=== PATIENT | male | born 1945 | race Caucasian/White ===

== ENCOUNTER → 2017-05-10 10:51 | Outpatient (CLI) | payer BC, SELFPAY ==
[2017-05-10 11:27] LABS: Hemoglobin A1C 6.4 % (0.0-7.0)
[2017-05-10 11:55] LABS: Alanine Aminotransferase 40 U/L (12-78); Albumin Level 4.1 gm/dL (3.4-5.0); Albumin/Globulin Ratio 1.2 (1.1-1.8); Alkaline Phosphatase 52 U/L (46-116); Anion Gap 14.4 mEq/L (5-15); Aspartate Amino Transferase 25 U/L (15-37); Bilirubin,Total 0.5 mg/dL (0.2-1.0); Blood Urea Nitrogen 27 mg/dL (7-18); Calcium 8.8 mg/dL (8.5-10.1); Carbon Dioxide 27 mmol/L (21.0-32.0); Chloride 105 mmol/L (98-107); Chol/HDL Ratio 3.2 (1-3.5); Cholesterol 156 mg/dL (140-200); Creatinine,Serum 1.21 mg/dL (0.70-1.30); Estimated Glomerular Filt Rate 59 ml/min (>60); GFR (African American) 71 ML/MIN (>60); Globulin 3.4 gm/dl (1.3-3.2); Glucose 137 mg/dL (74-106); HDL Cholesterol 49 mg/dL (27-67); LDL Cholesterol 77 mg/dL (0-130); Potassium 4.4 mmoL/L (3.5-5.1); Sodium 142 mmol/L (136-145); Total Protein,Serum 7.5 gm/dL (6.4-8.2); Triglycerides 148 mg/dL (30-200); VLDL Cholesterol 30 mg/dL (0-40)
== END ==
PROVIDERS: PCP Internal Medicine Adolescent Medicine; Visit Provider Internal Medicine Adolescent Medicine
DX: E78.5 Hyperlipidemia, unspecified (principal); E11.9 Type 2 diabetes mellitus without complications
CPT/HCPCS: 36415; 80053; 80061; 83036

== ENCOUNTER → 2017-08-24 15:42 | Outpatient (CLI) | payer BC, SELFPAY ==
--- NOTE | 2017-08-24 15:50 | XR_ITS ---
EXAM: XR cervical spine 5V HISTORY: ITS.REASON: LT ARM PAIN..CERVICAL NEURALGIA ORDERING PHYSICIAN: Roland Dasilva MD PATIENT AGE: 72 years COMPARISON: None FINDINGS: Normal alignment. There is degenerative disc disease at C5-C6 and C6-C7. Anterior osteophytes are present at those levels as well. Foraminal narrowing is noted on the left at C6-C7 and on the right at C3-C4 and C4-C5 and C6-C7. Facet arthritic changes are noted. Incidental vascular calcification of the carotids. IMPRESSION: Cervical spondylosis with degenerative disc disease and facet arthritic change with foraminal narrowing as described above
== END ==
PROVIDERS: PCP Internal Medicine Adolescent Medicine; Visit Provider Internal Medicine Adolescent Medicine
DX: M54.12 Radiculopathy, cervical region (principal); M79.602 Pain in left arm
CPT/HCPCS: 72050

== ENCOUNTER → 2017-09-02 16:08 | Outpatient (CLI) | payer BC, SELFPAY ==
--- NOTE | 2017-09-02 16:12 | MR_ITS ---
MR cervical spine wo con, MR 3-d myelogram/MRCP HISTORY: Left arm tingling and numbness ITS.REASON: CERVICAL NEURALGIA ORDERING PHYSICIAN: Roland Dasilva MD PATIENT AGE: 72 years Comparison: 08/24/2017 TECHNIQUE: Standard multiplanar multiecho sequences are performed without contrast. 3-D MIP and myelographic images are also rendered and reviewed FINDINGS: There is normal alignment. The craniocervical junction has an unremarkable appearance. C2-C3: Mild right-sided foraminal narrowing from facet and uncovertebral hypertrophy. C3-C4: Mild degenerative disc disease with minimal bulging disc slightly eccentric toward the right. Mild right foraminal narrowing from facet and uncovertebral hypertrophy. C4-C5: Minimal uncovertebral hypertrophy with mild bilateral foraminal narrowing. C5-C6: Degenerative disc disease with bulging disc and facet and uncovertebral hypertrophy with borderline narrowing of the canal. There is severe left-sided foraminal narrowing from facet and uncovertebral hypertrophy and mild right-sided foraminal narrowing. There are prominent etiology osteophytes. C6-C7: Degenerative disc disease with bulging disc/disc osteophyte complex eccentric towards the left with borderline narrowing of the canal at 11 mm. There is moderate to severe right foraminal narrowing and severe left foraminal narrowing from the bulging disc/disc osteophyte complex along with uncovertebral and facet hypertrophy. C7-T1: Unremarkable. There is decreased T1 and decreased T2 signal involving the C5 and C6 vertebral bodies with very slight increase in STIR signal. Questionable clinical significance. Blastic lesion at C5 and C6 is a consideration. The cervical spine images however do not support this finding. Does patient have a history of prostate cancer? Bone scan may be of further value clinically warranted. IMPRESSION: 1. There is multilevel cervical spondylosis with degenerative disc disease, bulging disc, and facet and ligamentum flavum hypertrophy. Please see above for detailed description at each level. There is borderline canal stenosis at C5-C6 and C6-C7 with severe left-sided foraminal narrowing at C5-6, moderate to severe right-sided foraminal narrowing at C6-C7 and severe left-sided foraminal narrowing at C6-C7. 2. Decreased T1 and T2 signal of the C5 and C6 vertebral bodies showing slight increased STIR signal. Question clinical significance. Possible blastic lesions. Bone scan may be of further value if clinically warranted
== END ==
PROVIDERS: Family Provider Internal Medicine Adolescent Medicine; PCP Internal Medicine Adolescent Medicine; Visit Provider Internal Medicine Adolescent Medicine
DX: M54.12 Radiculopathy, cervical region (principal)
CPT/HCPCS: 72141; 76376

== ENCOUNTER → 2017-09-12 07:18 | Outpatient (CLI) | payer BC, SELFPAY ==
--- NOTE | 2017-09-12 08:13 | CI_ITS ---
Cerebrovascular Exam Indications: 785.9 Bruit. IMPRESSIONS 1. The bilateral vertebral arteries are patent with normal antegrade flow. 2. Study suggests 20-49% stenosis involving the right internal carotid artery and the left internal carotid artery, lower end of scale. Carotid duplex study. Complete study and Doppler flow study including spectral analysis, color and mar scale imaging. Height: Height: 177.8cm. Height: 70in. Weight: Weight: 88.5kg. Weight: 194.6lb. Body mass index: BMI: 28kg/m^2. Body surface area: BSA: 2.11m^2. Location: Vascular laboratory. Patient status: Outpatient. Tables: Arterial flow: + +--------+--------+ Location V sys V ed + +--------+--------+ Right CCA - proximal 104cm/s 26.7cm/s + +--------+--------+ Right CCA - distal 88.8cm/s 21.2cm/s + +--------+--------+ Right ECA 109cm/s -------- + +--------+--------+ Right ICA - proximal 87.7cm/s 30.3cm/s + +--------+--------+ Right ICA - mid 95.9cm/s 36.4cm/s + +--------+--------+ Right ICA - distal 87.1cm/s 41.9cm/s + +--------+--------+ Right vertebral 40.8cm/s -------- + +--------+--------+ Left CCA - proximal 142cm/s 30.7cm/s + +--------+--------+ Left CCA - distal 92.2cm/s 21.6cm/s + +--------+--------+ Left ECA 124cm/s -------- + +--------+--------+ Left ICA - proximal 78.2cm/s 30cm/s + +--------+--------+ Left ICA - mid 103cm/s 34.2cm/s + +--------+--------+ Left ICA - distal 116cm/s 43.3cm/s + +--------+--------+ Left vertebral 78.2cm/s -------- + +--------+--------+ Velocity ratios: + + + + + + Right, V sys Right, V ed Left, V sys Left, V ed + + + + + + Max ICA/dist CCA 1.08 1.98 1.26 2 + + + + + + (Report amended ) Electronically signed by: Fortunato Pollard [id number]
== END ==
PROVIDERS: Family Provider Internal Medicine Adolescent Medicine; PCP Internal Medicine Adolescent Medicine; Visit Provider Internal Medicine Adolescent Medicine
DX: R09.89 Other specified symptoms and signs involving the circulatory and respiratory systems (principal)
CPT/HCPCS: 93880

== ENCOUNTER 2017-11-04 15:00 | Outpatient (RCR) | payer BC, SELFPAY ==
--- NOTE | 2017-10-14 16:33 | [facility].PTOPEV ---
PT Outpatient Evaluation Rehab PT Outpatient Evaluation Start: 10/14/17 16:10 Freq: Status: Active Protocol: Document 10/14/17 16:10 GERAENRIQUE (Rec: 10/14/17 16:33 GERAADITYAEMILY [email or web address]) Electronically Signed By Javon Vega, PT 10/14/17 16:10 Outpatient Therapy Subjective History Subjective History Patient is a 72 year old male presenting to outpatient PT with reports of LUE radiculopathy of insidious onset starting 08/30/17. Most recent MRI indicated multi- level DDD, spondylosis and disc bulges. Symptoms exacerbated with cervical extension. Comorbidities include HTN and hyperlipidemia . Chief Complaint Pain Stiff Clicks Paresthesia Symptom Type Ache Tingling Symptoms Relieved By Rest/Positioning OTC Meds Prescription Meds Activity Symptoms Aggravated By Physical Activity Prior Functional Limitations None Current Functional Limitations Reaching Lifting Housework Standing Sitting Recreation Activity Walking Level of pain today (0-10) 4 Pain scale - at its best (0-10) 3 Pain scale - at its worst (0-10) 8 Cervical Eval Palpation Cervical Muscles R Cervical Paraspinal L Cervical Paraspinal Cervical/Thoracic Palpation Findings Tenderness Posture Head/C-Spine Posture Sitting Position Neutral Position Flexibility Deficits Upper Trapezius Muscle Length (R) WFL (L) WFL Levaetor Scapulae Muscle Length (R) WFL (L) WFL Pectoralis Minor Muscle Length (R) Mild Tightness (L) Mild Tightness Passive Joint Mobility Cervical PIVM Dec: R OA L OA R AA L AA R C2/3 L C2/3 R C3/4 L C3/4 R C4/5
== END 2017-11-04 15:01 | disposition home or self-care (01) ==
LOC: PT 15:00
PROVIDERS: Family Provider Internal Medicine Adolescent Medicine; PCP Internal Medicine Adolescent Medicine; Visit Provider Internal Medicine Adolescent Medicine
DX: M54.12 Radiculopathy, cervical region (principal)
CPT/HCPCS: 97010; 97012; 97014; 97110; 97163; G0283

== ENCOUNTER → 2018-01-24 09:27 | Outpatient (CLI) | payer BC, SELFPAY ==
--- NOTE | 2018-01-24 09:56 | CT_ITS ---
CT chest w con HISTORY: ITS.REASON: PROSTATE CA WITH BONE METS ORDERING PHYSICIAN: Edilberto Xiong PATIENT AGE: 73 years COMPARISON: None TECHNIQUE: Axial images obtained following the administration of 75 mL of Isovue 370 . Sagittal, and coronal reformatted images are also generated and reviewed. All CT scans at the facility use one or more dose reduction, viz: automated exposure control, ma/kV adjustment per patient size (including targeted exams where dose is matched to indication, i.e. head), or iterative reconstruction technique. FINDINGS: Scattered small nodes are present in the mediastinum some which contain calcification. No mediastinal or hilar mass or adenopathy is evident. No evidence of aortic aneurysm, dissection, or central pulmonary embolus. Normal heart size. No pericardial effusion. There are mild biapical fibrotic changes with mild centrilobular and paraseptal emphysema mild bronchial thickening noted with hyperinflation suggesting small airway disease such as COPD or asthma. There is a nodule located along the left major fissure superiorly which measures 5 mm image 41 series 4. A 6 mm slightly irregular nodule present in the left upper lobe superiorly and posteriorly image #29 series 4. There is degenerative disc disease in lower cervical spine. No obvious blastic foci are evident within the thoracic cage. There are few small foci of increased sclerosis in the endplates of the thoracic spine probably degenerative. IMPRESSION: 1. No convincing evidence of metastatic disease. 2. Indeterminate 6 mm left upper lobe nodule. Suggest 6 month follow-up. 3. Fibrotic changes with centrilobular and paraseptal emphysema/COPD 4. No obvious bony blastic lesions.
--- NOTE | 2018-01-24 09:57 | CT_ITS ---
CT abdomen pelvis w con CLINICAL INDICATION: ITS.REASON: PROSTATE CA WITH BONE METS ORDERING PHYSICIAN: Edilberto Xiong PATIENT AGE: 73 years COMPARISON: None TECHNIQUE: Axial images obtained with sagittal and coronal reformats. All CT scans at the facility use one or more dose reduction, viz: automated exposure control, ma/kV adjustment per patient size (including targeted exams where dose is matched to indication, i.e. head), or iterative reconstruction technique. PROCEDURE: Oral Contrast: Redicat IV Contrast: 75 mL's of Isovue-370 performed in conjunction with the chest CT. FINDINGS: The liver, gallbladder, spleen, pancreas, adrenal glands, and kidneys have an unremarkable appearance. No retroperitoneal adenopathy. No abdominal mass. No intestinal obstruction or free air. No evidence of appendicitis or diverticulitis. There are scattered diverticula in the descending and sigmoid colon. No pelvic mass abnormal fluid collection or focal inflammatory change. There are central prostate calcification. The prostate measures 4.3 x 3.1 cm. There are bilateral hernias which contain fat. No pelvic adenopathy. No fracture or dislocation. There is grade 1-2 spondylitic spondylolisthesis of L5 on S1 with facet arthritic changes at that level. No obvious bony blastic process. IMPRESSION: 1. No convincing evidence of metastatic disease. 2. Grade 1-2 spondylitic spondylolisthesis of L5 on S1 with degenerative disc disease and facet arthritic change there is 10 mm anterolisthesis of L5 3. No obvious bony blastic process. If there are studies which suggest blastic lesions then, an addendum may be added once they're made available. There are no bone scans available at this institution
== END ==
PROVIDERS: PCP Internal Medicine Adolescent Medicine; Visit Provider Internal Medicine Medical Oncology
DX: C61 Malignant neoplasm of prostate (principal); C79.51 Secondary malignant neoplasm of bone
CPT/HCPCS: 71260; 74177; Q9967

== ENCOUNTER → 2018-07-10 08:52 | Outpatient (CLI) | payer BC, SELFPAY ==
--- NOTE | 2018-07-10 08:56 | NM_ITS ---
NM bone scan whole body Ordering Physician: Edilberto Xiong Patient Age: 73 years: Male HISTORY: ITS.REASON: PROSTATE CANCER TECHNIQUE: 3 hours administration 25.9 mCi MDP images entire skeleton were obtained COMPARISON studies :CT chest and CT abdomen January 2018 MRI cervical spine 09/02/2017 AP pelvis 07/10/2018 FINDINGS Increased activity most intense at the lower left cervical spine . This corresponds with the areas of prominent degenerative disc changes partially seen on the CT chest from January 2018... Initially attributed to degenerative change but on closer inspection both prior studies there is a rounded area of relative sclerosis left C6 vertebral on the January CT chest. On the August 2017 MRI C-spine a would note there there also a focal area of abnormal signal at the left C6 vertebral body which then continues into the left pedicle and left facet.-Not typical of a degenerative pattern on MR. Thus in reviewing these patterns I am more suspect that there may indeed be metastatic disease here at C6 and adjacent vertebral body, particularly given the intense nature of activity here on today's bone scan, --- At the pelvis there is increased activity at the medial aspect of the left acetabulum on today's bone scan... A plain film of pelvis from today does show focus increased bone density here medial inferior margin of inferior acetabulum. Close inspection of January CT also shows this increased density both the medial inferior acetabulum on the left as seen on coronal image 54 on that study, there is also a second small small sclerotic focus at the posterior margin ischium at its junction with the acetabulum. These areas suspect for early blastic metastatic deposits ----- There are scattered small foci of of increased signal throughout the spine. These are nonspecific. Initially suspect for metastatic disease but When compared to the CT chest from last January several of these may be reflection of hypertrophic/ degenerative features Specifically noted area projected over right pedicle of T12.-could be related to generous marginal osteophyte here Left T10 costovertebral junction. Hypertrophic changes bilaterally at the costovertebral junction at this level. Right T8 pedicle nonspecific small sclerotic focus mildly suspect for metastatic disease. Tiny focus at the medial left seventh rib mildly suspect for metastatic disease but indeterminate. . Increased activity T6 level.-Which Reflect the prominent posterior element hypertrophy seen here and less likely metastatic disease.. This hypertrophic feature Most evident at midline,, & indents the posterior aspect of thecal sac and yield spinal stenosis. Subtle increased signal seventh rib reflecting old injury versus early lesion. . This patient may benefit from a follow-up PET/CT with agents but specifically for prostate cancer. Understand is been a prior bone scan elsewhere which may also be helpful for comparison if not too far in the remote past IMPRESSION 1. Most intense activity is seen at the lower left cervical spine, compatible with C6 level and possibly adjacent vertebra.. After reviewing prior CT and MR this area most suspect for early metastatic lesion, but also activity here from degenerative changes. 2. Increased activity medial left acetabulum also suspect for early sclerotic blastic metastatic deposit-(see comments body of report as well as AP pelvis from today) 3. Other scattered areas of increased activity throughout T-spine are less specific. Some are degenerative in nature but some could reflect small metastatic foci. to discern these areas of degenerative change versus metastatic disease, you may want toConsider follow-up PET/CT, with ar
--- NOTE | 2018-07-10 12:58 | XR_ITS ---
XR pelvis 1-2V Ordering Physician: Edilberto Xiong Patient Age: 73 years: Male HISTORY: ITS.REASON: HOT SPOT ON BONE SCAN TECHNIQUE: AP osseous pelvis COMPARISON : Nuclear medicine bone scan from today Also a CT abdomen pelvis from January 24, 2018 FINDINGS Osseous pelvis appears intact. Hip joint spaces well-maintained with only borderline narrowing superior joint spaces bilaterally. Femoral head and neck otherwise unremarkable. The sacrum and iliac bone unremarkable. Pubis unremarkable. Particular attention directed towards medial aspect the left acetabulum at the focus of slight increased activity on bone scan. There is a very slight increased density seen at the inferior aspect of the acetabulum on this study. In reviewing prior CT from January 2018 there is slight increased density inferior acetabulum as well as at posterior margin of the iliac bone leading to acetabulum. These may indeed reflect small areas of early metastatic bone disease Small area of increased activity on bone scan correlates with subtle increased osseous density medial inferior aspect of the left acetabulum on this plain film (as well as on prior Jan, 2018 CT) , this area suspect for small focus of early metastatic disease. (Prior January 2018 CT also showed smaller very subtle increased osseous activity along the posterior margin of the ilium at this same level. Possibly reflecting small focus metastatic disease ) IMPRESSION Today's plain films pelvis show a focal dense area at the medial inferior left acetabulum-which corresponds to area of increased activity on today's bone scan. At reviewing prior CT from January as well, this area suspect for small sclerotic, blastic metastatic focus.
== END ==
PROVIDERS: PCP Internal Medicine Adolescent Medicine; Visit Provider Internal Medicine Medical Oncology
DX: C79.51 Secondary malignant neoplasm of bone (principal)
CPT/HCPCS: 72170; 78306; A9503

== ENCOUNTER → 2018-08-22 08:25 | Outpatient (CLI) | payer BC, SELFPAY ==
--- NOTE | 2018-08-22 08:37 | CT_ITS ---
CT abdomen pelvis w con CLINICAL INDICATION: Metastatic prostate cancer ITS.REASON: BONE METASTASES ORDERING PHYSICIAN: Edilberto Xiong PATIENT AGE: 73 years COMPARISON: 01/24/2018 TECHNIQUE: Axial images obtained with sagittal and coronal reformats. All CT scans at the facility use one or more dose reduction, viz: automated exposure control, ma/kV adjustment per patient size (including targeted exams where dose is matched to indication, i.e. head), or iterative reconstruction technique. PROCEDURE: Oral Contrast: Redicat IV Contrast: 50 mL's Optiray 350 performed in conjunction with the chest CT. FINDINGS: The liver, spleen, adrenal glands, pancreas, gallbladder, and kidneys have an unremarkable appearance. No intestinal obstruction or free air. No evidence of appendicitis. There is diverticulosis of the sigmoid colon but no evidence of diverticulitis. There is mild amount of retained colonic feces. Central prostate calcification is noted. The prostate is smaller than when compared to the previous exam measuring 3.4 x 2.7 cm previously 4.3 x 3.1 cm. There are small bilateral inguinal hernias containing. There is now evidence of scattered blastic metastatic foci within the pelvis at the right superior pubic ramus, the left ilium medially, L5 vertebral vertebral body on the right anteriorly, the medial aspect of left acetabulum, left ischial spine, L2 vertebral body superior endplate. IMPRESSION: 1. New scattered blastic metastatic foci 2. Prostate gland is smaller compared to the previous exam. 3. Otherwise negative
--- NOTE | 2018-08-22 08:37 | CT_ITS ---
CT chest w con HISTORY: Metastatic prostate cancer workup ITS.REASON: BONE METASTASES ORDERING PHYSICIAN: Edilberto Xiong PATIENT AGE: 73 years COMPARISON: 01/24/2018 TECHNIQUE: Axial images obtained following the administration of 75 mL of Optiray 350 . Sagittal, and coronal reformatted images are also generated and reviewed. All CT scans at the facility use one or more dose reduction, viz: automated exposure control, ma/kV adjustment per patient size (including targeted exams where dose is matched to indication, i.e. head), or iterative reconstruction technique. FINDINGS: No mediastinal or hilar mass or adenopathy. Normal heart size. There are coronary artery calcifications. COPD with centrilobular and paraseptal emphysema. There is a new small parenchymal opacity in the right lower lobe posterior laterally at 7 x 4 mm. This is nonspecific. No lobar consolidation or collapse. No effusions. There are some minimal scattered fibrotic changes. Previously noted opacity in the left major fissure superiorly and laterally somewhat less apparent. Previously noted nodular density in the left upper lobe posteriorly is less apparent. There are new sclerotic foci present involving the T8 vertebral body posteriorly and superiorly, T7 vertebral body inferiorly, T6 vertebral body superiorly with an additional focus superiorly and posteriorly. Sclerosis involving C7, the right third rib, the transverse process on the left at T10. IMPRESSION: 1. There are multiple new blastic foci of the spine and ribs consistent with metastatic disease. 2. COPD/centrilobular and paraseptal emphysema. 3. A small new parenchymal opacity is 7 x 4 mm is present in the right lower lobe. This nonspecific and could be due to an area of developing fibrosis or atelectasis. 2 other nodular opacities previously noted are somewhat less apparent. Suggest continued follow-up to confirm stability or resolution of the nodular density as metastatic disease cannot totally be excluded
--- NOTE | 2018-08-22 08:37 | CT_ITS ---
CT soft tissue neck w con CLINICAL INDICATION: Metastatic prostate cancer, left neck swelling where is the th [facility].REASON: BONE METASTASES ORDERING PHYSICIAN: Edilberto Xiong PATIENT AGE: 73 years COMPARISON: None TECHNIQUE:Axial images obtained with sagittal and coronal reformats following the intravenous administration of 50 mL of Optiray 350. All CT scans at the facility use one or more dose reduction, viz: automated exposure control, ma/kV adjustment per patient size (including targeted exams where dose is matched to indication, i.e. head), or iterative reconstruction technique. FINDINGS: There is some asymmetry in the nasopharynx with some fullness on the left nonspecific. The sinuses and orbits have an unremarkable appearance. A BB is placed along the palpable nodule of the left neck demonstrating a 21 x 18 x 28 mm lobulated nodule within the inferior aspect of the left parotid gland. There is some heterogeneous density within the nodule. There are few scattered small lymph nodes in the neck. The glottic and subglottic region have an unremarkable appearance. The thyroid gland is unremarkable. Sclerosis involves the C5 and C6 vertebral bodies with severe degenerative disc disease at this area there is a small sclerotic focus involving the C3 vertebral body slightly on the right. IMPRESSION: 1. 28 x 21 x 18 mm lobulated nodule within the inferior aspect of left parotid gland. Differential diagnosis includes a pleomorphic adenoma, Warthin's tumor, or enlarged parotid lymph node. Ultrasound-guided fine-needle aspiration could be performed if clinically desired. 2. Degenerative changes of C5-C6 with suspected sclerotic metastasis in C5 and C6 vertebral body.
== END ==
PROVIDERS: PCP Internal Medicine Adolescent Medicine; Visit Provider Internal Medicine Medical Oncology
DX: C61 Malignant neoplasm of prostate (principal); C79.51 Secondary malignant neoplasm of bone
CPT/HCPCS: 70491; 71260; 74177; Q9967

== ENCOUNTER → 2019-03-01 15:04 | Outpatient (CLI) | payer BC, SELFPAY ==
[2019-03-01 19:09] LABS: Alanine Aminotransferase 35 U/L (12-78); Albumin/Globulin Ratio 1.3 (1.1-1.8); Alkaline Phosphatase 43 U/L (46-116); Anion Gap 17.8 mEq/L (5-15); Aspartate Amino Transferase 14 U/L (15-37); Bilirubin,Total 0.6 mg/dL (0.2-1.0); Blood Urea Nitrogen 26 mg/dL (7-18); Calcium 8.8 mg/dL (8.5-10.1); Carbon Dioxide 25 mmol/L (21.0-32.0); Chloride 102 mmol/L (98-107); Creatinine,Serum 1.52 mg/dL (0.70-1.30); Estimated Glomerular Filt Rate 45 ml/min (>60); GFR (African American) 54 ML/MIN (>60); Globulin 3.2 gm/dl (1.3-3.2); Glucose 281 mg/dL (74-106); Potassium 4.8 mmoL/L (3.5-5.1); Sodium 140 mmol/L (136-145); Total Protein,Serum 7.2 gm/dL (6.4-8.2)
== END ==
PROVIDERS: Visit Provider Internal Medicine Medical Oncology
DX: C61 Malignant neoplasm of prostate (principal)
CPT/HCPCS: 36415; 80053

== ENCOUNTER → 2019-03-05 08:56 | Outpatient (CLI) | payer BC, SELFPAY ==
--- NOTE | 2019-03-05 09:00 | NM_ITS ---
PROCEDURE: NM BONE SCAN WHOLE BODY CLINICAL INDICATION: MTASTATIC CANCER Metastatic prostate cancer, bone metastasis COMPARISON: BONEWB NM bone scan whole body from 07/10/2018 TECHNIQUE: Dose: 25.8 mCi technetium MDP FINDINGS: Multiple foci of increased activity once again noted including, medial aspect of the left acetabulum, right pedicle of T12, costovertebral junction on the left at T10 and to lesser degree on the right at the same level, right T8 costovertebral junction, and the T6 vertebral body as well as the inferior aspect of the sternum at the xiphoid on the right. These areas do appear less intense compared to the previous exam. Previously noted focus of increased activity at T7 rib on the left medially is less apparent.. Slight increased activity in the lower cervical spine as previously described somewhat less apparent on today's exam. No new lesions are demonstrated. IMPRESSION: 1. No new lesions evident. 2. There are multiple small foci of hyperactivity in the spine and ribs and left acetabulum as described above. These areas do appear less intense compared to the previous exam which could be reflection of the technique or interval improvement in metastatic disease. This is most noticeable at the left 7th rib. Dictated by: Cheo Severino MD 03/07/2019 06:27 Electronically signed by Cheo Severino MD in [place] 03/07/2019 06:27
== END ==
PROVIDERS: PCP Internal Medicine Adolescent Medicine; Visit Provider Internal Medicine Medical Oncology
DX: C61 Malignant neoplasm of prostate (principal); C79.51 Secondary malignant neoplasm of bone
CPT/HCPCS: 78306; A9503

== ENCOUNTER → 2019-03-06 08:57 | Outpatient (CLI) | payer BC, SELFPAY ==
--- NOTE | 2019-03-06 09:02 | CT_ITS ---
PROCEDURE: CT ABDOMEN PELVIS W CON CLINICAL INDICATION: PROSTATE CANCER Follow-up prostate cancer COMPARISON: ABDPELW CT abdomen pelvis w con from 01/24/2018 NM BONE SCAN WHOLE BODY from 03/05/2019 CT CHEST W CON from 03/06/2019 TECHNIQUE: IV Contrast: 75ML OPTIRAY 350 Oral Contrast 450ml Redicat Axial images obtained with sagittal and coronal reformats. All CT scans at the facility use one or more dose reduction, viz: automated exposure control, ma/kV adjustment per patient size (including targeted exams where dose is matched to indication, i.e. head), or iterative reconstruction technique. FINDINGS: LOWER THORAX: No acute finding ABDOMEN & PELVIS: Mild thickening of the distal esophagus nonspecific. Liver, spleen, adrenal glands, and pancreas have an unremarkable. The kidneys have an unremarkable appearance. No intra-abdominal mass or retroperitoneal adenopathy evident. There are small bilateral inguinal hernias which contain fat. There is colonic diverticulosis but no evidence of diverticulitis. Unremarkable appendix. Grade 2 spondylitic spondylolisthesis is present at L5-S1. A sclerotic focus is present involving the right aspect of the L5 vertebral body. This is slightly more apparent and well-circumscribed than when compared to the previous exam.. There are multiple small the sclerotic foci in the sacrum centrally at the S1 segment. Sclerotic foci are also present in the left ilium medially and laterally which have developed in the interval. Sclerotic focus is present in the left acetabulum more prominent than when compared to the previous study. There is also sclerotic focus in the right superior pubic ramus. IMPRESSION: 1. Multiple sclerotic lesions of the skeleton as described above within the lumbar spine sacrum left ilium and pelvis consistent with blastic bony metastasis which have increased and/or developed since the previous exam. The bone scan is not remarkable for increased activity at many of these areas. 2. No evidence of solid organ metastasis Dictated by: Cheo Severino MD 03/07/2019 13:51 Electronically signed by Cheo Severino MD in [place] 03/07/2019 13:51
--- NOTE | 2019-03-06 09:02 | CT_ITS ---
PROCEDURE: CT CHEST W CON CLINCAL INDICATION: PROSTATE CANCER COMPARISON: CHESTW CT chest w con from 01/24/2018 BONEWB NM bone scan whole body from 07/10/2018 NM BONE SCAN WHOLE BODY from 03/05/2019 CT ABDOMEN PELVIS W CON from 03/06/2019 TECHNIQUE: IV Contrast: 75ml Optiray 350 Axial images obtained with sagittal and coronal reformats. All CT scans at the facility use one or more dose reduction, viz: automated exposure control, ma/kV adjustment per patient size (including targeted exams where dose is matched to indication, i.e. head), or iterative reconstruction technique. FINDINGS: No mediastinal or hilar mass or adenopathy. There is COPD with hyperinflation and areas of scarring. Previously noted nodular opacity in the left apex and in the left major fissure region is no longer apparent. No new nodules are evident. There are coronary artery calcifications. There are multiple blastic bony lesions including the left aspect of the vertebral body at C6, the right aspect of the xiphoid process, right 3rd rib, the right 4th rib anteriorly, the left 3rd rib, the left 8th rib laterally, T8 vertebral body on the right in a small focus of the T8 vertebral body on the left, inferior endplate of T9 vertebral body on the right, superior endplate of T6, the left pedicle of T1. IMPRESSION: 1. Progression of blastic bony metastasis 2. Left upper lobe pulmonary nodules are no longer apparent Dictated by: Cheo Severino MD 03/07/2019 14:20 Electronically signed by Ceho Severino MD in [place] 03/07/2019 14:20
== END ==
PROVIDERS: PCP Internal Medicine Adolescent Medicine; Visit Provider Internal Medicine Medical Oncology
DX: C61 Malignant neoplasm of prostate (principal); C79.51 Secondary malignant neoplasm of bone
CPT/HCPCS: 71260; 74177; Q9967

== ENCOUNTER → 2019-09-10 09:12 | Outpatient (CLI) | payer MEDICARE, SELFPAY ==
--- NOTE | 2019-09-10 09:18 | NM_ITS ---
PROCEDURE: NM BONE SCAN WHOLE BODY CLINICAL INDICATION: PROSTATE CA The COMPARISON: NM BONE SCAN WHOLE BODY from 03/05/2019 TECHNIQUE: Dose: 24.8 mCi technetium MDP FINDINGS: Overall no change in the multiple foci of increased activity including ribs, xiphoid region of the sternum, and left acetabulum as well as the left pedicle of T12 in the costovertebral junction of T10 on both sides. No new lesions are evident. IMPRESSION: Stable bone scan appearance of the skeleton. No new lesions apparent Dictated by: Cheo Severino MD 09/10/2019 19:29 Electronically signed by Cheo Severino MD in [facility] 09/10/2019 19:29
[2019-09-10 16:00] LABS: Blood Urea Nitrogen 25 mg/dl (9-20); Estimated Glomerular Filt Rate 54 ml/min (>60); GFR (African American) 65 ML/MIN (>60)
== END ==
PROVIDERS: PCP Internal Medicine Adolescent Medicine; Visit Provider Internal Medicine Medical Oncology
DX: C61 Malignant neoplasm of prostate (principal)
CPT/HCPCS: 36415; 78306; 82565; 84520; A9503

== ENCOUNTER → 2019-09-12 08:51 | Outpatient (CLI) | payer MEDICARE, SELFPAY ==
--- NOTE | 2019-09-12 08:57 | CT_ITS ---
PROCEDURE: CT CHEST W CON CLINCAL INDICATION: PROSTATE CA F/U COMPARISON: CT CHEST W CON from 03/06/2019 CT ABDOMEN PELVIS W CON from 09/12/2019 TECHNIQUE: IV Contrast: 75ml Optiray 350 Axial images obtained with sagittal and coronal reformats. All CT scans at the facility use one or more dose reduction, viz: automated exposure control, ma/kV adjustment per patient size (including targeted exams where dose is matched to indication, i.e. head), or iterative reconstruction technique. FINDINGS: Tracheobronchial tree is remarkable for some stable bronchiectasis in the posterior segment of the right upper lobe. There are stable early interstitial fibrotic changes within the bilateral lower lobes, right greater than left. The thyroid is unremarkable. There is no significant mediastinal adenopathy. There are coronary artery calcifications. Hiatal hernia is noted. Soft tissues are unremarkable. There are blastic changes of the lower cervical, upper an mid thoracic spine, bilateral 3rd, right 4th, left 8th ribs, and the xiphoid. IMPRESSION: Stable right upper lobe bronchiectasis, stable osteoblastic skeletal disease Dictated by: Colby Damon 09/12/2019 10:14 Electronically signed by Colby Damon in [place] 09/12/2019 10:14
--- NOTE | 2019-09-12 09:00 | CT_ITS ---
PROCEDURE: CT ABDOMEN PELVIS W CON CLINICAL INDICATION: PROSTATE CA COMPARISON: CT ABDOMEN PELVIS W CON from 03/06/2019 TECHNIQUE: IV Contrast: 75ML OPTIRAY 350 Oral Contrast None Axial images obtained with sagittal and coronal reformats. All CT scans at the facility use one or more dose reduction, viz: automated exposure control, ma/kV adjustment per patient size (including targeted exams where dose is matched to indication, i.e. head), or iterative reconstruction technique. FINDINGS: The enhanced liver, gallbladder, adrenal glands, pancreas, spleen, kidneys, aorta, small and large large bowel and the appendix is unremarkable. There is a small hiatal hernia.. Soft tissues are intact. CT scan of the pelvis with contrast: Sigmoid diverticulosis is noted. Prostate, seminal vesicles, and soft tissues are unremarkable. Fat filled left inguinal hernia is again noted. There are stable osteoblastic lesions within the right pubic ramus, sacrum, left acetabulum, left iliac crest, L5 vertebral body, and left T11 transverse process. Grade 2 L5-S1 spondylolysis and spondylolisthesis is again noted. IMPRESSION: Stable bony osteoblastic metastatic disease, sigmoid diverticulosis Dictated by: Colby Damon 09/12/2019 10:22 Electronically signed by Colby Damon in [place] 09/12/2019 10:22
[2019-09-12 10:58] LABS: Alanine Aminotransferase 24 U/L (12-78); Albumin Level 4.2 g/dl (3.5-5.0); Albumin/Globulin Ratio 1.6 (1.1-1.8); Alkaline Phosphatase 54 U/L (38-126); Aspartate Amino Transferase 31 U/L (17-59); Bilirubin,Total 0.6 mg/dl (0.2-1.3); Blood Urea Nitrogen 25 mg/dl (9-20); Calcium 9.9 mg/dl (8.4-10.2); Carbon Dioxide 25 mmol/L (22.0-30.0); Chloride 99 mmol/L (98-107); Estimated Glomerular Filt Rate 42 ml/min (>60); GFR (African American) 51 ML/MIN (>60); Globulin 2.6 g/dL (1.3-3.2); Glucose 125 mg/dl (74-100); Sodium 135 mmol/L (136-145); Total Protein,Serum 6.8 g/dl (6.3-8.2)
== END ==
PROVIDERS: PCP Internal Medicine Adolescent Medicine; Visit Provider Internal Medicine Medical Oncology
DX: C61 Malignant neoplasm of prostate (principal); C79.51 Secondary malignant neoplasm of bone
CPT/HCPCS: 36415; 71260; 74177; 80053; Q9967

== ENCOUNTER → 2020-02-27 08:59 | Outpatient (CLI) | payer MEDICARE, SELFPAY ==
--- NOTE | 2020-02-27 09:01 | NM_ITS ---
PROCEDURE: NM BONE SCAN WHOLE BODY CLINICAL INDICATION: PROSTATE CANCER COMPARISON: [place] NM BONE SCAN WHOLE BODY from 09/10/[address] ABDOMEN PELVIS W CON from 09/12/[address] CHEST W CON from 09/12/2019 TECHNIQUE: Dose 25.2 mCi technetium MDP FINDINGS: Overall, the bone activity is somewhat less intense than when compared to the previous exam. Patient was asked to come back for another hour delay for scanning which showed some increase in the overall bone activity. There is focal increased activity involving the medial aspect of the 10th rib on both sides as well as the pedicle region T12 on both sides and the medial aspect the the 7th rib on the left. No new areas of abnormal tracer uptake identified. IMPRESSION: Stable scintigraphic appearance of the skeleton with no new lesions apparent. Dictated by: Cheo Severino MD 02/28/2020 13:05 Cheo Severino MD in [place] 02/28/2020 13:05
[2020-02-27 16:02] LABS: Blood Urea Nitrogen 23 mg/dl (9-20); Estimated Glomerular Filt Rate 54 ml/min (>60); GFR (African American) 65 ML/MIN (>60)
== END ==
PROVIDERS: PCP Internal Medicine Adolescent Medicine; Visit Provider Internal Medicine Medical Oncology
DX: C61 Malignant neoplasm of prostate (principal)
CPT/HCPCS: 36415; 78306; 82565; 84520; A9503

== ENCOUNTER → 2020-02-27 15:14 | Outpatient (CLI) | payer MEDICARE, SELFPAY | PROVIDERS: PCP Internal Medicine Adolescent Medicine; Visit Provider Internal Medicine Medical Oncology | DX: C61 Malignant neoplasm of prostate (principal); C79.51 Secondary malignant neoplasm of bone | CPT/HCPCS: 36415; 78306; 82565; 84520; A9503 ==

== ENCOUNTER → 2020-02-29 09:13 | Outpatient (CLI) | payer MEDICARE, SELFPAY ==
--- NOTE | 2020-02-29 09:16 | CT_ITS ---
PROCEDURE: CT ABDOMEN PELVIS W CON CLINICAL INDICATION: PROSTATE CANCER Follow-up prostate cancer COMPARISON: CT ABDPELW CT abdomen pelvis w con from 01/24/[address] ABDOMEN PELVIS W CON from 09/12/2019 TECHNIQUE: IV Contrast: 75ML Isovue 370 Oral Contrast None Axial images obtained with sagittal and coronal reformats. All CT scans at the facility use one or more dose reduction, viz: automated exposure control, ma/kV adjustment per patient size (including targeted exams where dose is matched to indication, i.e. head), or iterative reconstruction technique. FINDINGS: LOWER THORAX: No acute finding ABDOMEN & PELVIS: There is a 4 mm hypodensity in the left hepatic lobe which appears stable dating back to 01/24/2018. No new liver abnormalities evident. The spleen, adrenal glands, pancreas, and gallbladder have an unremarkable appearance. No renal or ureteral calculi. No hydronephrosis or renal mass. Unremarkable appendix. No intestinal obstruction or free air. There is a mild amount of retained colonic feces. There is diverticulosis of the descending and sigmoid colon. No evidence of diverticulitis. Urinary bladder wall is slightly thickened which is nonspecific. There are small bilateral inguinal hernias containing fat. Central prostate calcification noted There are scattered blastic metastasis not significantly changed. There is grade 2 spondylitic spondylolisthesis of L5 on S1. IMPRESSION: Stable CT appearance of the abdomen and pelvis. Scattered blastic metastasis. Colonic diverticulosis without diverticulitis Dictated by: Cheo Severino MD 03/01/2020 08:03 Cheo Severino MD in [place] 03/01/2020 08:03
--- NOTE | 2020-02-29 09:47 | CT_ITS ---
PROCEDURE: CT CHEST W CON CLINCAL INDICATION: PROSTATE CANCER COMPARISON: CT CT CHEST W CON from 09/12/2019 TECHNIQUE: IV Contrast: 75ml Isovue 370 Axial images obtained with sagittal and coronal reformats. All CT scans at the facility use one or more dose reduction, viz: automated exposure control, ma/kV adjustment per patient size (including targeted exams where dose is matched to indication, i.e. head), or iterative reconstruction technique. FINDINGS: HEART AND MEDIASTINAL STRUCTURES: No mediastinal or hilar mass or adenopathy. Coronary artery calcifications are present. LUNGS AND PLEURAL SPACES: Pulmonary fibrotic changes are once again noted. There is mild bronchial thickening. BONY STRUCTURES: There are scattered blastic foci once again noted unchanged. UPPER ABDOMEN: Unremarkable. ADDITIONAL FINDINGS: No other significant abnormalities. IMPRESSION: Stable CT appearance of the chest with scattered areas of fibrosis and osteoblastic metastasis.. Dictated by: Cheo Severino MD 03/01/2020 07:52 Cheo Severino MD in [place] 03/01/2020 07:52
== END ==
PROVIDERS: PCP Internal Medicine Adolescent Medicine; Referring Provider Internal Medicine Medical Oncology; Visit Provider Internal Medicine Medical Oncology
DX: C61 Malignant neoplasm of prostate (principal); C79.51 Secondary malignant neoplasm of bone; R68.84 Jaw pain
CPT/HCPCS: 71260; 74177; Q9967

== ENCOUNTER 2020-05-04 10:29 | Observation (INO) | payer MEDICARE, SELFPAY ==
[2020-05-04] VITALS (12 sets, daily range): BP systolic 90–129; BP diastolic 47–71; PULSE 60–77; RESP 16–22; TEMP 36.6–37; O2SAT 92–98; BMI 30.4; BMI 31.5
--- NOTE | 2020-05-04 10:26 | ECG_ITS ---
APPROVED REPORT Exam: Resting ECG HR:71 bpm ECG Measurements Heart Rate 71 AXES TN 206 P 9 QRSd 90 QRS -10 QT 394 T 44 QTc 428 Conclusion Normal sinus rhythm with sinus arrhythmia Nonspecific ST abnormality Abnormal ECG Electronically signed by : Roland Dasilva, 05/04/2020 16:00:17
--- NOTE | 2020-05-04 10:34 | HMH.EDGENADL ---
ED Disposition Clinical Impression: Chest pain, pleuritic, Neck pain, Elevated sed rate, Elevated C-reactive protein (CRP) Pericarditis Qualifiers: Pericarditis type: unspecified type Chronicity: acute Qualified Code(s): I30.9 - Acute pericarditis, unspecified Disposition: Admitted as Observation Condition on Discharge: [facility] Critical Care Critical Care Time: No Attestation: On , the high probability of a clinically significant, sudden or life threatening deterioration of the following system(s) required my full and direct attention, intervention and personal management. The time I documented below is in addition to time spent performing reported procedures but includes the following listed in this critical care notation. Medical Decision Making - Ilir Inquiry Pt receiving controlled substance: No Vital Signs: 05/04/20 10:30 05/04/20 10:54 05/04/20 11:19 Temperature 98 F Temperature Source Oral Pulse Rate Pulse Rate [Radial] 76 65 63 Respiratory Rate 18 18 18 Blood Pressure Blood Pressure [Right Arm] 129/58 L 118/62 102/57 L Blood Pressure Mean [Right Arm] 81 80 72 Blood Pressure Source Blood Pressure Source [Right Arm] Automatic Cuff Blood Pressure Position Blood Pressure Position [Right Arm] Sitting Supine 02 Sat by Pulse Oximetry 96 94 L 94 L Oxygen Delivery Method Room Air Room Air 05/04/20 11:46 05/04/20 12:23 05/04/20 12:41 Temperature Temperature Source Pulse Rate Pulse Rate [Radial] 65 71 77 Respiratory Rate 16 22 20 Blood Pressure Blood Pressure [Right Arm] 90/47 L 119/62 108/71 L Blood Pressure Mean [Right Arm] 61 81 83 Blood Pressure Source Blood Pressure Source [Right Arm] Blood Pressure Position Blood Pressure Position [Right Arm] 02 Sat by Pulse Oximetry 94 L 92 L 94 L Oxygen Delivery Method 05/04/20 13:42 05/04/20 13:55 05/04/20 14:40 Temperature 97.9 F 97.9 F Temperature Source Oral Oral Pulse Rate 67 Pulse Rate [Radial] 70 67 Respiratory Rate 18 18 16 Blood Pressure 127/68 Blood Pressure [Right Arm] 105/68 L 127/68 Blood Pressure Mean [Right Arm] 80 87 Blood Pressure Source Automatic Cuff Blood Pressure Source [Right Arm] Automatic Cuff Blood Pressure Position Sitting Blood Pressure Position [Right Arm] Sitting Sitting 02 Sat by Pulse Oximetry 94 L Oxygen Delivery Method Room Air Room Air - Lab Data Lab Results 05/04/20 10:25: WBC 11.6 H, RBC 3.64 L, Hgb 11.6 L, Hct 35.7 L, MCV 98.1 H, MCH 31.9 H, MCHC 32.5, RDW 16.0, Plt Count 179, MPV 8.8, Neut % (Auto) 79.4, Lymph % (Auto) 12.9, Cassia % (Auto) 5.3, Eos % (Auto) 2.1, Baso % (Auto) 0.3, Neut # (Auto) 9.2 H, Lymph # (Auto) 1.5, Cassia # (Auto) 0.6, Eos # (Auto) 0.2, Baso # (Auto) 0.0 05/04/20 10:25: Sodium 140, Potassium 3.5, Chloride 105, Carbon Dioxide 27, Anion Gap 11.5, BUN 25 H, Creatinine 1.50 H, Estimated Creat Clear 57, Estimated GFR 46 L, Est GFR ( Amer) 55 L, Glucose 106 H, Calcium 9.8, Troponin I < 0.01, C-Reactive Protein 6.2 H 05/04/20 10:25: ESR 108 H 05/04/20 11:39: Chlamy pneumoniae PCR Not detected, Adenovirus (PCR) Not detected, B. pertussis DNA (PCR) Not detected, Coronavirus OC43 (PCR) Not detected, Coronavirus HKU1 (PCR) Not detected, Coronavirus 229E (PCR) Not detected, SARS-CoV-2 (PCR) Not detected, Coronavirus NL63 (PCR) Not detected, Human Metapneumovir PCR Not detected, Influenza A (H1) PCR Not detected, Influ A (H1N1/09) PCR Not detected, Influenza A (H3) PCR Not detected, Influenza Type A (PCR) Not detected, Influenza Type B (PCR) Not detected, M. pneumoniae (PCR) Not detected, Parainfluenza 1 (PCR) Not detected, Parainfluenza 2 (PCR) Not detected, Parainfluenza 3 (PCR) Not detected, Parainfluenza 4 (PCR) Not detected, RSV (PCR) Not detected, Entero/Rhino (PCR) Not detected 05/04/20 12:55: Lactate 1.6 05/04/20 13:38: Troponin I < 0.01 Result diagrams: 05/04/20 10:25 05/04/20 10:25 Orders (Tests/Meds): ED MEDICATIONS
--- NOTE | 2020-05-04 10:48 | XR_ITS ---
PROCEDURE: XR CHEST PORTABLE CLINICAL HISTORY: cp Smoking history COMPARISON: CT CT CHEST W CON from 02/29/2020 FINDINGS: This is a somewhat poor inspiration. Cardiac size is likely normal considering the body habitus and poor inspiration. There is no vascular congestion. There is an ill-defined opacity at the left cardiophrenic angle which could represent postinflammatory scarring though a minimal pneumonic infiltrate cannot be excluded. The left upper lung field and right lung cifuentes are clear. There is no definite pleural fluid. IMPRESSION: Postinflammatory scarring versus early developing pneumonic infiltrate left lower lobe and a follow-up PA and lateral chest may be helpful for better overall evaluation Dictated by: Dr. Jj Nguyễn MD 05/04/2020 11:07 Dr. Jj Nguyễn MD in [place] 05/04/2020 11:07
[2020-05-04 10:52] LABS: Basophils % 0.3 % (0.1-2.0); Eosinophils # 0.2 K/mm3 (0.0-0.4); Eosinophils % 2.1 % (0.1-12.0); Hematocrit 35.7 % (42.0-52.0); Hemoglobin 11.6 g/dL (14.1-18.0); Lymphocytes # 1.5 K/mm3 (0.7-4.5); Lymphocytes % 12.9 % (10-50); Mean Corpuscular HGB Conc 32.5 g/dL (31.8-35.4); Mean Corpuscular Hemoglobin 31.9 pg (27.0-31.2); Mean Corpuscular Volume 98.1 fl (80-94); Mean Platelet Volume 8.8 fl (7.4-10.4); Monocytes # 0.6 K/mm3 (0.1-1.0); Monocytes % 5.3 % (1.7-9.3); Neutrophils # 9.2 K/mm3 (1.8-7.8); Neutrophils % 79.4 % (37.0-80.0); Platelet Count 179 K/mm3 (142-424); Red Blood Count 3.64 M/mm3 (4.60-6.20); White Blood Count 11.6 K/mm3 (4.8-10.8)
[2020-05-04 10:54] LABS: Chloride 105 mmol/L (98-107); Potassium 3.5 mmoL/L (3.5-5.1); Sodium 140 mmol/L (136-145)
[2020-05-04 10:57] LABS: Anion Gap 11.5 mEq/L (5-15); Blood Urea Nitrogen 25 mg/dl (9-20); Calcium 9.8 mg/dl (8.4-10.2); Carbon Dioxide 27 mmol/L (22.0-30.0); Creatinine Clearance Estimated 57 mL/min (50-200); Estimated Glomerular Filt Rate 46 ml/min (>60); GFR (African American) 55 ML/MIN (>60); Glucose 106 mg/dl (74-100)
[2020-05-04 11:04] LABS: C-Reactive Protein 6.2 mg/L (0-4)
[2020-05-04 11:14] LABS: Erythrocyte Sedimentation Rate 108 mm/hr (0-20); Troponin I < 0.01 ng/ml (0.00-0.034)
--- NOTE | 2020-05-04 11:17 | CT_ITS ---
Procedure: CT ANGIO CHEST CLINICAL HISTORY: pleuritic chest pain COMPARISON: CT CT CHEST W CON from 09/12/2019 CR XR CHEST PORTABLE from 05/04/2020 TECHNIQUE: IV Contrast: 100ml Isovue 370 Axial images obtained with sagittal and coronal reformats. All CT scans at the facility use one or more dose reduction, viz: automated exposure control, ma/kV adjustment per patient size (including targeted exams where dose is matched to indication, i.e. head), or iterative reconstruction technique. FINDINGS: No well expanded. There is excellent vascular opacification. There is no CT evidence of pulmonary emboli. Cardiac size is normal and there is no evidence of aortic dissection. There is no abnormal superior mediastinal or hilar lymphadenopathy. There is a minimal pneumonic infiltrate anterior segment left lower lobe with associated atelectasis and/or scarring and these findings were not seen on the previous CT scan of the chest. There is minimal atelectasis in the lateral and posterior basal segments left lower lobe as well. There is minimal bronchiectasis in the posterior segment right upper lobe basically stable and unchanged from previous CT scan of the chest 09/12/2019. There is no definite acute pneumonic infiltrate seen and there is no pleural fluid. IMPRESSION: Minimal infiltrate associated atelectasis or scarring anterior segment left lower lobe with atelectasis in the lateral and posterior basilar segments as well, there is no CT evidence of pulmonary emboli. Stable mild focal bronchiectasis posterior segment right upper lobe Dictated by: Dr. Jj Nguyễn MD 05/04/2020 12:27 Dr. Jj Nguyễn MD in [place] 05/04/2020 12:27
--- NOTE | 2020-05-04 11:52 | PC.NURSE ---
pt's gave medication list
[2020-05-04 11:55] LABS: Adenovirus,PCR Not Detected (NotDetected); Bordetella Pertussis Not Detected (NotDetected); Chlamydophila Pneumoniae, PCR Not Detected (NotDetected); Coronavirus 19, PCR Not Detected (NotDetected); Coronavirus 229E Not Detected (NotDetected); Coronavirus NL63 Not Detected (NotDetected); Coronavirus OC43 Not Detected (NotDetected); Coronovirus HKU1,PCR Not Detected (NotDetected); Human Metapneumovirus Not Detected (NotDetected); Influenza A, PCR Not Detected (NotDetected); Influenza AH1, 2009 Not Detected (NotDetected); Influenza AH1, PCR Not Detected (NotDetected); Influenza AH3,PCR Not Detected (NotDetected); Influenza B, PCR Not Detected (NotDetected); Mycoplasma Pneumoniae, PCR Not Detected (NotDetected); Parainfluenza 1, PCR Not Detected (NotDetected); Parainfluenza 2, PCR Not Detected (NotDetected); Parainfluenza 3, PCR Not Detected (NotDetected); Parainfluenza 4, PCR Not Detected (NotDetected); Respiratory Syncytial Virus Not Detected (NotDetected); Rhinovirus/Enterovirus Not Detected (NotDetected)
--- NOTE | 2020-05-04 12:39 | PC.NURSE ---
LAB CALLED TO DRAW CULTURES AND LACTIC
[2020-05-04 13:09] LABS: Lactic Acid 1.6 mmol/L (0.7-2.1)
--- NOTE | 2020-05-04 13:15 | PC.NURSE ---
Notified floor of negative swab and pt was ready for admission
--- NOTE | 2020-05-04 13:36 | P.CONPHA_ITS ---
[facility] Pharmacy VTE Monitoring - Patient Demographics Admission date: 05/04/20 Report Date: 05/04/20 Time: 13:36 Allergies/Adverse Reactions: Patient Allergies No Known Allergies Allergy (Unknown, Uncoded 03/08/17 14:28) Height: 1.78 m Weight: 96.162 kg Patient Problems: Current Active Problems Chest pain, pleuritic (Acute) Neck pain (Acute) Elevated sed rate (Acute) Elevated C-reactive protein (CRP) (Acute) - VTE Risk Labs: VTE Related Lab Results Hgb 11.6 g/dL (14.1-18.0) L 05/04/20 10:25 Hct 35.7 % (42.0-52.0) L 05/04/20 10:25 Plt Count 179 K/mm3 (142-424) 05/04/20 10:25 BUN 25 mg/dl (9-20) H 05/04/20 10:25 Creatinine 1.50 mg/dl (0.66-1.25) H 05/04/20 10:25 Estimated Creat Clear 57 mL/min (50-200) 05/04/20 10:25 - Prophylaxis VTE Prophylaxis Ordered?: Yes Types of VTE Prophylaxis: TEDS Knee High Location of Applied Device: Bilateral Lower Extremeties
[2020-05-04 14:10] LABS: Troponin I < 0.01 ng/ml (0.00-0.034)
--- NOTE | 2020-05-04 15:52 | HMH.HP ---
*Admission Date: 05/04/20 *Chief complaint: Chest and neck pain *History of present illness: Brought in by ambulance for chest pain. He says that starting at about 5 AM he developed a chest pain that increases with deep breath and is worse in certain positions. He describes it as a dull stabbing pain . However denies being short of breath. Has an ache in the back of his neck that feels like he slept on it wrong, also started today. Denies cough. No hemoptysis. He has chronic swelling of both of his legs for the past month or 2 for which he takes hydrochlorothiazide. No unilateral swelling or calf pain. No recent hospitalizations, surgeries, or travel. No recent illness or exposure to illness. No fever. He does not have any known heart problems. He does have hyperlipidemia, hypertension, diabetes, and is a smoker. No history of cardiac testing such as stress test or cardiac cath. States pain has improved since onset. He has no pain right now when not taking a deep breath., He does still have an ache in the back of his neck. Above note per ER presentation. ER work-up included serial enzymes which are negative, EKG which revealed changes consistent with pericarditis. CTA which revealed no evidence of pulmonary embolism but did reveal evidence of focal pneumonia, and patient had good response to Toradol and IV fluids. Presumptive diagnosis of pericarditis has been made, possibly secondary to viral pneumonitis. Plan will be to admit patient with ceftriaxone, azithromycin, echocardiogram in a.m., serial enzymes and ongoing Toradol and dexamethasone therapy. [facility] History I have reviewed the patient's past medical history: Yes Medical History: Reports:: Cancer (Prostate, currently with hormonal therapy), Diabetes Mellitus Type 2 *Have you ever received a pneumonia vaccine?: Yes *Have you received a flu vaccine this season?: Yes Other Surgeries: Yes: Cancer Surgery - *Social History Smoking Status: Light tobacco smoker Tobacco Type: cigarettes # Packs/Day (cigarettes): 1 Alcohol Intake: current Alcohol Intake Frequency:: a few times a week Substance Use Type: marijuana *Occupational Status:: retired Housing: house Household Members: other *Travel in the last 8 weeks: None Family Hx:: No significant family history Review of Systems - Review of Systems Review of systems:: pertinent systems reviewed and negative unless documented below Patient reports that he feels better, neck pain is still present but almost gone. Chest pain is worse with position changes but he is comfortable lying flat. Denies GI symptoms, symptoms are at baseline. No musculoskeletal symptoms, edema or cramping. Otherwise review of systems negative except noted in HPI Meds Home Medications Medication Instructions Recorded Confirmed Type Abiraterone Acetate [Zytiga] 1,000 mg PO DAILY 05/04/20 05/04/20 History Bisoprolol Fumarate [Bisoprolol 5 mg PO DAILY 05/04/20 05/04/20 History 5mg Tablet] Esomeprazole Magnesium 40 mg PO BID 05/04/20 05/04/20 History Ezetimibe 10 mg PO DAILY 05/04/20 05/04/20 History Fexofenadine/Pseudoephedrine 1 each PO DAILY 05/04/20 05/04/20 History [Alma-D 24 Hour Tablet] Insulin Aspart Prot/Insuln Asp 45 unit SQ BID 05/04/20 05/04/20 History [Novolog Mix 70-30 Vial] Insulin Glargine,Hum.rec.anlog 80 unit SQ DAILY 05/04/20 05/04/20 History [Lantus] Losartan Potassium 100 mg PO DAILY 05/04/20 05/04/20 History Rosuvastatin Calcium 40 mg PO HS 05/04/20 05/04/20 History Umeclidinium Brm/Vilanterol Tr 1 puff IH DAILY 05/04/20 05/04/20 History [Anoro Ellipta 62.5-25 Mcg INH] hydroCHLOROthiazide [HCTZ 25mg 50 mg PO BID 05/04/20 05/04/20 History tab] predniSONE [Prednisone 5mg 5 mg PO BID 05/04/20 05/04/20 History Tab] Allergies Allergy/AdvReac Type Severity Reaction Status Date / Time No Known Allergies Allergy Unverified 05/04/20 14:48 Exam Vital signs and Labs for Last
[2020-05-04 16:23] LABS: Adenovirus,PCR Not Detected (NotDetected); Bordetella Pertussis Not Detected (NotDetected); Chlamydophila Pneumoniae, PCR Not Detected (NotDetected); Coronavirus 229E Not Detected (NotDetected); Coronavirus NL63 Not Detected (NotDetected); Coronavirus OC43 Not Detected (NotDetected); Coronovirus HKU1,PCR Not Detected (NotDetected); Human Metapneumovirus Not Detected (NotDetected); Influenza A, PCR Not Detected (NotDetected); Influenza AH1, 2009 Not Detected (NotDetected); Influenza AH1, PCR Not Detected (NotDetected); Influenza AH3,PCR Not Detected (NotDetected); Influenza B, PCR Not Detected (NotDetected); Mycoplasma Pneumoniae, PCR Not Detected (NotDetected); Parainfluenza 1, PCR Not Detected (NotDetected); Parainfluenza 2, PCR Not Detected (NotDetected); Parainfluenza 3, PCR Not Detected (NotDetected); Parainfluenza 4, PCR Not Detected (NotDetected); Respiratory Syncytial Virus Not Detected (NotDetected); Rhinovirus/Enterovirus Not Detected (NotDetected)
[2020-05-04 16:36] LABS: POC Glucose,Bedside 166 (70-110)
--- NOTE | 2020-05-04 17:21 | ECG_ITS ---
APPROVED REPORT Exam: Resting ECG HR:69 bpm ECG Measurements Heart Rate 69 AXES MA 206 P 43 QRSd 104 QRS 7 QT 396 T 32 QTc 424 Conclusion Sinus rhythm with premature atrial complexes ST elevation, consider inferolateral injury or acute infarct ACUTE CA Abnormal ECG Electronically signed by : Roland Dasilva, 05/05/2020 06:29:08
--- NOTE | 2020-05-04 17:22 | ECG_ITS ---
APPROVED REPORT Exam: Resting ECG HR:67 bpm ECG Measurements Heart Rate 67 AXES GA 206 P 34 QRSd 106 QRS 8 QT 400 T 33 QTc 422 Conclusion Normal sinus rhythm with sinus arrhythmia Acute pericarditis Abnormal ECG Electronically signed by : Roland Dasilva, 05/05/2020 06:28:59
[2020-05-04 17:47] LABS: Troponin I < 0.01 ng/ml (0.00-0.034)
--- NOTE | 2020-05-04 20:01 | PC.NURSE ---
Pt alert and oriented and able to make needs known. New admit to floor today. Pt did state that he takes an injection of lupron q 3 months and his last dose was mar, but is unaware of dosage. Pt also had some st elevation on tele, EKG's done and MD in ED read and came to floor and talked with Dr. Godinez and ruled the st elevation to be from pericarditis, in which one ekg did read as well. Pt stated that pain is with breathing and that it is better than when he came to ED. MD was at bedside at 1715, and another EKG was at 1720, then 1722. BP 111/50,70hr,93 % RA, and 20 RR. Pt non diaphoretic. CB in reach and meds locked in drawer. Report given.
--- NOTE | 2020-05-04 20:17 | PC.NURSE ---
Did clip groin and wrists r/t possible heart cath.
[2020-05-04 22:33] LABS: POC Glucose,Bedside 397 (70-110)
[2020-05-05] VITALS: BP 121/67; PULSE 62; PULSE 70; RESP 16; TEMP 36.8; O2SAT 94
[2020-05-05 03:39] VITALS: BP 105/55; PULSE 68; RESP 18; TEMP 36.6; O2SAT 94
[2020-05-05 04:00] VITALS: PULSE 60
--- NOTE | 2020-05-05 04:44 | PC.NURSE ---
Addendum entered by Jacqueline Mir RN 05/05/20 06:06: Pt refused nighttime meds, said they would keep him awake. Pt was argumentative about taking 2100 insulin dosage, teaching given regarding reason for SSI order. This AM, he asked why he didnt receive his PM meds, this RN explained he refused them, he stated he remembered the conversation . Original Note: Pt A&O x4, has slept well through the night. No c/o pain or discomfort. Tele notes ST elevation, previously notified. Pt on CPAP through the night, sats in the mid 90s. NPO since midnight for heart cath in the AM. Physical assessment unremarkable. VSS, call light in reach, no concerns at this time.
[2020-05-05 05:00] VITALS: BMI 31.4
[2020-05-05 05:26] LABS: POC Glucose,Bedside 302 (70-110)
--- NOTE | 2020-05-05 06:01 | PC.NURSE ---
Stefani MATTHEWS NOTIFIED OF CONSULT.
[2020-05-05 06:50] LABS: Basophils % 0.1 % (0.1-2.0); Eosinophils % 0.1 % (0.1-12.0); Hematocrit 32.8 % (42.0-52.0); Hemoglobin 10.6 g/dL (14.1-18.0); Lymphocytes % 9.4 % (10-50); Mean Corpuscular HGB Conc 32.4 g/dL (31.8-35.4); Mean Corpuscular Hemoglobin 32.5 pg (27.0-31.2); Mean Corpuscular Volume 100.3 fl (80-94); Mean Platelet Volume 8.7 fl (7.4-10.4); Monocytes # 0.6 K/mm3 (0.1-1.0); Monocytes % 5.6 % (1.7-9.3); Neutrophils # 9.1 K/mm3 (1.8-7.8); Neutrophils % 84.7 % (37.0-80.0); Platelet Count 159 K/mm3 (142-424); Red Blood Count 3.27 M/mm3 (4.60-6.20); White Blood Count 10.7 K/mm3 (4.8-10.8)
[2020-05-05 06:57] LABS: Chloride 107 mmol/L (98-107); Potassium 4.4 mmoL/L (3.5-5.1); Sodium 139 mmol/L (136-145)
[2020-05-05 07:00] LABS: Anion Gap 10.4 mEq/L (5-15); Blood Urea Nitrogen 31 mg/dl (9-20); Carbon Dioxide 26 mmol/L (22.0-30.0); Creatinine Clearance Estimated 52 mL/min (50-200); Estimated Glomerular Filt Rate 39 ml/min (>60); GFR (African American) 48 ML/MIN (>60)
[2020-05-05 07:01] LABS: Calcium 9.2 mg/dl (8.4-10.2); Glucose 310 mg/dl (74-100)
[2020-05-05 07:36] VITALS: BP 121/56; PULSE 63; RESP 18; TEMP 36.7; O2SAT 93
--- NOTE | 2020-05-05 08:00 | CA_ITS ---
APPROVED REPORT EXAM: Comprehensive 2D, Doppler, and color-flow Echocardiogram Night Supervisor: Vania Gonzalez RT(R) Ht: 5 ft 10 in Wt: 220lbs BSA: 2.17 BP: 127/68 mmHg Indications: CP, smoker, HTN, edema, hyperlipidemia, rule out pericarditis 2D Dimensions LVOT 2.10 cm (M/F) 1.5-2.5 M-Mode Dimensions RVDd 2.33 cm (0.9-2.6) LA Diam 3.92 cm (1.9-4.0) LVDd 5.77 cm (3.5-5.7) Ao Diam 2.77 cm (2.0-3.7) LVDs 3.86 cm (3.5-5.7) IVSd 1.19 cm (0.6-1.1) PWd 1.23 cm (0.6-1.1) EF (Teich) 60.90% FS 33.10% EDV (Teich) 164.60 mL ESV (Teich) 64.30 mL LV Diastology E Decel Time 227.00 (160-240 msec) E/A Ratio 0.8 MED E' 7.80 (< 7 cm/sec) E'/MED E' Ratio 9.08 (>14) LAT E' 9.30 (<10 cm/sec) E/LAT E' Ratio 7.61 (>14) Mitral Valve MV E Max Michael. 71.00 (40-130 cm/s) MV A Velocity 85.00 (40-130 cm/s) E/A Ratio 0.84 MV Decel. Time 227.00 (160-240 ms) MV PHT 66.00 ms Left Ventricle Left atrium is mildly enlarged, left ventricle is normal size, there is mild concentric left ventricular hypertrophy, visually estimated ejection fraction 55% with no obvious regional wall motion abnormality, endocardial surfaces are poorly visualized, grade 1 diastolic dysfunction seen without tissue Doppler evidence of raise left atrial pressure. Right Ventricle Right atrium and right ventricle are normal size and contractility. Aortic Valve Aortic valve is minimally thickened and fibrosed, there is no aortic stenosis or aortic insufficiency. Mitral Valve Mitral valve leaflets are minimally thickened, there is mild mitral regurgitation. Tricuspid Valve Tricuspid valve grossly normal, there is trace tricuspid regurgitation. Pulmonic Valve Pulmonic valve is poorly visualized. Great Vessels Aortic root is normal size. Pericardium No significant pericardial effusion noted. Conclusion 1. Mildly enlarged left atrium, normal left ventricular size, mild concentric left ventricular hypertrophy, visually estimated ejection fraction 55% with no regional wall motion abnormality, grade 1 diastolic dysfunction seen without tissue Doppler evidence of raise left atrial pressure. 2. Mild mitral and tricuspid regurgitation. 3. No significant pericardial effusion noted. Electronically signed by : Ld Castro, 05/05/2020 20:50:14
[2020-05-05 08:10] VITALS: PULSE 60
--- NOTE | 2020-05-05 08:30 | ECG_ITS ---
APPROVED REPORT Exam: Resting ECG HR:61 bpm ECG Measurements Heart Rate 61 AXES VT 226 P 54 QRSd 92 QRS 35 QT 416 T 63 QTc 418 Conclusion Sinus rhythm with 1st degree AV block ST elevation, jnanette c/w pericarditis Abnormal ECG Electronically signed by : Roland Dasilva, 05/05/2020 17:40:48
--- NOTE | 2020-05-05 08:40 | HMH.DCSUM ---
General - General Admission date:: 05/04/20 Discharge date: 05/05/20 HPI HPI: Brought in by ambulance for chest pain. He says that starting at about 5 AM he developed a chest pain that increases with deep breath and is worse in certain positions. He describes it as a dull stabbing pain . However denies being short of breath. Has an ache in the back of his neck that feels like he slept on it wrong, also started today. Denies cough. No hemoptysis. He has chronic swelling of both of his legs for the past month or 2 for which he takes hydrochlorothiazide. No unilateral swelling or calf pain. No recent hospitalizations, surgeries, or travel. No recent illness or exposure to illness. No fever. He does not have any known heart problems. He does have hyperlipidemia, hypertension, diabetes, and is a smoker. No history of cardiac testing such as stress test or cardiac cath. States pain has improved since onset. He has no pain right now when not taking a deep breath., He does still have an ache in the back of his neck. Above note per ER presentation. ER work-up included serial enzymes which are negative, EKG which revealed changes consistent with pericarditis. CTA which revealed no evidence of pulmonary embolism but did reveal evidence of focal pneumonia, and patient had good response to Toradol and IV fluids. Presumptive diagnosis of pericarditis has been made, possibly secondary to viral pneumonitis. Plan will be to admit patient with ceftriaxone, azithromycin, echocardiogram in a.m., serial enzymes and ongoing Toradol and dexamethasone therapy. Hospital Course Hospital Course: Patient was admitted overnight, ruled out for myocardial infarction by enzyme criteria, EKGs did not change, showed mild diffuse ST elevation consistent with pericarditis. Cardiology was consulted, felt that patient's symptom complex was very consistent with pericarditis and did not recommend intervention at this time, echocardiogram was read as essentially normal preliminarily. This morning the patient feels much better, chest pain symptoms have resolved. Patient will be discharged home with short-term dexamethasone on top of his baseline prednisone. Antibiotics for his pneumonia, aspirin, and instructions to increase his 70/30 insulin dosing to 55 units twice daily for the next for 5 days given his higher dose of glucocorticoids. I will see him in my office on , cardiology appointment the next 3 or 4 weeks to reevaluate cardiac risk factors. Given his cancer pain, pericarditis and neck pain I will give him a short-term, 3-day prescription of hydrocodone. Objective Vital signs: Temp Pulse Resp BP Pulse Ox 98.0 F 63 18 121/56 L 93 L 05/05/20 07:36 05/05/20 07:36 05/05/20 07:36 05/05/20 07:36 05/05/20 07:36 no acute distress - *Routine HEENT Exam Head: Present: normocephalic Eye: Present: EOMI, PERRL ENT: Present: mucous membranes moist - *Routine Neck Exam Present: supple - *Routine Respiratory Exam Present: CTA bilaterally - *Routine Cardiovascular Exam Present: RRR - *Routine Abdominal Exam Present: soft, normoactive bowel sounds. Absent: tenderness - *Routine Extremities Exam Absent: cyanosis, clubbing, edema - *Routine Skin Exam Present: warm. Absent: rash - Detailed Eye Exam Eyelids: Bilateral normal inspection Results Labs on day of discharge: Labs from last 24 hours 05/05/20 05/05/20 05/05/20 05:16 05:16 05:16 WBC 10.7 RBC 3.27 L Hgb 10.6 L Hct 32.8 L MCV 100.3 H MCH 32.5 H MCHC 32.4 RDW 16.0 Plt Count 159 MPV 8.7 Neut % (Auto) 84.7 H Lymph % (Auto) 9.4 L [place] % (Auto) 5.6 Eos % (Auto) 0.1 Baso % (Auto) 0.1 Neut # (Auto) 9.1 H Lymph # (Auto) 1.0 [place] # (Auto) 0.6 Eos # (Auto) 0.0 Baso # (Auto) 0.0 ESR Sodium 139 Potassium 4.4 D Chloride 107 Carbon Dioxide 26 Anion Gap 10.4 BU
--- NOTE | 2020-05-05 09:33 | HMH.CNCARD ---
History of Present Illness Consult date: 05/05/20 Requesting physician: Roland Dasilva Consult reason: chest pain Chief complaint: chest pain Additional Medical History:: 1. Hypertension, treated for about 8 years 2. Hyperlipidemia, treated for about 8 years 3. Tobacco use, describes it as socially with drinking beer but admits to using about a pack every 2 weeks. 4. Diabetes mellitus, treated for about 2 years, insulin requiring 5. Family history of coronary artery disease, father at age 69 from an ME. 6. Prostate cancer, currently on hormonal therapy History of present illness: Brought in by ambulance for chest pain. He says that starting at about 5 AM he developed a chest pain that increases with deep breath and is worse in certain positions. He describes it as a dull stabbing pain . However denies being short of breath. Has an ache in the back of his neck that feels like he slept on it wrong, also started today. Denies cough. No hemoptysis. He has chronic swelling of both of his legs for the past month or 2 for which he takes hydrochlorothiazide. No unilateral swelling or calf pain. No recent hospitalizations, surgeries, or travel. No recent illness or exposure to illness. No fever. He does not have any known heart problems. He does have hyperlipidemia, hypertension, diabetes, and is a smoker. No history of cardiac testing such as stress test or cardiac cath. States pain has improved since onset. He has no pain right now when not taking a deep breath., He does still have an ache in the back of his neck. Above note per ER presentation. ER work-up included serial enzymes which are negative, EKG which revealed changes consistent with pericarditis. CTA which revealed no evidence of pulmonary embolism but did reveal evidence of focal pneumonia, and patient had good response to Toradol and IV fluids. Presumptive diagnosis of pericarditis has been made, possibly secondary to viral pneumonitis. Plan will be to admit patient with ceftriaxone, azithromycin, echocardiogram in a.m., serial enzymes and ongoing Toradol and dexamethasone therapy. The above per Dr. Dasilva Patient confirms the sudden acute onset of symptoms with no prior exertional chest discomfort or shortness of breath. He relates his father at age 69 from a myocardial infarction. His troponins have returned normal overnight. EKG does show diffuse ST elevation indicative of pericarditis. The CT of the chest and preliminary echocardiogram revealed no evidence of pericardial effusion. Patient symptoms have entirely resolved this morning. [facility] History Medical History: Reports:: Cancer (Prostate, currently with hormonal therapy), Diabetes Mellitus Type 2 *Have you ever received a pneumonia vaccine?: Yes *Have you received a flu vaccine this season?: Yes Other Surgeries: Yes: Cancer Surgery - *Social History Smoking Status: Light tobacco smoker Tobacco Type: cigarettes # Packs/Day (cigarettes): 1 Alcohol Intake: current Alcohol Intake Frequency:: a few times a week Substance Use Type: marijuana *Occupational Status:: retired Housing: house Household Members: other *Travel in the last 8 weeks: None Family Hx:: No significant family history Meds Home Medications Medication Instructions Recorded Confirmed Type Abiraterone Acetate [Zytiga] 1,000 mg PO DAILY 05/04/20 05/04/20 History Bisoprolol Fumarate [Bisoprolol 5 mg PO DAILY 05/04/20 05/04/20 History 5mg Tablet] Esomeprazole Magnesium 40 mg PO BID 05/04/20 05/04/20 History Ezetimibe 10 mg PO DAILY 05/04/20 05/04/20 History Fexofenadine/Pseudoephedrine 1 each PO DAILY 05/04/20 05/04/20 History [Alma-D 24 Hour Tablet] Insulin Aspart Prot/Insuln Asp 45 unit SQ BID 05/04/20 05/04/20 History [Novolog Mix 70-30 Vial] Insulin Glargine,Hum.rec.anlog 80 unit SQ DAILY 05/04/20 05/04/20 History [Lantus] Losartan Potassium 100 mg PO DAILY 05/04/20 05/04/20 History Rosuvastatin Calcium 40 m
== END 2020-05-05 11:00 | disposition home or self-care (01) ==
LOC: ER 11:51 → 2ND 12:09
PROVIDERS: Admitting Provider Internal Medicine Adolescent Medicine; Emergency Provider Emergency Medicine; PCP Internal Medicine Adolescent Medicine; Visit Provider Internal Medicine Adolescent Medicine
DX: J18.1 Lobar pneumonia, unspecified organism (principal); I30.9 Acute pericarditis, unspecified; E11.9 Type 2 diabetes mellitus without complications; Z79.4 Long term (current) use of insulin; I10 Essential (primary) hypertension; Z72.0 Tobacco use; Z79.51 Long term (current) use of inhaled steroids; Z79.899 Other long term (current) drug therapy; C61 Malignant neoplasm of prostate
CPT/HCPCS: 36415; 71045; 71275; 80048; 82962; 83605; 84484; 85025; 85651; 86140; 87040; 87486; 87581; 87633; 87798; 93005; 93306; 96365; 96375; 96376; 99285; G0378; J0456; J2405; Q9967

== ENCOUNTER → 2020-07-22 13:10 | Outpatient (CLI) | payer MEDICARE, SELFPAY ==
[2020-07-22 13:55] LABS: Hemoglobin A1C 8.8 % (4.0-6.0)
[2020-07-22 14:49] LABS: Coronavirus 19 IgG Antibody Positive (Negative); Coronavirus 19 IgM Antibody Negative (Negative)
[2020-07-22 15:05] LABS: Alanine Aminotransferase 29 U/L (12-78); Aspartate Amino Transferase 34 U/L (17-59); Blood Urea Nitrogen 26 mg/dl (9-20); Estimated Glomerular Filt Rate 59 ml/min (>60); GFR (African American) 71 ML/MIN (>60)
[2020-07-22 15:06] LABS: Albumin Level 4.6 g/dl (3.5-5.0); Albumin/Globulin Ratio 1.8 (1.1-1.8); Alkaline Phosphatase 51 U/L (38-126); Bilirubin,Total 0.8 mg/dl (0.2-1.3); Calcium 9.7 mg/dl (8.4-10.2); Carbon Dioxide 24 mmol/L (22.0-30.0); Chol/HDL Ratio 3.4 (1-3.5); Cholesterol 193 mg/dl (140-200); Globulin 2.6 g/dL (1.3-3.2); Glucose 132 mg/dl (74-100); HDL Cholesterol 56 mg/dl (40-60); Total Protein,Serum 7.2 g/dl (6.3-8.2); Triglycerides 252 mg/dl (30-150); VLDL Cholesterol 50 mg/dL (0-40)
[2020-07-22 15:26] LABS: Chloride 105 mmol/L (98-107); Sodium 140 mmol/L (136-145)
[2020-07-22 15:27] LABS: Anion Gap 15.7 mEq/L (5-15); Potassium 4.7 mmoL/L (3.5-5.1)
== END ==
PROVIDERS: Visit Provider Internal Medicine Adolescent Medicine
DX: Z20.822 Contact with and (suspected) exposure to COVID-19 (principal); E11.9 Type 2 diabetes mellitus without complications; E78.5 Hyperlipidemia, unspecified; Z79.4 Long term (current) use of insulin
CPT/HCPCS: 36415; 80053; 80061; 83036; 86328

== ENCOUNTER → 2021-02-10 08:58 | Outpatient (CLI) | payer MEDICARE, SELFPAY ==
--- NOTE | 2021-02-10 09:02 | NM_ITS ---
PROCEDURE: NM BONE SCAN WHOLE BODY CLINICAL INDICATION: MALIGNANT NEOPLASM OF PROSTATE COMPARISON: NM NM BONE SCAN WHOLE BODY from 03/05/2019 NM NM BONE SCAN WHOLE BODY from 02/27/[address] ABDOMEN PELVIS W CON from 02/29/[address] ABDOMEN PELVIS W CON from 02/13/[address] CHEST W CON from 02/13/2021 FINDINGS: Dose: 25.3 mCi technetium MDP IV Numerous blastic lesions once again noted on the CT scan of the abdomen pelvis of 02/13/2021. Increased activity noted at the costovertebral junction bilaterally at T11 unchanged. This may actually represent degenerative or posttraumatic changes at this level. Other less apparent foci of increased activity noted at the costo vertebral junction. There is increased activity in the medial aspect of the left acetabulum corresponding to a blastic focus on the CT scan which was not significantly changed. Other blastic foci noted on the CT scan do not show increased activity. There is a new focus of increased activity in the left lower temporal area which could be due to a new blastic focus. CT of the head may confirm. Nonspecific increased activity noted lateral aspect of the left wrist. This is unchanged. Small focus of increased activity present at the sternum at the manubrium/sternal body junction slightly more intense compared to the previous exam. CT scan does not demonstrate a blastic focus at this area. This may be related to arthritic change. IMPRESSION: New focus of increased activity in the left temporal bone region. This does raises suspicion of a new metastatic lesion. CT of the head may confirm. Slight increased activity at the sternal body/manubrial junction without CT correlate. Otherwise stable. Dictated by: Cheo Severino MD 02/16/2021 08:36 Cheo Severino MD in [place] 02/16/2021 08:36
== END ==
PROVIDERS: PCP Internal Medicine Adolescent Medicine; Visit Provider Internal Medicine Medical Oncology
DX: C61 Malignant neoplasm of prostate (principal); C79.51 Secondary malignant neoplasm of bone
CPT/HCPCS: 78306; A9503

== ENCOUNTER → 2021-02-13 09:07 | Outpatient (CLI) | payer MEDICARE, SELFPAY ==
--- NOTE | 2021-02-13 09:22 | CT_ITS ---
PROCEDURE: CT ABDOMEN PELVIS W CON CLINICAL INDICATION: PROSTATE CANCER COMPARISON: CT ABDPELW CT abdomen pelvis w con from 01/24/[address] ABDOMEN PELVIS W CON from 02/29/2020 TECHNIQUE: IV Contrast: 75ML Isovue 370 Oral Contrast None Axial images obtained with sagittal and coronal reformats. All CT scans at the facility use one or more dose reduction, viz: automated exposure control, ma/kV adjustment per patient size (including targeted exams where dose is matched to indication, i.e. head), or iterative reconstruction technique. FINDINGS: There is a small hypodensity in the left lobe of liver segment 4 a measuring 4 mm not significantly changed and may be due to small cyst. Liver is otherwise unremarkable. Gallbladder, spleen adrenal glands pancreas, and kidneys have an unremarkable appearance. No intestinal obstruction or free air. No adenopathy. Unremarkable appendix. Scattered colonic diverticula without diverticulitis. Central prostate calcification. There are small bilateral inguinal hernias containing fat. There is a small blastic focus in the right aspect of the L5 vertebral body at 11 mm not significantly changed. Blastic focus is present in the medial aspect of the left ilium at 18 mm unchanged. IMPRESSION: Overall stable CT appearance of the abdomen and pelvis. Blastic focus is present in the L5 vertebral body in the medial aspect of the left ilium consistent metastatic disease not significantly changed. The Dictated by: Cheo Severino MD 02/14/2021 08:17 Cheo Severino MD in [facility] 02/14/2021 08:17
--- NOTE | 2021-02-13 09:22 | CT_ITS ---
PROCEDURE: CT CHEST W CON CLINCAL INDICATION: PROSTATE CANCER COMPARISON: CT CT ANGIO CHEST from 05/04/2020 TECHNIQUE: IV Contrast: 75ml Isovue 370 Axial images obtained with sagittal and coronal reformats. All CT scans at the facility use one or more dose reduction, viz: automated exposure control, ma/kV adjustment per patient size (including targeted exams where dose is matched to indication, i.e. head), or iterative reconstruction technique. FINDINGS: HEART AND MEDIASTINAL STRUCTURES: No mediastinal or. Coronary artery calcifications. LUNGS AND PLEURAL SPACES: COPD changes are scattered areas honeycombing peripherally with interstitial thickening consistent mild pulmonary fibrosis. No suspicious nodule evident. A subpleural opacity is present in the left upper lobe image 24 series 4 measuring 4 mm felt to be related to an area scarring. Follow-up may confirm stability. BONY STRUCTURES: Scattered blastic foci are present including the right 3rd rib anterior laterally, right 8th rib posterior laterally, T6 superiorly, T7 inferiorly, T8 posteriorly and on the right consistent with metastatic disease. IMPRESSION: 1. Scattered blastic lesions of the ribs and spine consistent with metastatic disease. 2. COPD with pulmonary fibrosis. There is a new small subpleural opacity in the left upper lobe felt to be related to an area of scarring. Follow-up suggested to confirm stability. Dictated by: Cheo Severino MD 02/14/2021 08:09 Cheo Severino MD in [place] 02/14/2021 08:09
[2021-02-13 09:44] LABS: Chloride 106 mmol/L (98-107); Potassium 4.3 mmoL/L (3.5-5.1); Sodium 142 mmol/L (136-145)
[2021-02-13 09:46] LABS: Alanine Aminotransferase 22 U/L (12-78); Aspartate Amino Transferase 36 U/L (17-59); Blood Urea Nitrogen 32 mg/dl (9-20); Estimated Glomerular Filt Rate 42 ml/min (>60); GFR (African American) 51 ML/MIN (>60)
[2021-02-13 09:47] LABS: Albumin Level 4.2 g/dl (3.5-5.0); Albumin/Globulin Ratio 1.4 (1.1-1.8); Alkaline Phosphatase 64 U/L (38-126); Anion Gap 15.3 mEq/L (5-15); Bilirubin,Total 0.4 mg/dl (0.2-1.3); Calcium 9.6 mg/dl (8.4-10.2); Carbon Dioxide 25 mmol/L (22.0-30.0); Glucose 115 mg/dl (74-100); Total Protein,Serum 7.2 g/dl (6.3-8.2)
== END ==
PROVIDERS: PCP Internal Medicine Adolescent Medicine; Visit Provider Internal Medicine Medical Oncology
DX: C61 Malignant neoplasm of prostate (principal); C79.51 Secondary malignant neoplasm of bone
CPT/HCPCS: 36415; 71260; 74177; 80053; Q9967

== ENCOUNTER → 2021-02-23 11:58 | Outpatient (CLI) | payer MEDICARE, SELFPAY ==
[2021-02-23 13:05] LABS: Cholesterol 200 mg/dl (140-200); HDL Cholesterol 67 mg/dl (40-60); Triglycerides 174 mg/dl (30-150); VLDL Cholesterol 35 mg/dL (0-40)
[2021-02-23 13:16] LABS: Direct LDL Cholesterol 100.41 mg/dL (100-129)
[2021-02-23 13:31] LABS: Hemoglobin A1C 7.5 % (4.0-6.0)
[2021-02-23 13:39] LABS: Prostate Specific Ag, Diagnost < 0.064 ng/ml (0.0-4.0)
== END ==
PROVIDERS: Internal Medicine Medical Oncology; Visit Provider Internal Medicine Adolescent Medicine
DX: E11.9 Type 2 diabetes mellitus without complications (principal); E78.5 Hyperlipidemia, unspecified; C61 Malignant neoplasm of prostate; Z79.4 Long term (current) use of insulin
CPT/HCPCS: 36415; 80061; 83036; 84153

== ENCOUNTER → 2021-05-18 08:45 | Outpatient (CLI) | payer MEDICARE, SELFPAY ==
--- NOTE | 2021-05-18 08:49 | NM_ITS ---
FINAL REPORT TECHNIQUE: The patient was injected with 26.7 mCi of technetium 99 M MDP. Three-hour delayed images were obtained. CLINICAL HISTORY: PROSTATE CA, METASTATIC 9:00AM 26.7 MCI TC MDP F/U FROM BONE SCAN 02-08 COMPARISON: 04/12/2020 FINDINGS: There is stable mild increased tracer activity in the shoulders, knees, ankles and lower thoracic spine which are likely degenerative. There is stable increased tracer activity at the sternomanubrial junction which is nonspecific. There is stable increased tracer activity in the region of the mastoid portion of the left temporal bone of uncertain etiology. No new abnormality is seen. IMPRESSION: Stable increased tracer activity in the region of the mastoid portion of the left temporal bone of uncertain etiology. This could be further evaluated with temporal bone CT. No new abnormality is seen. Reviewed, Interpreted and Dictated by Shay Soto III, MD Transcribed by Alicia Dove Authenticated by Shay Soto III, MD on 05/18/2021 03:25:42 PM [facility]
== END ==
PROVIDERS: PCP Internal Medicine Adolescent Medicine; Visit Provider Internal Medicine Medical Oncology
DX: C61 Malignant neoplasm of prostate (principal); C79.51 Secondary malignant neoplasm of bone
CPT/HCPCS: 78306; A9503

== ENCOUNTER → 2021-10-27 08:48 | Outpatient (CLI) | payer MEDICARE, SELFPAY ==
--- NOTE | 2021-10-27 08:52 | NM_ITS ---
FINAL REPORT CLINICAL HISTORY: PROSTATE CANCER 9:00am 25.5 mci tc mdp COMPARISON: 05/18/2021 FINDINGS: Multiple projection images of the axial appendicular skeleton were obtained after the intravenous injection of 2.25 mCi technetium 99 MDP. The is mild increased tracer activity in the region of the bilateral mastoid portions of the temporal bones of uncertain significance, could be related to mastoiditis. There is mild increased tracer activity in the shoulders, knees, ankles, and spine that is visually stable and felt to be related to degenerative change. No new abnormality is identified. IMPRESSION: Persistent increased tracer activity in the bilateral mastoid air cells of the temporal bones. If indicated, temporal bone CT may be helpful. Stable bones scan without convincing evidence of bony metastatic disease. Reviewed, Interpreted and Dictated by Shay Soto III, MD Transcribed by Carrol Cormier Authenticated and [facility]
--- NOTE | 2021-10-27 13:15 | HMH.ITSHM ---
Current Home Medications as stated by this patient Brant Alvarado or indirect sales representative. []HCTZ DECARDRON ANORO ROSUVASTATIN INSULIN LOSARTAN HYDROCODONE DOLORES EZETIMIBE ESOMEPRAZOLE BISOPROLOL ASA ZYTIGA
[2021-10-27 14:47] LABS: Blood Urea Nitrogen 40 mg/dl (9-20); Estimated Glomerular Filt Rate 49 ml/min (>60); GFR (African American) 59 ML/MIN (>60)
== END ==
PROVIDERS: PCP Internal Medicine Adolescent Medicine; Visit Provider Internal Medicine Medical Oncology
DX: C61 Malignant neoplasm of prostate (principal); C79.51 Secondary malignant neoplasm of bone
CPT/HCPCS: 36415; 78306; 82565; 84520; A9503

== ENCOUNTER → 2021-10-28 07:46 | Outpatient (CLI) | payer MEDICARE, SELFPAY ==
--- NOTE | 2021-10-28 07:51 | CT_ITS ---
FINAL REPORT TECHNIQUE: After the administration of oral and intravenous contrast, axial images were obtained through the abdomen and pelvis by computed tomography. The study was performed with techniques to keep radiation dose as low as reasonably achievable, (ALARA). Individual dose reduction techniques using automated exposure control or adjustment of mA and/or kV according to the patient's size were employed. CLINICAL HISTORY: PROSTATE CANCER COMPARISON: 02/13/2021 FINDINGS: Abdomen: There is mild scarring in the lung bases. There is a stable less than 1 cm low-attenuation focus in the medial segment of the left hepatic lobe, may represent a small cyst. Note is made of moderate vascular calcification. The spleen is unremarkable. The adrenals are normal. The pancreas is unremarkable. The kidneys enhance appropriately. The aorta is normal in caliber. There is no free fluid or adenopathy. Pelvis: The appendix is unremarkable. There is sigmoid diverticulosis. There are bilateral inguinal hernias containing fat, left greater than right. There are sclerotic foci in the T8 vertebral body, L5 vertebral body, 2 areas in the left iliac bone, the midline sacrum, right superior pubic ramus and left acetabulum consistent with bony metastatic disease. These foci have visually not significantly changed. There are bilateral L5 pars defects. The urinary bladder is unremarkable. There is no free fluid or adenopathy. IMPRESSION: Findings consistent with bony metastatic disease, stable from previous. Reviewed, Interpreted and Dictated by Shay Soto III, MD Transcribed by Carrol Cormier Authenticated and [facility]
== END ==
PROVIDERS: PCP Internal Medicine Adolescent Medicine; Visit Provider Internal Medicine Medical Oncology
DX: C61 Malignant neoplasm of prostate (principal); C79.51 Secondary malignant neoplasm of bone
CPT/HCPCS: 74177; Q9967

== ENCOUNTER → 2022-04-16 14:59 | Outpatient (CLI) | payer MEDICARE, SELFPAY ==
[2022-04-16 16:16] LABS: Hemoglobin A1C 8.4 % (4.0-6.0)
[2022-04-16 16:23] LABS: Alanine Aminotransferase 25 U/L (12-78); Albumin Level 4.2 g/dl (3.5-5.0); Albumin/Globulin Ratio 1.6 (1.1-1.8); Alkaline Phosphatase 65 U/L (38-126); Anion Gap 13.5 mEq/L (5-15); Aspartate Amino Transferase 25 U/L (17-59); Bilirubin,Total 0.5 mg/dl (0.2-1.3); Blood Urea Nitrogen 36 mg/dl (9-20); Calcium 8.8 mg/dl (8.4-10.2); Carbon Dioxide 25 mmol/L (22.0-30.0); Chloride 106 mmol/L (98-107); Estimated Glomerular Filt Rate 45 ml/min (>60); GFR (African American) 55 ML/MIN (>60); Globulin 2.6 g/dL (1.3-3.2); Glucose 324 mg/dl (74-100); Potassium 4.5 mmoL/L (3.5-5.1); Sodium 140 mmol/L (136-145); Total Protein,Serum 6.8 g/dl (6.3-8.2)
== END ==
PROVIDERS: PCP Internal Medicine Adolescent Medicine; Visit Provider Internal Medicine Hematology & Oncology
DX: E11.9 Type 2 diabetes mellitus without complications (principal); C61 Malignant neoplasm of prostate; Z79.4 Long term (current) use of insulin
CPT/HCPCS: 36415; 80053; 83036

== ENCOUNTER → 2022-04-20 09:06 | Outpatient (CLI) | payer MEDICARE, SELFPAY ==
--- NOTE | 2022-04-20 09:11 | NM_ITS ---
FINAL REPORT CLINICAL HISTORY: NEOPLASM OF PROSTATE 9:20am 25.4 mci tc mdp FINDINGS: EXISTING RELEVANT IMAGING STUDIES: CT chest from and whole body bone scan January 2021 TECHNIQUE: The patient was injected with 25.4 mCi of technetium 99-MDP. 3 hour delayed images were obtained. FINDINGS: There is persistent increased tracer activity in the mastoid bones bilaterally of uncertain significance that may be postinflammatory. There is increased tracer activity in the sternomanubrial joint favored to be degenerative. There is increased tracer activity in the shoulders, knees, and ankles consistent with degenerative change. No new tracer activity is identified to suggest occult fracture or metastatic disease. IMPRESSION: No findings to indicate metastatic bone disease. Reviewed, Interpreted and Dictated by Shay Soto III, MD Transcribed by Lino Camarena Authenticated and . [facility]
--- NOTE | 2022-04-20 09:26 | HMH.ITSHM ---
Current Home Medications as stated by this patient Brant Alvarado or auto claim representative. []UMECLIDINIUM ROSUVASTATIN PREDNISONE LOSARTAN INSULIN HYDROCODONE HCTZ FEXOFENADINE EZETIMIBE ESOMEPRAZOLE DEXAMETHASONE BISOPROLOL ASA ABIRATERONE
== END ==
PROVIDERS: PCP Internal Medicine Adolescent Medicine; Visit Provider Internal Medicine Medical Oncology
DX: C61 Malignant neoplasm of prostate (principal)
CPT/HCPCS: 78306; A9503

== ENCOUNTER → 2022-04-23 08:49 | Outpatient (CLI) | payer MEDICARE, SELFPAY ==
--- NOTE | 2022-04-23 08:53 | CT_ITS ---
FINAL REPORT TECHNIQUE: Postcontrast axial images through the abdomen and pelvis were performed. This study was performed with techniques to keep radiation doses as low as reasonably achievable, (ALARA). Individualized dose reduction techniques using automated exposure control or adjustment of mA and/or kV according to the patient's size were employed. CLINICAL HISTORY: MALIGNANT NEOPLASM OF PROSTATE COMPARISON: 10/28/2021 FINDINGS: Abdomen: The lung bases are clear. The liver is normal in size and attenuation. The spleen is unremarkable. The adrenals are normal. The pancreas is unremarkable. The kidneys enhance appropriately. The aorta is normal in caliber. No free fluid or adenopathy is identified. No findings for mechanical bowel obstruction are identified. There is moderate vascular calcification. Pelvis: The appendix is normal. There is sigmoid diverticulosis without evidence of diverticulitis. Several prostate calcifications are identified. There are bilateral inguinal hernias containing fat, larger on the left. There are multiple sclerotic foci involving L5 and the pelvis consistent with bony metastatic disease. Findings are stable since the prior. Again identified is L5 pars defects. The urinary bladder is unremarkable. No free fluid, free air, abscess or adenopathy is identified. IMPRESSION: Findings consistent with bony metastatic disease, stable since prior. Reviewed, Interpreted and Dictated by Shay Soto III, MD Transcribed by Carrol Cormier Authenticated and [facility]
--- NOTE | 2022-04-23 08:54 | CT_ITS ---
FINAL REPORT CLINICAL HISTORY: MALIGNANT NEOPLASM OF PROSTATE COMPARISON: 02/13/2021 FINDINGS: Axial CT images of the chest were obtained with contrast. Coronal reformatted images were also obtained. This study was performed with techniques to keep radiation doses as low as reasonably achievable, (ALARA). Individualized dose reduction techniques using automated exposure control or adjustment of mA and/or KV according to the patient's size were employed. There is no evidence of mediastinal or hilar mass or adenopathy. No axillary mass or adenopathy is identified. On lung window images, no pulmonary mass or dominant pulmonary nodule is identified. No localized pulmonary inflammatory process is identified. Limited images of the upper abdomen reveal no mass or localized inflammatory process. Note is made of mild scarring, stable. Again identified are scattered sclerotic areas consistent with bony metastatic disease. Findings are stable since the prior. IMPRESSION: Bony metastatic disease, stable since prior. Reviewed, Interpreted and Dictated by Shay Soto III, MD Transcribed by Carrol Cormier Authenticated and [facility]
== END ==
PROVIDERS: PCP Internal Medicine Adolescent Medicine; Visit Provider Internal Medicine Medical Oncology
DX: C61 Malignant neoplasm of prostate (principal)
CPT/HCPCS: 71260; 74177; Q9967

== ENCOUNTER 2023-03-28 08:29 | Outpatient (CLI) | payer MEDICARE, SELFPAY ==
[2023-03-28 08:59] LABS: Chloride 108 mmol/L (98-107); Potassium 3.8 mmoL/L (3.5-5.1); Sodium 142 mmol/L (136-145)
--- NOTE | 2023-03-28 09:00 | MR_ITS ---
FINAL REPORT CLINICAL HISTORY: MALIGNANT NEOPLASM OF PROSTATE BACK PAIN 19ML PROHANCE FINDINGS: Multiplanar MR imaging of the lumbar spine was performed without and with contrast. On the sagittal T2-weighted images, disc degeneration is seen at multiple levels. There is 11 mm of anterolisthesis of L5 on S1. There is no evidence of fracture. The conus is seen at approximately the L1 level and has an unremarkable appearance. L1-2: An annular bulge is present. There is bilateral facet arthropathy. Mild bilateral neural foraminal narrowing is seen. L2-3: An annular bulge is present. There is bilateral facet arthropathy. Moderate bilateral neural foraminal narrowing is seen. L3-4: An annular bulge is present. There is bilateral facet arthropathy. Mild bilateral neural foraminal narrowing is seen. L4-5: An annular bulge is present. There is bilateral facet arthropathy. Moderate bilateral neural foraminal narrowing is seen. L5-S1: An annular bulge is present. There is bilateral facet arthropathy. There are bilateral L5 pars defects with grade 2 anterolisthesis of L5 on S1. Severe bilateral neural foraminal narrowing is seen. No abnormal contrast enhancement is identified. IMPRESSION: Bilateral L5 pars defects with grade 2 anterolisthesis of L5 on S1 and severe bilateral neural foraminal narrowing. Multilevel degenerative disc disease and spondylosis with bilateral neural foraminal narrowing as described. No evidence of bony metastatic disease identified Authenticated and [facility]
[2023-03-28 09:01] LABS: Blood Urea Nitrogen 43 mg/dl (9-20); Estimated Glomerular Filt Rate 42 ml/min (>60); GFR (African American) 51 ML/MIN (>60)
[2023-03-28 09:02] LABS: Alanine Aminotransferase 31 U/L (12-78); Albumin Level 4.2 g/dl (3.5-5.0); Albumin/Globulin Ratio 1.5 (1.1-1.8); Alkaline Phosphatase 50 U/L (38-126); Anion Gap 13.8 mEq/L (5-15); Aspartate Amino Transferase 36 U/L (17-59); Bilirubin,Total 0.7 mg/dl (0.2-1.3); Carbon Dioxide 24 mmol/L (22.0-30.0); Globulin 2.8 g/dL (1.3-3.2); Glucose 86 mg/dl (74-100)
[2023-03-28 09:26] LABS: Uric Acid 4.4 mg/dl (3.5-8.5)
[2023-03-28] MEDS: SODIUM CHLORIDE 0.9% 10ML SYR (RAD ONLY) 10 ML IV (10:02)
[2023-03-28] MEDS: GADOTERIDOL INJ 17ML SYRINGE 19 ML IV (10:02)
== END 2023-03-28 23:59 ==
LOC: RAD 08:31
PROVIDERS: PCP Internal Medicine Adolescent Medicine; Visit Provider Internal Medicine Medical Oncology
DX: C61 Malignant neoplasm of prostate (principal); M54.50 Low back pain, unspecified; M25.50 Pain in unspecified joint
CPT/HCPCS: 36415; 72158; 76376; 80053; 84550; A9576

== ENCOUNTER 2023-04-26 09:34 | Outpatient (CLI) | payer MEDICARE, SELFPAY ==
--- NOTE | 2023-04-26 09:41 | CT_ITS ---
FINAL REPORT CLINICAL HISTORY: PROSTATE CANCER COMPARISON: 05/13/2022 FINDINGS: Axial CT images of the chest were obtained with contrast. Coronal reformatted images were also obtained. This study was performed with techniques to keep radiation doses as low as reasonably achievable, (ALARA). Individualized dose reduction techniques using automated exposure control or adjustment of mA and/or KV according to the patient's size were employed. There is no evidence of mediastinal or hilar mass or adenopathy.No axillary mass or adenopathy is identified. On lung window images, no pulmonary mass or dominant pulmonary nodule is identified. No localized pulmonary inflammatory process is identified. There is mild scarring in the lung bases. There are scattered sclerotic areas including T7, T8, and the right 3rd lateral rib which are visually stable consistent with stable bony metastatic disease. IMPRESSION: Stable bony metastatic disease. Reviewed, Interpreted and Dictated by Shay Soto III, MD Transcribed by Carrol Cormier Authenticated and [facility]
--- NOTE | 2023-04-26 09:41 | CT_ITS ---
FINAL REPORT CLINICAL HISTORY: PROSTATE CANCER FINDINGS: CT OF THE ABDOMEN AND PELVIS WITH CONTRAST Axial CT images of the abdomen and pelvis were obtained after the administration of oral and iv contrast. Coronal reformatted images were also obtained and reviewed.This study was performed with techniques to keep radiation doses as low as reasonably achievable (ALARA). Individualized dose reduction techniques using automated exposure control or adjustment of mA and/or kV according to the patient's size were employed. Abdomen: There is a small cyst in the medial segment of the left hepatic lobe. The spleen is unremarkable. No adrenal mass is present. The pancreas has an unremarkable appearance. The kidneys are normal, without evidence of mass or hydronephrosis. The aorta is normal in caliber. There are moderate vascular calcifications.There is no free fluid or adenopathy. No mass or abnormal fluid collection is seen. Pelvis: The appendix is normal. The urinary bladder is unremarkable. There is sigmoid diverticulosis. There is no bowel obstruction. There is no new mass or adenopathy. There are several sclerotic foci in the bony skeleton including L5 and the bony pelvis. 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 There are pars defects at L5. There are bilateral inguinal hernias containing fat, the largest on the left. IMPRESSION: Stable bony metastatic disease. No new mass or adenopathy. Reviewed, Interpreted and Dictated by Shay Soto III, MD Transcribed by Alicia Dove Authenticated and [facility]
[2023-04-26] MEDS: IOPAMIDOL-370 (76%);100ML BOTTLE 75 ML IV (10:21)
== END 2023-04-26 23:59 ==
LOC: RAD 09:34
PROVIDERS: PCP Internal Medicine Adolescent Medicine; Visit Provider Internal Medicine Medical Oncology
DX: C61 Malignant neoplasm of prostate (principal)
CPT/HCPCS: 71260; 74177; Q9967

== ENCOUNTER 2024-01-25 14:42 | Outpatient (POV) | payer MEDICARE, SELFPAY ==
[2024-01-25 15:21] VITALS: BP 142/67; PULSE 74; RESP 18; O2SAT 94; BMI 31.5
--- NOTE | 2024-01-25 15:41 | EXP.PAIN.OV ---
HPI Data of Consult Patient: new to practice Consult date: 01/25/24 Requesting Physician: Melissa Harper APRN Primary Care Provider: Roland Dasilva MD Consult Narrative Reason for consult: Low back pain, right leg pain, right peripheral neuropathy History of present illness: Mr. Alvarado is a 79 year old male who presents today as a new patient. He is a referral from Dr. Dasilva's office. Today he rates his pain a 5 out of 10. Patient states he has chronic pain throughout his low back with radicular symptoms into his right leg and peripheral neuropathy in his right foot. Patient does state the last 5 to 6 months has been more severe and more consistent. He does state that it is a chronic aching sensation that does interfere with his ability perform activities of daily living such as cooking and cleaning. Patient has tried some conservative measures such as topical cream like lidocaine along with some oral medication such as Tylenol 3, Tylenol and he has been using cannabis Gummies over the last month. He states he does not take these every night and it just really helps him sleep when he does use it and eases down the pain. Patient denies any prior injection history or physical therapy or surgical intervention. Patient is currently managed with gabapentin from an outside provider. He does state that this does seem to help his peripheral neuropathy symptoms. He states he has gotten to where he takes a 300 mg tablet in the morning, two 400 mg tablets at 4 PM and a 300 mg tablet again at bedtime and it does seem to ease down the symptoms and pain. His Ilir has been reviewed and is appropriate. CC: Melissa Harper APRN [facility] Disclaimer: The information contained in this section may have been updated after the patient was seen, as this information can be updated by other users. Medical History (Updated 01/25/24 @ 15:44 by Melissa Harper APRN) Diabetes HLD (hyperlipidemia) GERD (gastroesophageal reflux disease) Cancer HTN (hypertension) Surgical History (Updated 01/25/24 @ 15:26 by Juliane Jim RN) History of cancer surgery Family History (Updated 01/25/24 @ 15:25 by Juliane Jim RN) Other No significant family history Social History (Updated 01/25/24 @ 15:27 by Juliane Jim RN) Smoking Status: Light tobacco smoker tobacco type: cigarettes packs per day: 1 alcohol intake: current alcohol intake frequency: a few times a week substance use type: marijuana current occupational status: retired Travel in the last 8 weeks: None household members: other housing: house Review of Systems Review of Systems Review of systems:: pertinent systems reviewed and negative unless documented below Review of systems (narrative): Review of Systems: General: No recent weight changes, no fever, no sleep disturbances Respiratory: No cough, no shortness of air, no recurring pulmonary infections Cardiovascular/peripheral vascular: No chest pain, no palpitations, no edema, no shortness of breath Gastrointestinal: No new onset incontinence, normal bowel movements reported Genitourinary: No new onset incontinence Musculoskeletal: Low back pain, right leg pain, right peripheral neuropathy Psychiatric: [Normal mood/affect] Neurological: [Denies weakness in extremities], [denies balance issues] Meds Home Medications and Allergies Home Medications ?Medication ?Instructions ?Recorded ?Confirmed ?Type abiraterone 500 mg tablet 1,000 mg PO DAILY CANCER 05/04/20 05/04/20 History bisoprolol fumarate 5 mg tablet 5 mg PO DAILY High blood pressure 05/04/20 05/04/20 History esomeprazole magnesium 40 mg 40 mg PO BID unknown 05/04/20 05/04/20 History capsule,delayed release ezetimibe 10 mg tablet 10 mg PO DAILY Cholesterol 05/04/20 05/04/20 History fexofenadine-pseudoephedrine ER 1 each PO DAILY Allergy symptoms 05/04/20 05/04/20 History 180 mg-240 mg tablet,ext.release 24 hr hydrochlorothiazide 25 mg tablet 50 mg PO BID Edema 05/04/20 05/04/20 History insulin aspar prt-insulin aspart 45 unit SQ BID Diabetes 05/04/20 05/04/20 History 100 unit/mL (70-30) subcutaneous soln insulin glargine 100 unit/mL 80 unit SQ DAILY Diabetes 05/04/20 05/04/20 History subcutaneous solution losartan 100 mg tablet 100 mg PO DAILY High blood pressure 05/04/20 05/04/20 History rosuvastatin 40 mg tablet 40 mg PO HS Cholesterol 05/04/20 05/04/20 History umeclidinium 62.5 mcg-vilanterol 1 puff IH DAILY Breathing problems 05/04/20 05/04/20 History 25 mcg/actuation powdr for inhalation aspirin 81 mg tablet,delayed 81 mg PO DAILY ##90 05/05/20 Rx release azithromycin 250 mg tablet 250 mg PO DIRECTED #6 tabs 05/05/20 Rx cefdinir 300 mg capsule 300 mg PO BID #14 caps 05/05/20 Rx dexamethasone 4 mg tablet 4 mg PO BID 3 days #6 tabs 05/05/20 Rx hydrocodone 7.5 mg-acetaminophen 1 each PO Q6HP PRN CANCER PAIN #15 05/05/20 Rx 325 mg tablet tabs prednisone 5 mg tablet 5 mg PO BID STEROID 05/05/20 05/05/20 History New Prescriptions to Start Prescriptions: Allergies Allergy/AdvReac Type Severity Reaction Status Date / Time amlodipine Allergy Unknown Verified 05/05/20 08:36 Objective Narrative: Physical Exam: General: Alert and oriented x3, no acute distress, pleasant and cooperative Lungs: Respirations even and unlabored, symmetrical chest expansion Eyes: PERRL Musculoskeletal: Flexion and extension of lumbar [spine] somewhat guarded secondary to pain, [antalgic gait noted] Neurological: Speech clear, no gross sensory deficit Additional findings Additional findings: FINAL REPORT CLINICAL HISTORY: MALIGNANT NEOPLASM OF PROSTATE BACK PAIN 19ML PROHANCE FINDINGS: Multiplanar MR imaging of the lumbar spine was performed without and with contrast. On the sagittal T2-weighted images, disc degeneration is seen at multiple levels. There is 11 mm of anterolisthesis of L5 on S1. There is no evidence of fracture. The conus is seen at approximately the L1 level and has an unremarkable appearance. L1-2: An annular bulge is present. There is bilateral facet arthropathy. Mild bilateral neural foraminal narrowing is seen. L2-3: An annular bulge is present. There is bilateral facet arthropathy. Moderate bilateral neural foraminal narrowing is seen. L3-4: An annular bulge is present. There is bilateral facet arthropathy. Mild bilateral neural foraminal narrowing is seen. L4-5: An annular bulge is present. There is bilateral facet arthropathy. Moderate bilateral neural foraminal narrowing is seen. L5-S1: An annular bulge is present. There is bilateral facet arthropathy. There are bilateral L5 pars defects with grade 2 anterolisthesis of L5 on S1. Severe bilateral neural foraminal narrowing is seen. No abnormal contrast enhancement is identified. IMPRESSION: Bilateral L5 pars defects with grade 2 anterolisthesis of L5 on S1 and severe bilateral neural foraminal narrowing. Multilevel degenerative disc disease and spondylosis with bilateral neural foraminal narrowing as described. No evidence of bony metastatic disease identified Authenticated and [facility] Assessment and Plan *Assessment and plan (1) Degenerative disc disease, lumbar: Status: Acute Category: Medical Code(s): M51.369 - Other intervertebral disc degeneration, lumbar region without mention of lumbar back pain or lower extremity pain (2) Lumbar radiculopathy: Status: Acute Category: Medical Code(s): M54.16 - Radiculopathy, lumbar region (3) Peripheral neuropathy: Status: Acute Category: Medical Code(s): G62.9 - Polyneuropathy, unspecified Plan I did discuss with the patient in future I do believe he would benefit from a lumbar epidural at the L5-S1 level. I will order the patient a compounded cream. Patient would like to try the cream before the injection therapy. I did discuss with him that this was no problem whatsoever. Patient was counseled that if he does not get significant relief in the right foot with the lumbar epidural that we can always look at doing nerve blocks around his right foot. We will follow-up with this at future visits. Patient will return to clinic in 1 month for reevaluation of symptoms and plan of care. Patient has been instructed to contact the clinic with any concerns before the next appointment. Dr. Locke has reviewed this note and agrees with this plan of care. This note was dictated using voice recognition software and make contain errors or omissions. All injections are used with Lidocaine or Bupivacaine and Depo Medrol.
== END 2024-01-25 23:59 | disposition home or self-care (01) ==
PROVIDERS: PCP Internal Medicine Adolescent Medicine; Visit Provider Nurse Practitioner Family
DX: G62.9 Polyneuropathy, unspecified; M51.16 Intervertebral disc disorders with radiculopathy, lumbar region; Z73.89 Other problems related to life management difficulty; F17.210 Nicotine dependence, cigarettes, uncomplicated; Z79.899 Other long term (current) drug therapy
CPT/HCPCS: 99202; G0463

== ENCOUNTER 2024-01-30 08:52 | Outpatient (CLI) | payer MEDICARE, SELFPAY ==
--- NOTE | 2024-01-30 | NM_ITS ---
FINAL REPORT CLINICAL HISTORY: F/U PROSTATE CANCER 9:15AM 26.1 MCI TC MDP COMPARISON: 04/20/2022 FINDINGS: EXISTING RELEVANT IMAGING STUDIES: TECHNIQUE: The patient was injected with 26.1 mCi of technetium 99-[id number]. 3 hour delayed images were obtained. FINDINGS: There is mild increased uptake of tracer activity in the bilateral shoulders, knees, and ankles, consistent with changes of degenerative joint disease. No other abnormal tracer activity is identified to suggest occult fracture or metastatic disease. IMPRESSION: No findings to indicate metastatic bone disease. Reviewed, Interpreted and Dictated by Shay Soto III, MD Transcribed by Jeana Nguyen Authenticated and [facility]
[2024-01-30] MEDS: SODIUM CHLORIDE 0.9% 10ML SYR (RAD ONLY) 10 ML IV (09:40)
[2024-01-30] MEDS: ISOTOPE MDP (BONE);1 DOSE VIAL IV (09:40)
== END 2024-01-30 23:59 | disposition home or self-care (01) ==
LOC: RAD 08:52
PROVIDERS: PCP Internal Medicine Adolescent Medicine; Visit Provider Internal Medicine Medical Oncology
DX: C61 Malignant neoplasm of prostate (principal); C79.51 Secondary malignant neoplasm of bone
CPT/HCPCS: 78306; A9503

== ENCOUNTER 2024-02-23 14:39 | Outpatient (POV) | payer MEDICARE, SELFPAY ==
[2024-02-23 15:22] VITALS: BP 107/74; PULSE 84; RESP 16; O2SAT 93; BMI 31.2
--- NOTE | 2024-02-23 15:25 | A.OFFVIS_ITS ---
[facility] Disclaimer: The information contained in this section may have been updated after the patient was seen, as this information can be updated by other users. Medical History (Updated 02/23/24 @ 15:28 by Melissa Harper APRN) Diabetes HLD (hyperlipidemia) GERD (gastroesophageal reflux disease) Cancer HTN (hypertension) Surgical History (Updated 01/25/24 @ 15:26 by Juliane Jim RN) History of cancer surgery Family History (Updated 01/25/24 @ 15:25 by Juliane Jim RN) Other No significant family history Social History (Updated 01/25/24 @ 15:27 by Juliane Jim RN) Smoking Status: Light tobacco smoker tobacco type: cigarettes packs per day: 1 alcohol intake: current alcohol intake frequency: a few times a week substance use type: marijuana current occupational status: other Travel in the last 8 weeks: None household members: other housing: house PM Subjective & Objective Subjective Subjective:: Patient is a pleasant 79-year-old male who presents today for follow-up. Today he does rate his pain a 1 out of 10 while he is seated however does state that the pain will go to at least a 5 or 6 out of 10 when he is up walking. Patient denies any new trauma or injury. He does state that he still has the chronic pain that does go across to his low back and radiates down into his entire right lower extremity. Patient does state that he is still having the neuropathy symptoms in the right foot and that he is still doing his gabapentin where he takes a 300 mg tablet in the morning, two 400 mg tablets at 4 PM and a 300 mg tablet at bedtime. Patient does state from our last visit he has started using his THC Gummies on a regular basis and does half of 1 and it does seem to ease the pain off and allow him to sleep easier. Patient has also continued at home stretching exercise for longer than 12 weeks with no additional changes. Patient does state the pain gets very severe with any type of walking or standing and that it does interfere with his ability perform activities of daily living such as cooking and cleaning. Patient does state that he is very interested in the possible mild procedure and has thought on our last discussion regarding epidural injection and does think he wants to proceed forward with this option. Patient did get the compounded cream and states he has tried it but probably did not use it as much as he should have and did not really notice significant relief. His Ilir has been reviewed and is appropriate. Review of Systems: General: No recent weight changes, no fever, no sleep disturbances Respiratory: No cough, no shortness of air, no recurring pulmonary infections Cardiovascular/peripheral vascular: No chest pain, no palpitations, no edema, no shortness of breath Gastrointestinal: No new onset incontinence, normal bowel movements reported Genitourinary: No new onset incontinence Musculoskeletal: Low back pain, right leg numbness tingling Psychiatric: [Normal mood/affect] Neurological: [Denies weakness in extremities], [denies balance issues] Pain at rest (0-10 scale): 5 Objective Objective:: Physical Exam: General: Alert and oriented x3, no acute distress, pleasant and cooperative Lungs: Respirations even and unlabored, symmetrical chest expansion Eyes: PERRL Musculoskeletal: Flexion and extension of lumbar [spine] somewhat guarded secondary to pain, [antalgic gait noted] positive leg raise Neurological: Speech clear, no gross sensory deficit Has patient had previous pain injection?: No Conservative treatment options previously tried: Home exercise plan Length of treatment: Longer than 12 weeks Meds Home Medications and Allergies Home Medications ?Medication ?Instructions ?Recorded ?Confirmed ?Type abiraterone 500 mg tablet 1,000 mg PO DAILY CANCER 05/04/20 02/23/24 History bisoprolol fumarate 5 mg tablet 5 mg PO DAILY High blood pressure 05/04/20 02/23/24 History esomeprazole magnesium 40 mg 40 mg PO BID unknown 05/04/20 02/23/24 History capsule,delayed release ezetimibe 10 mg tablet 10 mg PO DAILY Cholesterol 05/04/20 02/23/24 History fexofenadine-pseudoephedrine ER 1 each PO DAILY Allergy symptoms 05/04/20 02/23/24 History 180 mg-240 mg tablet,ext.release 24 hr hydrochlorothiazide 25 mg tablet 50 mg PO BID Edema 05/04/20 02/23/24 History insulin aspar prt-insulin aspart 45 unit SQ BID Diabetes 05/04/20 02/23/24 History 100 unit/mL (70-30) subcutaneous soln insulin glargine 100 unit/mL 80 unit SQ DAILY Diabetes 05/04/20 02/23/24 History subcutaneous solution losartan 100 mg tablet 100 mg PO DAILY High blood pressure 05/04/20 02/23/24 History rosuvastatin 40 mg tablet 40 mg PO HS Cholesterol 05/04/20 02/23/24 History umeclidinium 62.5 mcg-vilanterol 1 puff IH DAILY Breathing problems 05/04/20 02/23/24 History 25 mcg/actuation powdr for inhalation aspirin 81 mg tablet,delayed 81 mg PO DAILY ##90 05/05/20 02/23/24 Rx release azithromycin 250 mg tablet 250 mg PO DIRECTED #6 tabs 05/05/20 02/23/24 Rx dexamethasone 4 mg tablet 4 mg PO BID 3 days #6 tabs 05/05/20 02/23/24 Rx hydrocodone 7.5 mg-acetaminophen 1 each PO Q6HP PRN CANCER PAIN #15 05/05/20 02/23/24 Rx 325 mg tablet tabs New Prescriptions to Start Prescriptions: Allergies Allergy/AdvReac Type Severity Reaction Status Date / Time amlodipine Allergy Unknown Verified 05/05/20 08:36 Assessment and Plan *Assessment and plan (1) Degenerative disc disease, lumbar: Status: Acute Category: Medical Code(s): M51.369 - Other intervertebral disc degeneration, lumbar region without mention of lumbar back pain or lower extremity pain (2) Lumbar radiculopathy: Status: Acute Category: Medical Code(s): M54.16 - Radiculopathy, lumbar region (3) Peripheral neuropathy: Status: Acute Category: Medical Code(s): G62.9 - Polyneuropathy, unspecified (4) Spinal stenosis of lumbar region with neurogenic claudication: Status: Acute Category: Medical Code(s): M48.062 - Spinal stenosis, lumbar region with neurogenic claudication Plan Patient is experiencing worsening pain in his low back with radiating numbness and tingling into his right lower extremity. Patient did have limited range of motion and a positive leg raise during today's visit. Patient does also have symptoms consistent with spinal stenosis with neurogenic claudication symptoms. I did review over the possibility of the minimally invasive lumbar decompression and have recommended that we try the epidural with epidurogram to see if he is a candidate. Risk and benefits were discussed with the patient and he would like to proceed forward with this plan of care. Patient has tried and failed conservative therapy including oral medications, heat and ice, topicals, continued at home stretching exercise for longer than 12 weeks with no additional changes. Patient is not on any blood thinners. Patient will be scheduled for an LESI L5-S1 with epidurogram under fluoroscopy. Patient has been instructed to contact the clinic with any concerns before the next appointment. Dr. Locke has reviewed this note and agrees with this plan of care. This note was dictated using voice recognition software and make contain errors or omissions. All injections are used with Lidocaine or Bupivacaine and Depo Medrol.
== END 2024-02-23 23:59 | disposition home or self-care (01) ==
LOC: SC.PAIN 14:40
PROVIDERS: PCP Internal Medicine Adolescent Medicine; Visit Provider Nurse Practitioner Family
DX: G62.9 Polyneuropathy, unspecified (principal); M48.062 Spinal stenosis, lumbar region with neurogenic claudication; M51.16 Intervertebral disc disorders with radiculopathy, lumbar region; F17.210 Nicotine dependence, cigarettes, uncomplicated; Z73.89 Other problems related to life management difficulty
CPT/HCPCS: 99212; G0463

== ENCOUNTER 2024-02-27 09:16 | Outpatient (CLI) | payer MEDICARE, SELFPAY ==
--- NOTE | 2024-02-27 09:34 | CT_ITS ---
FINAL REPORT CLINICAL HISTORY: Prostate cancer, follow-up COMPARISON: 04/26/2023 FINDINGS: Axial CT images of the chest were obtained with contrast. Coronal reformatted images were also obtained. This study was performed with techniques to keep radiation doses as low as reasonably achievable, (ALARA). Individualized dose reduction techniques using automated exposure control or adjustment of mA and/or KV according to the patient's size were employed. There is no evidence of mediastinal or hilar mass or adenopathy. No axillary mass or adenopathy is identified. There is mild emphysema and mild scarring. There is no suspicious pulmonary nodule. Again noted are several, presumed sclerotic metastases in T7, T8, and the right third lateral rib. IMPRESSION: Stable, bony metastases. No new mass or adenopathy. Reviewed, Interpreted and Dictated by Shay Soto III, MD Transcribed by Alicia Dove Authenticated and [facility]
--- NOTE | 2024-02-27 09:34 | CT_ITS ---
FINAL REPORT CLINICAL HISTORY: Prostate cancer, follow-up FINDINGS: CT OF THE ABDOMEN AND PELVIS WITH CONTRAST Axial CT images of the abdomen and pelvis were obtained after the administration of oral and iv contrast. Coronal reformatted images were also obtained and reviewed.This study was performed with techniques to keep radiation doses as low as reasonably achievable (ALARA). Individualized dose reduction techniques using automated exposure control or adjustment of mA and/or kV according to the patient's size were employed. Abdomen: There is a less than 1 cm cyst in the left hepatic lobe. The spleen is unremarkable. No adrenal mass is present. The pancreas has an unremarkable appearance. The kidneys are normal, without evidence of mass or hydronephrosis. The aorta is normal in caliber. There are moderate vascular calcifications. There is no free fluid or adenopathy. No abnormal fluid collection is seen. Pelvis: The appendix normal. The urinary bladder is unremarkable. No inflammatory process is seen. There is no evidence of mass or adenopathy. There is no evidence of bowel obstruction. There is sigmoid diverticulosis. There are bilateral inguinal hernias containing fat. There are several sclerotic foci in the bony skeleton including L5 and the bony pelvis. 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 There are bilateral L5 pars defects. IMPRESSION: Stable bony metastasis. No new mass or adenopathy. Reviewed, Interpreted and Dictated by Shay Soto III, MD Transcribed by Alicia Dove Authenticated and [facility]
[2024-02-27 09:47] LABS: Blood Urea Nitrogen 41 mg/dl (9-20); Estimated Glomerular Filt Rate 32 ml/min (>60); GFR (African American) 39 ML/MIN (>60)
[2024-02-27] MEDS: IOPAMIDOL-370 (76%);100ML BOTTLE 75 ML IV (10:33)
[2024-02-27] MEDS: SODIUM CHLORIDE 0.9% 10ML SYR (RAD ONLY) 10 ML IV (10:33)
[2024-02-27 10:42] LABS: Prostate Specific Ag, Diagnost 0.794 ng/ml (0.0-4.0)
== END 2024-02-27 23:59 | disposition home or self-care (01) ==
PROVIDERS: PCP Internal Medicine Adolescent Medicine; Visit Provider Internal Medicine Medical Oncology
DX: C61 Malignant neoplasm of prostate (principal); C79.51 Secondary malignant neoplasm of bone
CPT/HCPCS: 36415; 71260; 74177; 82565; 84153; 84520; Q9967

== ENCOUNTER 2024-04-17 12:50 | Day surgery (SDC) | payer MEDICARE, SELFPAY ==
[2024-04-17 13:09] VITALS: BP 112/79; PULSE 64; RESP 16; TEMP 36.7; O2SAT 96; BMI 31.5
[2024-04-17 13:18] VITALS: BP 134/54; PULSE 78; RESP 18; O2SAT 94
[2024-04-17] MEDS: methylPREDNISolone ACETATE 80MG/ML VIAL 80 MG (13:18)
[2024-04-17 13:24] VITALS: BP 134/54; PULSE 78; RESP 18; O2SAT 94
[2024-04-17 13:32] VITALS: BP 130/75; PULSE 70; RESP 16; TEMP 36.7; O2SAT 91
--- NOTE | 2024-04-17 14:03 | EXP.PAIN.PRO ---
Procedure Date: 04/17/24 Time: 13:30 Anesthesiologist:: Jc Mancia CRNA Complications:: None Pre-procedure Diagnosis:: Degenerative disc lumbar spine multilevels. Lumbar radiculopathy. Lumbar spinal stenosis. Multilevel lumbar facet arthropathy. Post-procedure Diagnosis:: Same. Indications for Procedure:: Patient is a very pleasant 79-year-old male who comes our clinic today for lumbar epidural steroid injection at L5 5 S1 level. Patient describes low lumbar back pain as well as bilateral hip and leg radicular symptoms. Radicular symptoms go to the feet. He rates his pain 7/10. Procedure Details:: Procedure: Lumbar epidural steroid injection under fluoroscopy Informed consent was obtained and the risks and benefits of the procedure were explained to the patient. The patient was taken to the procedure room and noninvasive monitors placed, including noninvasive blood pressure cuff and pulse oximeter. The back was viewed using C-arm Fluoroscopy and prepped using Chloraprep as a cleansing solution and the L5-S1 interspace was palpated. Skin and subcutaneous tissues were anesthetized using lidocaine 1.5% and a 25-gauge needle. After this, an 18-gauge Touhy epidural needle was placed into the L5-S1 interspace and advanced using fluoroscopic guidance and loss of resistance to air until the epidural space was encountered. After confirmation of needle placement in the epidural space, with dye, a solution containing normal saline, 3 mL and Depo-Medrol 80 mg were incrementally injected into the lumbar epidural space. The patient tolerated the procedure well with no complications. The patient was observed in the Pain Clinic and then discharged home neurologically intact. Plan and Disposition:: Patient was discharged without incident.
[2024-04-17 14:13] LABS: POC Glucose,Bedside 163 (70-110)
== END 2024-04-17 13:32 | disposition home or self-care (01) ==
LOC: SC.PAINP 12:55
PROVIDERS: PCP Internal Medicine Adolescent Medicine; Visit Provider Nurse Anesthetist, Certified Registered
DX: M51.16 Intervertebral disc disorders with radiculopathy, lumbar region (principal); M48.062 Spinal stenosis, lumbar region with neurogenic claudication; M47.26 Other spondylosis with radiculopathy, lumbar region
CPT/HCPCS: 62323; 82962; J1010

== ENCOUNTER 2024-05-02 10:01 | Outpatient (POV) | payer MEDICARE, SELFPAY ==
[2024-05-02 10:26] VITALS: BP 148/64; PULSE 69; RESP 14; O2SAT 97; BMI 31.5
--- NOTE | 2024-05-02 11:12 | EXP.PAIN.SOA ---
[facility] Disclaimer: The information contained in this section may have been updated after the patient was seen, as this information can be updated by other users. Medical History Diabetes HLD (hyperlipidemia) GERD (gastroesophageal reflux disease) Cancer HTN (hypertension) Surgical History History of cancer surgery Family History Other No significant family history Social History Smoking Status: Light tobacco smoker tobacco type: cigarettes packs per day: 1 alcohol intake: current alcohol intake frequency: a few times a week substance use type: marijuana current occupational status: other Travel in the last 8 weeks: None household members: other housing: house PM Subjective & Objective Subjective Subjective:: Patient is a pleasant 79-year-old male who presents today for follow-up of lumbar epidural steroid injection L5-S1 on 04/17/2024. Today he does rate his pain about a 3 or 4 out of 10. He does state that initially after having this injection that he was at 100% better while the numbing medication was working. He states then he had 2 days of excruciating pain where he literally could not get up other than to go to the restroom. He does state that this did ease down and that he has had significant improvement in his radiating symptoms to his right foot. He states that pain is much more tolerable and not as constant. He does however state that he has been having worsening back pain and feels like it is across his back into his hips. He states this has been worse since having the injection. Patient states that he has used Tylenol and ibuprofen as well as even tried a Tylenol 3 with minimal improvement. His Ilir has been reviewed and is appropriate. Review of Systems: General: No recent weight changes, no fever, no sleep disturbances Respiratory: No cough, no shortness of air, no recurring pulmonary infections Cardiovascular/peripheral vascular: No chest pain, no palpitations, no edema, no shortness of breath Gastrointestinal: No new onset incontinence, normal bowel movements reported Genitourinary: No new onset incontinence Musculoskeletal: Low back pain Psychiatric: [Normal mood/affect] Neurological: [Denies weakness in extremities], [denies balance issues] Pain at rest (0-10 scale): 3 Objective Objective:: Physical Exam: General: Alert and oriented x3, no acute distress, pleasant and cooperative Lungs: Respirations even and unlabored, symmetrical chest expansion Eyes: PERRL Musculoskeletal: Flexion and extension of lumbar [spine] somewhat guarded secondary to pain, [antalgic gait noted] Neurological: Speech clear, no gross sensory deficit Has patient had previous pain injection?: Yes Percent improvement in pain since last injection: 100% while numbing medication was working Conservative treatment options previously tried: Home exercise plan Length of treatment: Longer than 12 weeks Meds Home Medications and Allergies Home Medications ?Medication ?Instructions ?Recorded ?Confirmed ?Type abiraterone 500 mg tablet 1,000 mg PO DAILY CANCER 05/04/20 05/02/24 History bisoprolol fumarate 5 mg tablet 5 mg PO DAILY High blood pressure 05/04/20 05/02/24 History esomeprazole magnesium 40 mg 40 mg PO BID unknown 05/04/20 05/02/24 History capsule,delayed release ezetimibe 10 mg tablet 10 mg PO DAILY Cholesterol 05/04/20 05/02/24 History fexofenadine-pseudoephedrine ER 1 each PO DAILY Allergy symptoms 05/04/20 05/02/24 History 180 mg-240 mg tablet,ext.release 24 hr hydrochlorothiazide 25 mg tablet 50 mg PO BID Edema 05/04/20 05/02/24 History insulin aspar prt-insulin aspart 45 unit SQ BID Diabetes 05/04/20 05/02/24 History 100 unit/mL (70-30) subcutaneous soln insulin glargine 100 unit/mL 80 unit SQ DAILY Diabetes 05/04/20 05/02/24 History subcutaneous solution losartan 100 mg tablet 100 mg PO DAILY High blood pressure 05/04/20 05/02/24 History rosuvastatin 40 mg tablet 40 mg PO HS Cholesterol 05/04/20 05/02/24 History umeclidinium 62.5 mcg-vilanterol 1 puff IH DAILY Breathing problems 05/04/20 05/02/24 History 25 mcg/actuation powdr for inhalation aspirin 81 mg tablet,delayed 81 mg PO DAILY ##90 05/05/20 05/02/24 Rx release azithromycin 250 mg tablet 250 mg PO DIRECTED #6 tabs 05/05/20 05/02/24 Rx dexamethasone 4 mg tablet 4 mg PO BID 3 days #6 tabs 05/05/20 05/02/24 Rx hydrocodone 7.5 mg-acetaminophen 1 each PO Q6HP PRN CANCER PAIN #15 05/05/20 05/02/24 Rx 325 mg tablet tabs baclofen 10 mg tablet 10 mg PO TID #42 tabs 05/02/24 Rx New Prescriptions to Start Prescriptions: baclofen Melissa Harper Allergies Allergy/AdvReac Type Severity Reaction Status Date / Time amlodipine Allergy Unknown Unknown Verified 04/17/24 13:12 allergy reaction Assessment and Plan *Assessment and plan (1) Lumbar radiculopathy: Status: Acute Category: Medical Code(s): M54.16 - Radiculopathy, lumbar region (2) Degenerative disc disease, lumbar: Status: Acute Category: Medical Code(s): M51.369 - Other intervertebral disc degeneration, lumbar region without mention of lumbar back pain or lower extremity pain Plan Patient has had significant improvements following this injection into his radicular symptoms however he is having worsening pain in his low back. Patient had a negative Deng's and point tenderness along his SI joints. Patient's pain is lower than where our L5-S1 epidural was. I did discuss with the patient that I do believe it may be more tension in his muscles and am going to send in a 2-week dose of baclofen 10 mg 3 times daily as needed. I did discuss with the patient in future we can look at doing additional injections related to where his pain is at that time. Patient will return to clinic in 2 weeks for reevaluation of symptoms and plan of care. Patient has been instructed to contact the clinic with any concerns before the next appointment. Dr. Locke has reviewed this note and agrees with this plan of care. This note was dictated using voice recognition software and make contain errors or omissions. All injections are used with Lidocaine, Bupivacaine and Depo Medrol. Occasionally urine drug screen is needed to verify patient's compliance with our office pain contract. This is ordered based off specific treatments related to chronic pain with the potential to abuse certain medications.
== END 2024-05-02 23:59 | disposition home or self-care (01) ==
PROVIDERS: PCP Internal Medicine Adolescent Medicine; Visit Provider Nurse Practitioner Family
DX: M51.16 Intervertebral disc disorders with radiculopathy, lumbar region (principal); F17.210 Nicotine dependence, cigarettes, uncomplicated
CPT/HCPCS: 99212; G0463

== ENCOUNTER 2024-05-16 14:34 | Outpatient (POV) | payer MEDICARE, SELFPAY ==
[2024-05-16 15:03] VITALS: BMI 31.5
--- NOTE | 2024-05-16 15:18 | EXP.PAIN.SOA ---
[facility] Disclaimer: The information contained in this section may have been updated after the patient was seen, as this information can be updated by other users. Medical History Diabetes HLD (hyperlipidemia) GERD (gastroesophageal reflux disease) Cancer HTN (hypertension) Surgical History History of cancer surgery Family History Other No significant family history Social History Smoking Status: Light tobacco smoker tobacco type: cigarettes packs per day: 1 alcohol intake: current alcohol intake frequency: a few times a week substance use type: marijuana current occupational status: other Travel in the last 8 weeks: None household members: other housing: house PM Subjective & Objective Subjective Subjective:: Patient is a pleasant 79-year-old male who presents today for follow-up. Today he rates his pain overall in his back 2 out of 10 in his right foot 1 out of 10. He denies any new trauma or injury from her last visit. He does state overall the pain is definitely not as severe and not as constant. He does state however that it will change day-to-day and some days his foot is hurting more than his back and vice versa. Patient has been using the compounded cream and feels like that does help. He states he did try the baclofen at night and did not really notice significant improvement. Patient does have questions regarding possibly trying a TENS unit. His Ilir has been reviewed and is appropriate. Review of Systems: General: No recent weight changes, no fever, no sleep disturbances Respiratory: No cough, no shortness of air, no recurring pulmonary infections Cardiovascular/peripheral vascular: No chest pain, no palpitations, no edema, no shortness of breath Gastrointestinal: No new onset incontinence, normal bowel movements reported Genitourinary: No new onset incontinence Musculoskeletal: Low back pain, right foot pain Psychiatric: [Normal mood/affect] Neurological: [Denies weakness in extremities], [denies balance issues] Pain at rest (0-10 scale): 2 Objective Objective:: Physical Exam: General: Alert and oriented x3, no acute distress, pleasant and cooperative Lungs: Respirations even and unlabored, symmetrical chest expansion Eyes: PERRL Musculoskeletal: Flexion and extension of lumbar [spine] somewhat guarded secondary to pain, [antalgic gait noted] Neurological: Speech clear, no gross sensory deficit Has patient had previous pain injection?: No Conservative treatment options previously tried: Home exercise plan Length of treatment: Longer than 12 weeks Meds Home Medications and Allergies Home Medications ?Medication ?Instructions ?Recorded ?Confirmed ?Type abiraterone 500 mg tablet 1,000 mg PO DAILY CANCER 05/04/20 05/16/24 History bisoprolol fumarate 5 mg tablet 5 mg PO DAILY High blood pressure 05/04/20 05/16/24 History esomeprazole magnesium 40 mg 40 mg PO BID unknown 05/04/20 05/16/24 History capsule,delayed release ezetimibe 10 mg tablet 10 mg PO DAILY Cholesterol 05/04/20 05/16/24 History fexofenadine-pseudoephedrine ER 1 each PO DAILY Allergy symptoms 05/04/20 05/16/24 History 180 mg-240 mg tablet,ext.release 24 hr hydrochlorothiazide 25 mg tablet 50 mg PO BID Edema 05/04/20 05/16/24 History insulin aspar prt-insulin aspart 45 unit SQ BID Diabetes 05/04/20 05/16/24 History 100 unit/mL (70-30) subcutaneous soln insulin glargine 100 unit/mL 80 unit SQ DAILY Diabetes 05/04/20 05/16/24 History subcutaneous solution losartan 100 mg tablet 100 mg PO DAILY High blood pressure 05/04/20 05/16/24 History rosuvastatin 40 mg tablet 40 mg PO HS Cholesterol 05/04/20 05/16/24 History umeclidinium 62.5 mcg-vilanterol 1 puff IH DAILY Breathing problems 05/04/20 05/16/24 History 25 mcg/actuation powdr for inhalation aspirin 81 mg tablet,delayed 81 mg PO DAILY ##90 05/05/20 05/16/24 Rx release azithromycin 250 mg tablet 250 mg PO DIRECTED #6 tabs 05/05/20 05/16/24 Rx dexamethasone 4 mg tablet 4 mg PO BID 3 days #6 tabs 05/05/20 05/16/24 Rx hydrocodone 7.5 mg-acetaminophen 1 each PO Q6HP PRN CANCER PAIN #15 05/05/20 05/16/24 Rx 325 mg tablet tabs baclofen 10 mg tablet 10 mg PO TID #42 tabs 05/02/24 05/16/24 Rx New Prescriptions to Start Prescriptions: Allergies Allergy/AdvReac Type Severity Reaction Status Date / Time amlodipine Allergy Unknown Unknown Verified 04/17/24 13:12 allergy reaction Assessment and Plan *Assessment and plan (1) Degenerative disc disease, lumbar: Status: Acute Category: Medical Code(s): M51.369 - Other intervertebral disc degeneration, lumbar region without mention of lumbar back pain or lower extremity pain (2) Lumbar radiculopathy: Status: Acute Category: Medical Code(s): M54.16 - Radiculopathy, lumbar region (3) Peripheral neuropathy: Status: Acute Category: Medical Code(s): G62.9 - Polyneuropathy, unspecified Plan PainI did review over with the patient that does start to become more severe or bothersome and interferes with his activities of daily living we can always try additional injections. I did review over with the patient that I can order a TENS unit for him to try for both his back and foot however there is a chance that his insurance would not cover the device. Patient acknowledges understanding and agrees with this plan of care. We will reach out to the [employer]rent[employer] and have it submitted to his insurance to provide additional support and relief of his chronic pain at these areas. Patient has tried and failed conservative therapy including oral medication, heat and ice, topicals, at home stretching exercise for longer than 12 weeks. Patient will return to clinic in 1 month for reevaluation of symptoms and plan of care. Patient has been instructed to contact the clinic with any concerns before the next appointment. Dr. Locke has reviewed this note and agrees with this plan of care. This note was dictated using voice recognition software and make contain errors or omissions. All injections are used with Lidocaine, Bupivacaine and Depo Medrol. Occasionally urine drug screen is needed to verify patient's compliance with our office pain contract. This is ordered based off specific treatments related to chronic pain with the potential to abuse certain medications.
== END 2024-05-16 23:59 | disposition home or self-care (01) ==
LOC: SC.PAIN 14:37
PROVIDERS: PCP Internal Medicine Adolescent Medicine; Visit Provider Nurse Practitioner Family
DX: G62.9 Polyneuropathy, unspecified (principal); M51.16 Intervertebral disc disorders with radiculopathy, lumbar region; F17.210 Nicotine dependence, cigarettes, uncomplicated; Z79.899 Other long term (current) drug therapy
CPT/HCPCS: 99212; G0463

== ENCOUNTER 2024-08-20 08:43 | Outpatient (CLI) | payer MEDICARE, SELFPAY ==
--- NOTE | 2024-08-20 | CT_ITS ---
FINAL REPORT TECHNIQUE: Thin section axial images were obtained from the lung apices through the upper abdomen without contrast. This study was performed with techniques to keep radiation doses as low as reasonably achievable (ALARA). Individualized dose reduction techniques using automated exposure control or adjustment of mA and/or kV according to the patient's size were employed. CLINICAL HISTORY: MALIGNANT NEOPLASM METASTATICTO BONE COMPARISON: 02/27/2024 FINDINGS: There is no mediastinal, hilar, or axillary lymphadenopathy. No pleural or pericardial effusion. No suspicious nodule or mass. Interlobular septal thickening is most pronounced at the lung bases, likely chronic. No focal infiltrate. Sclerotic bone lesions are stable. No new metastases identified.. IMPRESSION: No acute intrathoracic abnormality. No change in sclerotic bony metastases. Reviewed, Interpreted and Dictated by Nichole Rivero MD Transcribed by Arielle Horner Authenticated and [facility]
--- NOTE | 2024-08-20 08:49 | CT_ITS ---
FINAL REPORT TECHNIQUE: Thin section axial images are obtained through the abdomen and pelvis after intravenous contrast. Reconstruction images were obtained from the axial data. Exam was performed using dose reduction techniques. CLINICAL HISTORY: malignant neoplasm of prostate COMPARISON: 02/27/2024 FINDINGS: LUNG BASES: Previously seen nodularity at the lung bases has resolved with chronic interlobular septal thickening seen. Heart size is normal. LIVER: Homogeneous. Subcentimeter hypodense lesion in the left hepatic lobe is unchanged. No new liver lesion is identified. GALLBLADDER/BILIARY SYSTEM: Gallbladder is present. No gallstones. No biliary dilatation. SPLEEN: Unremarkable. PANCREAS: Unremarkable. ADRENALS: Unremarkable. KIDNEYS/URETERS/BLADDER: No hydronephrosis, renal mass, or renal stone. Unremarkable urinary bladder. GI TRACT: No small bowel obstruction or dilatation. Normal appendix. There is diverticulosis without evidence of diverticulitis. No acute colon abnormality. PELVIC ORGANS: Prostate is small. Pelvic organs otherwise unremarkable. LYMPH NODES/RETROPERITONEUM/MESENTERY: No lymphadenopathy. No abdominal aortic aneurysm. ABDOMINAL WALL: Fat-containing left inguinal hernia is present.. FREE FLUID: No ascites. BONES: Sclerotic lesion in the right aspect of the L5 vertebral body is stable. There is also stable sclerosis in the pelvis. No new bone lesion is identified. IMPRESSION: Stable sclerotic lesions involving the L5 vertebral body and pelvis. No new abnormality. Reviewed, Interpreted and Dictated by Nichole Rivero MD Transcribed by Miriam Cardoza Authenticated and [facility]
--- NOTE | 2024-08-20 08:49 | NM_ITS ---
FINAL REPORT CLINICAL HISTORY: F/U PROSTATE CANCER PT HAS BONE SCAN EVERY 6 MONTHS 10:25AM 27.5 MCI TC MDP FINDINGS: EXISTING RELEVANT IMAGING STUDIES: Prior 05/03/2024 TECHNIQUE: The patient was injected with 27.5 mCi of technetium 99-MDP. 3 hour delayed images were obtained. FINDINGS: Soft tissue and renal uptake is normal. Hypermetabolism within the posterior cervical spine is favored to be degenerative. The appearance is similar to the prior exam. No other sites of radiotracer uptake are seen to suggest bony metastatic disease. IMPRESSION: No findings to indicate metastatic bone disease. Reviewed, Interpreted and Dictated by Nichole Rivero MD Transcribed by Arielle Horner Authenticated and . [facility]
[2024-08-20 09:26] LABS: Basophils % 0.4 % (0.1-2.0); Hematocrit 35.9 % (42.0-52.0); Hemoglobin 11.6 g/dL (14.1-18.0); Immature Granulocytes # 0.05 10^3uL; Immature Granulocytes % 0.6 %; Lymphocytes # 1.6 K/mm3 (0.7-4.5); Lymphocytes % 20.1 % (10-50); Mean Corpuscular HGB Conc 32.3 g/dL (31.8-35.4); Mean Corpuscular Hemoglobin 32.9 pg (27.0-31.2); Mean Corpuscular Volume 101.7 fl (80-94); Mean Platelet Volume 10.5 fl (7.4-10.4); Monocytes # 0.7 K/mm3 (0.1-1.0); Monocytes % 8.2 % (1.7-9.3); Neutrophils # 5.8 K/mm3 (1.8-7.8); Neutrophils % 70.7 % (37.0-80.0); Nucleated Red Blood Cells # 0 10^3/uL; Nucleated Red Blood Cells % 0 %; Platelet Count 126 K/mm3 (142-424); Red Blood Count 3.53 M/mm3 (4.60-6.20); Red Cell Distribution Width 16.3 % (11.5-17.5); Red Cell Distribution Width-SD 60.5 fL; White Blood Count 8.1 K/mm3 (4.8-10.8)
[2024-08-20 09:31] LABS: Albumin Level 4.2 g/dl (3.5-5.0); Chloride 113 mmol/L (98-107); Potassium 4.4 mmoL/L (3.5-5.1); Sodium 144 mmol/L (136-145)
[2024-08-20 09:34] LABS: Alanine Aminotransferase 26 U/L (12-78); Albumin/Globulin Ratio 1.5 (1.1-1.8); Alkaline Phosphatase 52 U/L (38-126); Anion Gap 9.4 mEq/L (5-15); Aspartate Amino Transferase 26 U/L (17-59); Bilirubin,Total 0.7 mg/dl (0.2-1.3); Blood Urea Nitrogen 44 mg/dl (9-20); Carbon Dioxide 26 mmol/L (22.0-30.0); Estimated Glomerular Filt Rate 26 ml/min (>60); GFR (African American) 32 ML/MIN (>60); Globulin 2.8 g/dL (1.3-3.2)
[2024-08-20 09:35] LABS: Calcium 9.4 mg/dl (8.4-10.2); Glucose 80 mg/dl (74-100)
[2024-08-20 09:54] LABS: Hemoglobin A1C 6.8 % (4.0-6.0)
[2024-08-20 09:59] LABS: Chol/HDL Ratio 3.6 (1-3.5); Cholesterol 164 mg/dl (140-200); HDL Cholesterol 45 mg/dl (40-60); Triglycerides 277 mg/dl (30-150); VLDL Cholesterol 55 mg/dL (0-40)
[2024-08-20 10:10] LABS: Direct LDL Cholesterol 69.33 mg/dL (100-129)
[2024-08-20 10:30] LABS: Prostate Specific Ag, Diagnost 1.17 ng/ml (0.0-4.0)
[2024-08-20] MEDS: SODIUM CHLORIDE 0.9% 10ML SYR (RAD ONLY) 10 ML IV (10:30)
[2024-08-20] MEDS: ISOTOPE MDP (BONE);1 DOSE VIAL IV (10:30)
== END 2024-08-20 23:59 | disposition home or self-care (01) ==
LOC: RAD 08:44
PROVIDERS: PCP Internal Medicine Adolescent Medicine; Visit Provider Internal Medicine Medical Oncology
DX: C61 Malignant neoplasm of prostate (principal); C79.51 Secondary malignant neoplasm of bone; E78.5 Hyperlipidemia, unspecified; E11.9 Type 2 diabetes mellitus without complications
CPT/HCPCS: 36415; 71250; 74176; 78306; 80053; 80061; 83036; 84153; 85025; A9503

== ENCOUNTER 2024-09-06 13:51 | Outpatient (RCR) | payer MEDICARE, SELFPAY | END 2024-09-06 23:59 | disposition home or self-care (01) | LOC: PT 13:51 | PROVIDERS: PCP Internal Medicine Adolescent Medicine; Visit Provider Physical Medicine & Rehabilitation Spinal Cord Injury Medicine | DX: M54.50 Low back pain, unspecified (principal) | CPT/HCPCS: 97163; 97530 ==

== ENCOUNTER 2024-10-03 15:19 | Outpatient (CLI) | payer MEDICARE, SELFPAY ==
--- OUTSIDE RECORDS SUMMARY | 2024-10-03 15:22 | XMS_ITS | Continuity of Care Document ---
Author Organization [facility], PHYSICAL MEDICINE & REHABILITATION [address] [place] [address] Care Team Providers Care Occupational Therapy Program Director Name Role Phone DANIEL HAJI Referring Provider JAN INMAN Phys. Med. & Rehab TRACY RIDDLE Internal Medicine Assessment No assessment recorded. Plan of Treatment Reminders Order Date Submit Date Provider Last Modified By Organization Details Last Modified Time Details Appointments ESC-DBL 2024 10:30A M DANIEL MCLAUGHLIN MD Not available Not available Not available RECHECK 2024 02:00P M JAN INMAN MD Not available Not available Not available Lab None recorded. Referral None recorded. Procedures None recorded. Surgeries None recorded. Imaging None recorded. Medication Orders gabapenti n 300 mg capsule 2024 025 [facility], [address] [place] [address], [id number], 08/28/2024 17:11:25 gabapenti n 400 mg capsule 2024 025 [facility], [address] [place] [address], [id number], 08/28/2024 17:11:28 Patient TargetsNo targets recorded. Patient Instructions Encounter Date Encounter Id Patient Instructions Last Modified By Organization Details Last Modified Time 08/28/2024 [id number] The patient's management plan involves exploring physical therapy options as a primary intervention to enhance muscle strength and address potential postural adjustments related to his chronic low back pain. Given the adverse experience with a previous epidural steroid injection and the absence of pain radiating down the legs, alternative pain management strategies such as physical therapy take precedence. The risks associated with further epidural steroid injections outweigh potential benefits at this point, particularly given the renal implications. Gabapentin remains a part of the patient's regimen for managing neuropathic pain, though further evaluation of dosage timing may be needed to improve adherence and efficacy without increasing the overall daily intake. Considerations for nerve block or ablation are reserved unless symptomatic persistence or escalation occurs post-therapy trial. Concerning systemic health, the current anemia and progression of chronic kidney disease will continue under the care of his family physician, with a rheumatological note advising caution against NSAID usage and diuretics that could exacerbate renal dysfunction. Integrative pain relief options, such as compounded topical lidocaine, are available and have been utilized successfully on a PRN (as needed) basis by the patient. The patient is encouraged to maintain physical activity as tolerated, adapting long-term activities to aid in reinforcing musculoskeletal support and general health. Total time spent preparing to see patient by reviewing chart, independently obtaining history, performing physical examination, ordering medications tests or procedures, counseling and educating the patient, communicating with other healthcare professionals, and documenting clinical information into the health record, in minutes: 42 [id number] (10-19) [phone] (20-29) [phone] (30-39) [id number] (40-54) [email or web address] Not available 08/28/2024 17:11:17 Reason for Referral None Reported. 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 Active 2014 From Automated Load;Provi nahid: James Pacheco; atus: Active Not Available [facility] 6 05:12:51 Problem Notes Documentation Provider Name and Address Organization Details Recorded Time Physical Medicine And Rehabilitation Note : [address] [address]QRXWGGM, Marc D (id #[id number], : 1945) [address] [address] Encounter Summary - Progress Note Date Printed: 08/28/2024 Documents sent via fax will include the followingmessage: This fax may contain sensitive and confidential personal health information that is being sent for the sole use of the intended recipient. Unintended recipients are directed to securely destroy any materials received. You are hereby notified that the unauthorized disclosure or other unlawful use of this fax or any personal health information is prohibited. To the extent patient information contained in this fax is subject to 42 CFR Part 2, this regulation prohibits unauthorized disclosure of these records. If you received this fax in error, please visit [email or web address] to notify the sender and confirm that the information will be destroyed. If you do not have internet access, please call to notify the sender and confirm that the information will be destroyed. Thank you for your attention and cooperation. [ID:[id number]] Patient Brant Alvarado (79yo, M) #[id number] 1945 Patient Demographics: Address [address] [place] [address] [address] [place] [address] Work Phone Encounter Notes: Encounter Reason/DateNone recorded 08/28/2024 - 02:00PM - PHYSICAL MEDICINE & REHABILITATION [address] History of Present IllnessThe patient is an 79-year-old male presenting with concerns related to the management of back pain. The back pain is described as chronic, localized primarily at the base of the spine, and sometimes spreading to the pelvis and hips. It tends to worsen upon standing and walking for extended periods but is alleviated by sitting or lying down. The patient's back pain has reportedly intensified post an epidural steroid injection, which resulted in a brief period of incapacitation. He is currently prescribed gabapentin for neuropathic foot pain, taking lesser doses than before, and struggles with consistent medication adherence. Regarding systemic health, he faces new medical findings of borderline anemia and stage 4 chronic kidney disease. Current management strategies involve avoiding NSAIDs and certain diuretics, as advised by his primary care provider. Review of SystemsNone recorded Vitals Ht: 5 ft 9 in08/28/2024 02:02 pm BP: 128/76 sitting R arm08/28/2024 02:06 pm Pulse: 70 bpm08/28/2024 02:04 pm Results/InterpretationsNone recorded Physical ExamAmbulates with a slightly antalgic gait pattern. Overweight. No acute distress. He is able to stand up from a seated position without using his arms. Procedure DocumentationNone recorded Assessment and Plan 1.Chronic bilateral low back pain without sciaticaHe has chronic low back pain. He has been evaluated by neurosurgery in the past. He denies any radiating pain down the leg or into the foot. Tylenol helps but he is reluctant to take Tylenol due to fear of liver damage. Advised him that Tylenol is one of the safer medications and that since it is effective I would recommend he continue using that as needed. Avoid NSAIDs due to renal insufficiency. Patient tried epidural injection in [place]. Resulted in severe flare of pain and 2 days of debility. potentially interested in establishing with another pain management provider, particularly if no improvement with physical therapy. Would recommend medial branch blocks for facet arthropathy rather than epidural. Suspect he also has a component of sacroiliac joint pain as well. Refer to physical therapy for axial low back pain.M54.50: Low back pain, unspecified G89.29: Other chronic pain 2.Diabetic peripheral neuropathyRenew gabapentin. Taking 300 mg in the morning, 400 mg midday, and 300 mg at night. Follow-up in 6 macmdjY05.42: Type 2 diabetes mellitus with diabetic polyneuropathy gabapentin 300 mg capsule - Take 1 capsule(s) twice a day by oral route. Qty: (60) capsule Refills: 5 Pharmacy: [facility] Note to Pharmacy: This will be combined with 400mg at afternoon gabapentin 400 mg capsule - Take 1 capsule(s) every day by oral route. Qty: (30) capsule Refills: 5 Pharmacy: [facility] Note to Pharmacy: This script is combined with 300mg qAM, 400mg midday, and 300mg qhs Discussion NotesThe patient's management plan involves exploring physical therapy options as a primary intervention to enhance muscle strength and address potential postural adjustments related to his chronic low back pain. Given the adverse experience with a previous epidural steroid injection and the absence of pain radiating down the legs, alternative pain management strategies such as physical therapy take precedence. The risks associated with further epidural steroid injections outweigh potential benefits at this point, particularly given the renal implications. Gabapentin remains a part of the patient's regimen for managing neuropathic pain, though further evaluation of dosage timing may be needed to improve adherence and efficacy without increasing the overall daily intake. Considerations for nerve block or ablation are reserved unless symptomatic persistence or escalation occurs post-therapy trial. Concerning systemic health, the current anemia and progression of chronic kidney disease will continue under the care of his family physician, with a rheumatological note advising caution against NSAID usage and diuretics that could exacerbate renal dysfunction. Integrative pain relief options, such as compounded topical lidocaine, are available and have been utilized successfully on a PRN (as needed) basis by the patient. The patient is encouraged to maintain physical activity as tolerated, adapting long-term activities to aid in reinforcing musculoskeletal support and general health. Total time spent preparing to see patient by reviewing chart, independently obtaining history, performing physical examination, ordering medications tests or procedures, counseling and educating the patient, communicating with other healthcare professionals, and documenting clinical information into the health record, in minutes: 42 [phone] (10-19) 87969 (20-29) 09580 (30-39) 91486 (40-54) Return to Office KALPANA SAUCEDA PA-C for NEW PATIENT at [facility] on 09/19/2024 at 02:30 PM JAN INMAN MD for RECHECK at PHYSICAL MEDICINE & REHABILITATION [address] SB on 02/26/2025 at 02:00 PM Patient Medical History: Allergies List Reviewed Allergies AMLODIPINE: Swelling Medications Reviewed Medications NameDate Source fqxzueourykma22/06/23 entered Alycia Vaughn [place] Wtjjpmu64/06/23 entered Alycia Vaughn bisoprolol fumarate 5 mg tabletTake 1 tablet(s) every day by oral route.10/14/16 entered LYNDA PUCKETT APRN clobetasoL 0.05 % topical ointmentAPPLY A THIN LAYER TO THE AFFECTED AREA(S) OF POISON KEON BY TOPICAL ROUTE 2 TIMES PER DAY UP TO 2 WEEKS PRN LCOANC11/30/23 prescribed JAMES PACHECO APRN dapagliflozin ljgqagkydcj85/09/22 entered VANESA ROMANO Farxiga 5 mg tabletTake 1 tablet(s) every day by oral route for 30 days.02/29/24 prescribed LATIA BRAGA APRN fluorouraciL 5 % topical solutionAPPLY A SUFFICIENT AMOUNT TO COVER THE LESIONS IN THE AFFECTED AREA(S) PRECANCERS ON SCALP BY TOPICAL ROUTE QD X 3 WEEKS11/17/22 prescribed JAMES PACHECO APRN gabapentin 300 mg capsuleTake 1 capsule(s) twice a day by oral route. Note:take 300mg in morning and at night08/28/24 prescribed JAN INMAN MD gabapentin 400 mg capsuleTake 1 capsule(s) every day by oral route. Note:take 400mg at wxdufl92/10/25 prescribed JAN INMAN MD HumaLOG KwikPen U-200 Insulin 200 unit/mL (3 mL) subcutaneousInject 100 unit(s) 3 times a day by subcutaneous route for 30 days.11/17/23 prescribed LATIA BRAGA APRN HumaLOG Mix 75-25 KwikPen U-100 insulin 100 unit/mL subcutaneous penInject 100 unit(s) 3 times a day by subcutaneous route before meal(s) for 30 days.02/29/24 prescribed LATIA BRAGA APRN HumaLOG U-100 Insulin 100 unit/mL subcutaneous solutionInject 100 unit(s) 3 times a day by subcutaneous route for 30 days.11/18/23 prescribed LATIA BRAGA APRN hydroCHLOROthiazide 25 mg tabletTake 1 tablet(s) every day by oral route.10/14/16 entered LYNDA PUCKETT APRN insulin aspart (niacinamide)(U-100) 100 unit/mL (3 mL) subcu cartridgeInject by subcutaneous route.10/27/21 entered VANESA ROMANO lidocaine 5 % topical ointmentAPPLY TO AFFECTED AREA(S) BY TOPICAL ROUTE 1-4 TIMES DAILY LKEQWC35/22/24 prescribed JAN INMAN MD kfitoaor81/09/22 entered VANESA ROMANO NexIUM 40 mg capsule,delayed releaseDaily Internal Note:Duration: 30 days;Frequency: daily;Medication Description: esomeprazole; Dosage:1; Route:oral; refills: entered jessica.243 predniSONE 10 mg tabletTake 1 tablet(s) every day by oral route.11/05/21 entered LISANDRA MONTERO PA-C Hjtncjm97/09/22 entered VANESA ROMANO rosuvastatin 40 mg tabletTake 1 tablet(s) every day by oral route.12/07/17 entered Rhonda Cardozo Max U-300 SoloStar 300 unit/mL (3 mL) subcutaneous insulin penInject 76 unit(s) every day by subcutaneous route for 30 days.02/29/24 prescribed LATIA BRAGA APRN Zetia 10 mg tabletInternal Note:Medication Description: ezetimibe; Route:oral; refills: entered Cont[employer] Innovationsani.262 Family HistoryReviewed Family History Unspecified Relation - Family history of malignant neoplasm - lung, esophogeal - Heart disease Past Medical HistoryReviewed Past Medical History Anemia:Y Arthritis:Y Back Pain:Y COPD:Y Cancer:Y Diabetes:Y Kidney Disease:Y Neuropathy:Y Prostate Problems:Y Serious Illness or Injuries:Y Sleep Apnea:Y Vaccine HistoryNone recorded Electronically Signed by: JAN INMAN [facility] 08:57:22 Procedures Surgical History Date Name Laterality Status Provider Name and Address Organization Details Recorded Time 09/20/19 25 Destruction Premalignant Lesion(s) cancelled Dorinda Marsh [facility] 08/22/2024 08:25:44 02/27/20 24 Biopsy Skin Lesion; Tangential completed Arielle Villanueva [facility] 02/27/2024 15:05:06 02/27/20 24 Skin Tag Removal completed KALPANA SAUCEDA PA-C [address] [place], [address], [facility] 02/27/2024 16:09:27 02/27/20 24 Destruction Premalignant Lesion(s) completed Arielle Villanueva [facility] 02/27/2024 15:17:40 02/27/20 24 Destruction BN Lesions completed Arielle Villanueva [facility] 02/27/2024 15:00:26 10/03/19 24 Suture/Staple removal cancelled Nidia Vegaenez [facility] 09/29/2023 16:38:25 09/21/19 24 Wound Repair; Intermediate completed Dione Hill [facility] 09/21/2023 16:10:17 09/21/19 24 Excision MN Lesion (Ludivina); trunk, arm, leg completed BRAYDON BROWER DO [address] [place], [address], [facility] 09/21/2023 17:52:02 08/25/19 24 Biopsy Skin Lesion; Tangential completed JAMES PACHECO APRN [address] [place], [address], [facility] 08/25/2023 15:36:35 08/25/19 24 Destruction Premalignant Lesion(s) completed JAMES PACHECO APRN [address] [place], [address], [facility] 08/25/2023 15:35:44 08/08/19 24 Electromyography (EMG) with Nerve Conduction Study (NCV) completed JAN INMAN MD [address] [place], [address], [facility] 08/08/2023 17:42:50 02/24/20 23 Destruction Premalignant Lesion(s) completed [facility] 02/23/2023 15:43:23 11/18/19 23 Biopsy Skin Lesion; Tangential completed [facility] 11/17/2022 12:07:30 11/18/19 23 Destruction Premalignant Lesion(s) completed [facility] 11/17/2022 12:07:01 11/18/19 23 Destruction BN Lesions completed [facility] 11/17/2022 12:06:59 08/25/19 23 Destruction MN Lesion; scalp, neck, hand, foot, genitalia completed JAMES PACHECO, POWER ORIGINATOR [address] [place], [address], [facility] 08/25/2022 14:34:09 08/25/19 23 Destruction Premalignant Lesion(s) completed JAMES PACHECO, POWER ORIGINATOR [address] [place], [address], [facility] 08/24/2022 16:37:21 08/25/19 23 Destruction BN Lesions completed Jami Kessler [facility] 08/24/2022 14:57:25 11/07/19 22 Injection Joint/Bursa, Major completed Fabian SAUCEDA PA-C [address] [place], [address], [facility] 11/06/2021 15:18:54 08/21/19 22 Destruction Premalignant Lesion(s) completed Alycia Vaughn [facility] 08/20/2021 11:51:35 12/17/19 18 Biopsy Prostate, Needle w/Transrectal US completed TRACY MINOR MD [address] [place], [address], [facility] 12/16/2017 10:40:55 05/02/19 18 Wound Repair; Intermediate completed BRAYDON BROWER DO [address] [place], [address], [facility] 05/02/2017 17:49:13 05/02/19 18 Excision BN lesion; trunk, arms or legs completed BRAYDON BROWER DO [address] [place], [address], [facility] 05/02/2017 17:49:11 10/15/19 17 Destruction MN Lesion; trunk, arm, leg completed BRAYDON BROWER DO [address] [place], [address], [facility] 10/14/2016 17:50:02 Other completed Haylie Wolfe [facility] 11/28/2017 13:39:11 Knee arthroscopy/surgery completed Rhonda Tate [facility] 12/07/2017 10:48:50 Imaging Results None recorded. Procedure Notes None recorded. Medical Equipment None Reported. Allergies Allergen ID Allergen Name Allergen Category Reaction Reaction Severity Criticality Documentation Date Start Date Code Code System Note Provider Name and Address Organization Details Recorded Time 076500 amlodipin e medicatio n swelling Not available Not available 08/20/2021 75666 RxNorm [facility] 11:40:46 Medications Name Sig Start Date Stop Date Status Note LastModified by Organization Details LastModified Time prednison e 10 mg tablet Take 1 tablet every day by oral route. active Not Available Not Available No t Available gabapenti n 400 mg capsule Take 1 capsule every day by oral route. 2024 active Not Available Not Available Not Avai lable Nexium 40 mg capsule,d elayed release Daily active Duration : 30 days;Waqar quency: daily;Me dication Descript ion: esomepra zole; Dosage:1 ; Route:or al; refills: 0 Not Available Not Available Not Available triamcino lone acetonide 0.1 % topical cream Apply to the rash and itching on the abdomen and back twice a day for up to 2 weeks, then only if needed, for flare ups. You can also use on the ear, if itching. Do not use on the right leg until the infectio n clears, then it can be used on the right legs. It is ok to use on the left leg. 10/27 completed Not Available Not Available Not Available fluoroura cil 5 % topical solution APPLY A SUFFICIE NT AMOUNT TO COVER THE LESIONS IN THE AFFECTED AREA(S) PRECANCE RS ON SCALP BY TOPICAL ROUTE QD X 3 WEEKS 2022 active Not Available Not Available Not Avai lable bisoprolo l fumarate 5 mg tablet Take 1 tablet every day by oral route. active Not Available Not Available No t Available Humalog U-100 Insulin 100 unit/mL subcutane ous solution Inject 100 units 3 times a day by subcutan eous route for 30 days. 2023 active Not Available Not Available Not Avai lable amlodipin e 10 mg tablet Take 1 tablet every day by oral route. 12/07 completed Not Available Not Available Not Available cephalexi n 500 mg capsule Take 1 capsule twice a day for 10 days 02/26 completed Not Available Not Available Not Available metformin 1,000 mg tablet Take 1 tablet twice a day by oral route. 10/27 completed Not Available Not Available Not Available Cipro 500 mg tablet Take 1 tablet every 12 hours by oral route as directed for 3 days. 10/27 completed Not Available Not Available Not Available gabapenti n 300 mg capsule Take 1 capsule twice a day by oral route. 2024 active Not Available Not Available Not Avai lable hydrochlo rothiazid e 25 mg tablet Take 1 tablet every day by oral route. active Not Available Not Available No t Available gabapenti n 100 mg capsule Take 2 capsules 3 times a day by oral route. 02/26 completed Not Available Not Available Not Available clobetaso l 0.05 % topical ointment APPLY A THIN LAYER TO THE AFFECTED AREA(S) OF POISON KEON BY TOPICAL ROUTE 2 TIMES PER DAY UP TO 2 WEEKS PRN FLARES 2022 active Not Available Not Available Not Avai lable Benicar 40 mg tablet Take 1 tablet every day by oral route. 12/07 completed Not Available Not Available Not Available Zetia 10 mg tablet active Medicati on Descript ion: ezetimib e; Route:or al; refills: 0 Not Available Not Available Not Available rosuvasta tin 40 mg tablet Take 1 tablet every day by oral route. active Not Available Not Available No t Available acetamino phen active Not Available Not Available Not Available losartan active Not Available Not Avai lable Not Available Ritalin active Not Available Not Avail able Not Available Crestor 12/07 completed Medicati on Descript ion: rosuvast atin; Route:or al; refills: 0 Not Available Not Available Not Available Golytely 236 gram-22.7 4 gram-6.74 gram-5.86 gram oral solution Take as directed 2024 active Not Available Not Available Not Avai lable Humalog Mix 75-25 KwikPen U-100 insulin 100 unit/mL subcutane ous pen Inject 100 units 3 times a day by subcutan eous route before meal(s) for 30 days. 2023 active Not Available Not Available Not Avai lable Edarbi 40 mg tablet 12/07 completed Medicati on Descript ion: azilsart an; Route:or al; refills: 0 Not Available Not Available Not Available Alma Allergy active Not Available Not Available Not Available lidocaine 5 % topical ointment APPLY TO AFFECTED AREA(S) BY TOPICAL ROUTE 1-4 TIMES DAILY NEEDED 2023 active Not Available Not Available Not Avai lable Farxiga 5 mg tablet Take 1 tablet every day by oral route for 30 days. 2023 active Not Available Not Available Not Avai lable dapaglifl ozin propanedi ol active Not Available Not Available Not Available insulin glargine (U-300) conc. 300 unit/mL (1.5 mL) subcutane ous pen active Not Available Not Available Not Available Humalog KwikPen U-200 Insulin 200 unit/mL (3 mL) subcutane ous active Not Available Not Available Not Available Toujeo Max U-300 SoloStar 300 unit/mL (3 mL) subcutane ous insulin pen Inject 76 units every day by subcutan eous route for 30 days. 2023 active Not Available Not Available Not Avai lable insulin aspart (niacinam ashley)(U-10 0) 100 unit/mL (3 mL) subcu cartridge Inject by subcutan eous route. active Not Available Not Available No t Available Sutab 1.479-0.1 88-0.225 gram tablet DIRECTED 10/27 completed Not Available Not Available Not Available Vitals Date Recorded Body height Heart rate Systolic And Diastolic Provider Name and Address Organization Details Last Updated DateTime 08/28/2024 175.26 cm 70 /min 128/76 mm[Hg] Tony Giraldo [facility] 08/28/2024 14:06:04 Social History Question Answer Notes LastModified by Organizat ion Details LastModified Time Tobacco Smoking Status Current Every Day Smoker LYNDA PUCKETT, POWER ORIGINATOR [address] [place], [address], [facility] 10/14/2016 10:10:00 Marital Status Informatio n not available 12/07/2017 What Was The Date Of Your Most Recent Tobacco Screening? 06/06/2018 Information n ot available 05/08/2019 Sex: Male Functional Status Question Answer Note LastModified by Organizat ion Details LastModified Time What is your level of alcohol consumption? Occasional Information not available 12/07/2017 Mental Status None recorded. Family History Relationship Description Onset Age of this Age Resolved Age Notes LastModified by Organization Details LastModified Time Unspecified Relation Family history of malignant neoplasm lung, esopho geal hbasham Not available 12/07/2017 10:48:20 Unspecified Relation Heart disease hbasham Not available 2017 10:48:29 Medical History Condition Response Pancreatitis N Coronary Artery Disease N Other N Gout N Macular Degeneration N Kidney Stones N Hyperthyroidism N MRSA N Heart Arrhythmia N Emphysema N Head Trauma/Injury N COPD Y Depression N Pneumonia N Prostate Problems Y Cancer Prostate Y Gastrointestinal Disease N Paralysis N Anxiety Disorder N Autoimmune disease N Vision or Eye Problems N Arthritis Y Blood Clot N Acid Reflux (GERD) Y Cancer Y Stroke N Melanoma N Crohn's Disease N Leg or Foot Ulcers N Skin Cancer Y Rheumatoid Arthritis N Arrhythmia N Fibromyalgia N Headaches N Kidney Disease Y Heart Problems N Squamous Cell Carcinoma Y Hospitalizations N Black Lung N Gallbladder Disease N Migraines N Kidney or Bladder Problems N Acne N Goiter N Skin Problems N Nervous Breakdown N Joint Pain N Neck Pain N Urinary Problems N Brain Injury N Ulcers N Osteopenia N Other Skin Condition Y Rheumatic Fever N Bleeding Disorder N Tuberculosis N AIDS/HIV N Cataract N Asthma N Amputation N Peripheral Vascular Disease N Sleep Disorder N Hepatitis N Neuropathy Y Thyroid Disease N Hernia N Ostomy N Lung Disease N Glaucoma N Hypothyroidism N Thyroid nodule mass N Pacemaker N Vascular Disease N Anesthesia Complications N Varicose Veins N Spasticity N Hypercalcemia N Shingles N Esophagus/swallowing trouble N Serious Illness or Injuries Y Hypoglycemia N Thyroid cyst N Alcohol Overuse/Alcohol Abuse N High Cholesterol Y Liver Disease N Allergies/Hayfever N Parkinson's Disease N Falls N Thyroid Problems N ADD/ADHD N Osteoporosis/Osteopenia N Anemia Y Chest Pain N Back Pain Y Colon Polyps N Stomach trouble N Heart Attack ([place]) N Mental Illness N Diabetes Y High triglycerides Y Seizures/Epilepsy N Congestive Heart Failure (CHF) N Hyperlipidemia N Eczema N Abuse/Domestic Violence N Diverticulitis N Ankylosing Spondylitis N Epilepsy/Seizures N Basal Cell Carcinoma Y Sleep Apnea Y Aneurysm N Heart Disease N Hypertension N Osteoporosis N Past Encounters Encounter ID Performer Location Encounter Start Date Encounter Closed Date Diagnosis/Indication Diagnosis SNOMED-CT Code Diagnosis ICD10 Code Diagnosis Note [id number] JAN INMAN MD [facility] [address] [place] [address] 08/28/2024 13:37:44 08/29/2024 04:17:50 Chronic low back pain [id number] M54.50 G89.29 He has chronic low back pain. He has been evaluated by neurosurge ry in the past. He denies any radiating pain down the leg or into the foot. Tylenol helps but he is reluctant to take Tylenol due to fear of liver damage. Advised him that Tylenol is one of the safer medication s and that since it is effective I would recommend he continue using that as needed. Avoid NSAIDs due to renal insufficie ncy. Patient tried epidural injection in [place]. Resulted in severe flare of pain and 2 days of debility. potentiall y interested in establishi ng with another pain management provider, particular ly if no improvemen t with physical therapy. Would recommend medial branch blocks for facet arthropath y rather than epidural. Suspect he also has a component of sacroiliac joint pain as well. Refer to physical therapy for axial low back pain. Diabetic p eripheral neuropathy [id number] E11.42 Renew gabapentin . Taking 300 mg in the morning, 400 mg midday, and 300 mg at night. Follow-up in 6 months Health Concerns Section Related Observation LastModified by Organization Detai ls LastModified Time None Recorded Concern Status LastModified by Organization Details LastModified Time None Recorded Payers Encounter Date Sequence Insurance Name Policy Number Policy [employer] Covered Member ID [employer] Member ID Guarantor Name 08/28/2024 1 [place] Brant Ashleyk [id number] Brant Alvarado 08/28/2024 2 [employer] (MEDICARE SUPPLEMENT) Brant Alvarado [id number] Brant Alvarado Notes Date Note Type Note Provider Name and Address Organization Details Recorded Time 08/28/2024 text/html The patient is a n 79-year-old male presenting with concerns related to the management of back pain. The back pain is described as chronic, localized primarily at the base of the spine, and sometimes spreading to the pelvis and hips. It tends to worsen upon standing and walking for extended periods but is alleviated by sitting or lying down. The patient's back pain has reportedly intensified post an epidural steroid injection, which resulted in a brief period of incapacitation. He is currently prescribed gabapentin for neuropathic foot pain, taking lesser doses than before, and struggles with consistent medication adherence. Regarding systemic health, he faces new medical findings of borderline anemia and stage 4 chronic kidney disease. Current management strategies involve avoiding NSAIDs and certain diuretics, as advised by his primary care provider. JAN INMAN MD [address] [place] [address], [phone], [facility] 08/28/2024 17:11:19
--- OUTSIDE RECORDS SUMMARY | 2024-10-03 15:23 | XMS_ITS | Data Portability ---
Author Organization [facility] ROSY BrayS MEETEETSE CLOSED Address [address] [facility] [facility] [address] [place] [address] Care Team Providers Care Belt Knife Feeder Name Role Phone DANIEL WAY Referring Provider [phone] GISELLE INMAN Phys. Med. & Rehab TRACY RIDDLE Internal Medicine Assessment Encounter Date Assessment Date Assessment LastModified by Organization Details LastModified Time 02/27/2024 02/27/2024 f/up 6 months skin check is Geena Alvarado [email or web address] Not available 02/27/2024 16:10:17 Plan of Treatment Reminders Order Date Submit Date Provider Last Modified By Organization Details Last Modified Time Details Appointments ESC-DBL 2024 10:30A M DANIEL MCLAUGHLIN MD Not available Not available Not available RECHECK 2024 02:00P M GISELLE INMAN MD Not available Not available Not available Lab glucose, fingerst ick, blood [address] [facility]ology , [address] [place] [address], [phone], 02/29/2024 09:07:55 hemoglob in A1C, fingerst ick [address] Endocrinology , [address] [place] [address], [phone], 02/29/2024 09:07:55 lipid panel, serum [address] [facility], [address] [place] [address], [phone], 04/16/2024 10:18:14 surgical patholog y study 2023 024 [facility], [address] [place] [address], [phone], 02/29/2024 12:38:35 microalb umin/cre atinine, mass ratio, urine [email or web address] [place] [address] Laboratory, [address] [place] [address], [id number], 12/13/2023 16:23:28 CMP, serum or plasma [email or web address] [facility], [address] [place] [address], [id number], 12/13/2023 16:23:29 glucose, fingerst ick, blood 2023 024 [facility], [address] [place] [address], [phone], 11/15/2023 16:07:37 hemoglob in A1C, fingerst ick [address] [facility], [address] [place] [address], [id number], 11/15/2023 15:32:31 lipid panel, serum [email or web address] [facility], [address] [place] [address], [phone], 12/13/2023 16:23:[address] referral 2023 024 Katharine Gallardo DPM, [address] [facility] , [facility], [place], [address], 06/20/2024 11:20:48 physical therapis t referral 2023 024 [email or web address] 1 [facility], [address], [place], [address], 05/30/2024 08:41:[address] referral 2023 024 [email or web address] [facility] Podiatry, [address], [place], [address], 02/08/2024 10:55:43 nutritio nist/ titian referral 2023 024 [email or web address] [facility] Nutritional/Di etitian Counseling, [address], [place], [address], 02/08/2024 10:55:44 Procedures None recorded . Surgeries None recorded . Imaging None recorded . Medication Orders gabapent in 300 mg capsule 2024 025 [facility], [address] [place] [address] 2, [place], [address], 08/28/2024 17:11:25 gabapent in 400 mg capsule 2024 025 [facility], [address] [place] [address] 2, [place], [address], 08/28/2024 17:11:28 Farxiga 5 mg tablet [address], [address] [place] [address] 2, [place], [address], 02/29/2024 09:07:55 Toujeo Max U-300 SoloStar 300 unit/mL (3 mL) subcutan eous insulin pen [address], [address] [place] [address], [facility] 2, [place], [address], 02/29/2024 09:07:55 Humalog Mix 75-25 KwikPen U-100 insulin 100 unit/mL subcutan eous pen [address], [address] [place] [address], [address], [place], [address], 02/29/2024 09:07:55 Farxiga 5 mg tablet [address], [address] [place] [address], [address], [place], [address], 11/15/2023 15:32:28 Toujeo Max U-300 SoloStar 300 unit/mL (3 mL) subcutan eous insulin pen [address], [address] [place] [address], [address], [place], [address], 11/15/2023 15:32:28 Humalog KwikPen U-200 Insulin 200 unit/mL (3 mL) subcutan eous 2023 024 [facility], [address] [place] [address], [address], [place], [address], 11/15/2023 15:39:27 Patient TargetsNo targets recorded. Patient Instructions Encounter Date Encounter Id Patient Instructions Last Modified By Organization Details Last Modified Time 11/15/2023 [id number] medical record request* - Most recent diabetic eye exam [email or web address] Not available 02/02/2024 08:38:56 02/27/2024 [id number] Risks/Benefits/O pti ons/Side Effects of diagnosis and treatment discussed. UV protection and signs of skin cancer discussed [email or web address] Not available 02/14/2024 12:06:55 02/28/2024 [id number] medical record request* - Any lab work patient has gotten over the last 6 months. [email or web address] Not available 03/29/2024 11:39:46 02/28/2024 [id number] CATEGORY DESCRIPTION MINUTES Prepare to see the patient (e.g. review of tests) Obtain/review separately obtained history Perform medically appropriate exam/evaluation Order medications, tests, or procedures Senior Systems Engineer/educate the patient/family/career orientation teacher Refer/communicate w/other healthcare professionals Document clinical information into health record Non-billable independent interp of results Non-billable care coordination TOTAL TIME 64694 (15-29) 21300 (30-44) 98813 (45-59) 18419 (60-74) 67949 (10-19) 34110 (20-29) 90149 (30-39) 26826 (40-54) 40 [email or web address] Not available 02/28/2024 14:55:39 08/28/2024 [id number] The patient's management plan involves exploring physical [...] into the health record, in minutes: 42 83440 (10-19) 39514 (20-29) 76645 (30-39) 60529 (40-54) Not available 08/28/2024 17:11:17 Reason for Referral Rn Visiting Referral for Unco ntrolled type 2 diabetes mellitus Referring Physician: Roseanna Amato, Endocrinology, Encounter Date: 11/15/2023 Relocation Specialist/dietitian Refer ral for Uncontrolled type 2 diabetes mellitus Referring Physician: Roseanna Amato, Endocrinology, Encounter Date: 11/15/2023 Rn Visiting Referral for Unco ntrolled type 2 diabetes mellitus Referring Physician: Roseanna Amato Endocrinology, Encounter Date: 02/28/2024 Physical Therapist Referral for Lumbosacral radiculopathy chronic L5/S1 radiculopathy with L5/S1 grade 2 listhesis and low back pain. .Goal reduce back pain Referring Physician: Giselle Inman, Phys. Med. & Rehab., Encounter Date: 02/28/2024 Results Created Date Observation Date Name Description Value Unit Range Abnormal Flag Note LastModifiedBy Organization Detail LastModifiedTime 11/15/19 24 11/15/2023 gluco se, finge rstic k, blood glucose, fingerstick 219 mg/dL 70 - 100 Not Available [facility] Endocrinology [address] [place], [address], 11/15/2023 14:19:52 11/15/19 24 11/15/2023 hemog lobin A1C, finge rstic k hemoglobin A1C % 7.0 % 4.0 - 5.6 Not Available [facility] [address] [place], [address], 11/15/2023 14:20:02 02/27/20 24 02/27/2024 SURGI STERLING surgical SEE BELOW normal Surgi sterling Patho logy Repor t NAME: BRANT PEREZ PATH: SC-24 -1363 3 DATE of : 01/13 30 Copy to: Diagn osis: Left knee: Infla med and irrit ated sebor rheic kerat osis. SOURC E OF SPECI MEN: SKIN BIOPS Y, LEFT KNEE CLINI STERLING INFOR MATIO N: D48.5 R/O VERRU COUS KERAT OSIS vs SCC Gross Descr iptio n: Guy gusman name and date of verif ied. Recei carlita in forma andreas label ed with the guy nt's name and desig nated left knee is a shave biops y of skin (1.0 x 1.0 x 0.5 cm). The epide rmal surfa ce is white , rough ened and friab le with a verru coid appea demetria . The jamil n is inked blue. The speci men is trise cted and entir tila submi tted in one casse tte label ed A1. ARONB 02/27 09:52 AM Micro scopi c Descr iptio n: A micro scopi c exami natio n has been perfo rmed and the resul t(s) are as noted above . DEA JARVIS M.D. Anastasia d Out Date: 02/28 12:38 Page 1 of 1 Not Available [facility] Laboratory [address] [place] [address], [address], 02/29/2024 12:38:35 02/28/20 24 02/28/2024 hemog lobin A1C, finge rstic k hemoglobin A1C % 7.1 % 4.0 - 5.6 Not Available [facility] [address] [place], [address], 02/24/2024 14:12:26 02/28/20 24 02/28/2024 gluco se, finge rstic k, blood glucose, fingerstick 393 mg/dL 70 - 100 Not Available [facility] [address] [place], [address], 02/24/2024 14:12:25 Result Notes None recorded. Problems Name Problem SNOMED Code Status Onset Date Resolution Date Notes Provider Name and Address Organization Details Recorded Time Actinic keratosis 576908619 Active 2015 From Automated Load;Provi nahid: Ezequiel Islas;Shakila tus: Active Not Available [facility] 7 08:12:33 Hemangiom a 949547851 Active 2014 From Automated Load;Provi nahid: Michael Pacheco atus: Active Not Available [facility] 6 05:12:51 [place] Active 2014 From Automated Load;Provi nahid: Michael Pacheco atus: Active Not Available [facility] 6 05:12:51 Senile hyperkera zafar 550114596 Active 2014 From Automated Load;Provi nahid: James PachecoCorey tamiko: Active Not Available [facility] 6 05:12:51 Problem Notes Documentation Provider Name and Address Organization Details Recorded Time Endocrinology Consult Note : [facility] [address] [place] [id number], Marc D (id #[id number], : 1945) [facility] [address] [place] [address] Date: 11/15/2023E: Brant Alvarado, : 1945, PT ID #[id number] Tutt MD, I would like to thank you for referring Brant Alvarado to our practice for consultation and evaluation. I have enclosed a copy of the office evaluation for your records. Sincerely, Electronically Signed by: ROSEANNA AMATO APRN, Andreaountzuri Reason/DateNone recorded 11/15/2023 - 02:30PM - ENDOCRINOLOGY [facility] History of Present IllnessMark is a 78-year-old male who presents office today after referral for diabetes management. Patient states his A1c has consistently been less than 8% over the last couple years, however he is currently taking a large amount of insulin. Patient states he is currently being followed by [facility] med and rehab physician for severe diabetic neuropathy. Patient states he currently checks his blood sugar 2-3 times a day at home with readings ranging anywhere from 80-180. He denies any symptoms, or episodes of hypoglycemia. Past medical history significant for metastatic prostate cancer, diabetic neuropathy, hypertension, hyperlipidemia.Review of Systems Patient reports no constitutional symptoms. He reports no eye symptoms. He reports no ENMT symptoms. He reports no cardiovascular symptoms. He reports no respiratory symptoms. He reports no gastrointestinal symptoms. He reports no genitourinary symptoms. He reports no musculoskeletal symptoms. He reports no skin symptoms. He reports no neurological symptoms. He reports no endocrine symptoms. Physical ExamConstitutional:General Appearance: no pain or signs of discomfort and healthy-appearing, well-developed, not difficult to engage, andmorbidly obese. Level of Distress: no acute distress. Eyes:Pupils: PERRLA. Extraocular Movements: EOMI. Neck:Thyroid: no enlargement, nodules, or thyroid bruit and non-tender. Neck Vessels: no carotid bruits or jugular vein distention. Lymph Nodes: no anterior cervical LAD, posterior cervical LAD, or submandibular LAD. Lungs:Auscultation: breath sounds normal, good air movement, and clear to auscultation. Cardiovascular:Apical Impulse: not displaced. Heart Auscultation: normal S1 and S2 and RRR. Right Pulses: normal dorsalis pedis pulse. Left Pulses: normal dorsalis pedis pulse. Abdomen:Inspection: soft and non-distended. Bowel Sounds: normal. Palpation: no masses, CVA tenderness, or tenderness (no guarding, no rebound). Liver: non-tender. Spleen: non-tender. Extremities:Extremities: no cyanosis, edema, or ulcers. Pulses: dorsalis pedis normal. Skin: no dry or cracked skin. Neurologic:Reflexes: DTRs 2+ bilaterally throughout. Sensation: monofilament normal on the right and the left. Motor Right: normal motor strength. Motor Left: normal motor strength. Sensation Right Foot: normal monofilament wire test, sensation on the dorsum of the foot, and protective sensation and sensation intact. Sensation Left Foot: normal monofilament wire test, sensation on the dorsum of the foot, and protective sensation and sensation intact. Psychiatric:Insight: good judgement and insight. Mental Status: normal mood and affect and active and alert. Orientation: to time, place, and person. Memory: recent memory normal and remote memory normal. Foot Exam::Right Foot: right foot was examined and toes were examined; no deformity, interdigital erythema, or nail changes or disorders; and digital hair present right and normal motion. Left Foot: left foot was examined and toes were examined; no deformity, interdigital erythema, or nail changes or disorders; and digital hair present left and normal motion. Skin:Right Lower Extremity: normal. Left Lower Extremity: normal.Procedure DocumentationNone recordedAssessment/Plan1. Type II diabetes mellitus uncontrolled-In the office today A1c 7%.Random tnouh-gd-varj blood glucose of 219 in the office today. Goal A1c is less than 7%Goal blood glucose: Before meals and upon awakenin-130. 1-2 After meals or at bedtime: < 180. Discussed in detail the consequences of uncontrolled hyperglycemia in the form of microvascular complications such as diabetic retinopathy, worsening of diabetic nephropathy, diabetic neuropathy and macrovascular complications such as coronary artery disease, peripheral arterial disease and stroke.Educated on the importance of dietary carbohydrate consistency and restriction and not to exceed 45 g of carbohydrate per meal and 15-30 g per snack if needed.Educated on signs and symptoms of hypoglycemia, and what to do if patient is effected by it including: Blood glucose less than 70, drink 6 ounces of soda/juice, glucose and recheck 15 minutes later. If blood glucose still less than 70 repeat until above 70. Once greater than 70 follow-up with octavio. Recommendations:Will obtain routine labs, orders placed and printed for patient.Continue Farxiga 5 dailyContinue Toujeo 76 units at bedtimeContinue Humalog 100 units twice a dayFollow-up in 3 monthsPodiatry consult Diabetic nutrition consult Eye exam: Patient states he is up-to-date and negative for diabetic retinopathy with Dr. Garcia in [place]. Records have been requested.10 g monofilament test: Performed and unremarkable. Podiatry consult has been placed for nail clipping per patient request in [place].Medical Nutrition therapy: Consult placed at today's blcnbJ48.65: Type 2 diabetes mellitus with hyperglycemia MICROALBUMIN/CREATININE RATIO CMP GLUCOSE, FINGERSTICK, BLOOD HEMOGLOBIN A1C, FINGERSTICK Farxiga 5 mg tablet - Take 1 tablet(s) every day by oral route for 30 days. Qty: (90) tablet Refills: 0 Pharmacy: [facility] CAVITY PUMP OPERATOR REFERRAL - Schedule Within: provider's discretionPlace of service: OFFICE # of requested visits: 6 Procedure code: 37566, 28102, 64951, 90145, 29596, 82833, 49909, 94284, 26686, 72134 Authorization: [place] (Medicare[place] for [address], [address], [address], 98[address], [address]169, 77897, 90805, 58914, 64527, 44203Truuzviyneizl: AARP (Medicare Supplement) NOTREQUIRED Not Required for , 11787, 22889, 50032, 33497, 58539, 61410, 66273, 25268, 73503 SENIOR ACCOUNTANT/DIETITIAN REFERRAL - Schedule Within: provider's discretionPlace of service: OFFICE # of requested visits: 6 Procedure code: 86402 Authorization: [place] (Med[place] NOTREQUIRED Not Required for [address]Dstoozffcadkg: AARP (Medicare Supplement) [place]REQUIRED [place] [address] MEDICAL RECORD REQUEST* - Note to Provider: Most recent diabetic eye exam Declined, Treatment changed - insulin aspart (niacinamide)(U-100) 100 unit/mL (3 mL) subcu cartridge - Inject 100 unit(s) twice a day by subcutaneous route for 30 days. Qty: (180) mL Refills: 0 Pharmacy: [facility] Toujeo Max U-300 SoloStar 300 unit/mL (3 mL) subcutaneous insulin pen - Inject 76 unit(s) every day by subcutaneous route for 30 days. Qty: (24) mL Refills: 2 Pharmacy: [facility] Humalog KwikPen U-200 Insulin 200 unit/mL (3 mL) subcutaneous - Inject 100 unit(s) twice a day by subcutaneous route for 30 days. Qty: (90) mL Refills: 3 Pharmacy: [facility] Note to Pharmacy: Please disregard the insulin aspart U100 subcutaneous cartridge. Patient needs the Humalog KwikPen. BD ULTRA-FINE SHORT PEN NEEDLE 31 GAUGE X 5/16 - Use as directed inject insulin 3 times a day. Qty: 1 Unit Refills: 3 Supplier: N/A 2. Peripheral neuropathy due to type 2 diabetes mellitus-Patient currently taking gabapentin 400 mg daily per PCP. Patient states this dose was increased recently and he is doing better with his symptoms.E11.42: Type 2 diabetes mellitus with diabetic polyneuropathy 3. Essential hypertension-Goal BP less than 140/90BP in office today 126/78Continue current bisoprolol, hydrochlorothiazide, losartan daily as prescribed by PCP.Continue BP monitoring at home.I10: Essential (primary) hypertension 4. Hyperlipidemia-Orders for fasting lipid panel has been placed and printed for patient to have obtained.Continue current rosuvastatin 40 mg, Zetia 10 mg therapy as prescribed by PCP.Patient states understanding of the above plan of care and with no questions or concerns at this time.E78.5: Hyperlipidemia, unspecified LIPID PANEL GLUCOSE, FINGERSTICK, BLOOD Result: -GLUCOSE, FINGERSTICK: mg/dl HEMOGLOBIN A1C, FINGERSTICK Result: -HEMOGLOBIN A1C %: 7.0% Return to Office KALPANA SAUCEDA PA-C for RECHECK at [facility] on 02/27/2024 at 02:45 PM GISELLE INMAN MD for RECHECK at PHYSICAL MEDICINE & REHABILITATION on 02/28/2024 at 02:00 PM ROSEANNA AMATO APRN for RECHECK at ENDOCRINOLOGY on 02/28/2024 at 03:00 PM to see DANIEL MCLAUGHLIN MD at [facility] on or around 06/05/2024 to see DANIEL MCLAUGHLIN MD at [facility] on or around 06/05/2024 Devonte Albert [facility] 11/16/2023 11:46:08 Pain Management Consult Note : [address] [address]IONMLEU, Marc D (id #[id number], : 1945) [address] [address] Encounter Summary - Progress Note Date Printed: 02/28/2024 Documents sent via fax will include the [...] received this fax in error, please visit [email or web address] to notify the sender and confirm that the information will be destroyed. If you do not have internet access, please call to notify the sender and confirm that the information will be destroyed. Thank you for your attention and cooperation. [ID:[id number]] Patient Brant Alvarado (79yo, M) #[id number] 1945 Patient Demographics: Address [address] [place] [address] [place] [address] Work Phone Encounter Notes: Encounter Reason/DateNone recorded 02/28/2024 - 02:00PM - PHYSICAL MEDICINE & REHABILITATION History of Present [id number]-brtr-zgy male here for follow-up. He has chronic diabetic polyneuropathy. He he would also like to discuss worsening chronic low back pain with known grade 2 L5 over S1 listhesis. He now reports some radiation of pain down the right leg from his back. He was seen by anesthesia pain locally and is planning to undergo a lumbar epidural soon. He had several questions regarding this including risks and potential benefits. He has never undergone outpatient physical therapy. Pain is in the lower back and bilateral. It occasionally radiates into the right buttock and down into the right leg distally. He was prescribed gabapentin 300 mg in the morning, 400 in the afternoon, and 300 at night. He decided to increase the afternoon dose from 400 to 800 mg on his own due to severe burning pain in his foot that usually begins around 4 to 7 PM. He also takes THC at night to help with pain and sleep. He was also prescribed a compounding cream which is mildly helpful. Glucose levels are improving. Review of SystemsNone recorded Vitals Ht: 5 ft 9 in Rkcnei1902/28/2024 02:11 pm Wt: 225 lbs With indculg9402/28/2024 02:13 pm BMI: 33. 02:13 pm BP: 132/76 sitting R arm02/28/2024 02:15 pm Pulse: 82 bpm02/28/2024 02:15 pm Results/InterpretationsNone recorded Physical ExamAmbulates with a slightly antalgic gait pattern. Overweight. No acute distress. He is able to stand up from a seated position without using his arms. Procedure DocumentationNone recorded Assessment and Plan1. Lumbosacral radiculopathy-Refer to PT to address back pain and to help centralize pain. Improve core stability and teach him a home exercise program to include stretching. He also is seeing pain physician locally and is planning to have a lumbar epidural soon.M54.17: Radiculopathy, lumbosacral region PHYSICAL THERAPIST REFERRAL - Schedule Within: provider's discretion Reason for Referral: chronic L5/S1 radiculopathy with L5/S1 grade 2 listhesis and low back pain. .Goal reduce back pain Place of service: OFFICE # of requested visits: 6 Procedure code: 34090, 30667, 33224 Authorization: [place] [address], [address], 18[address]Sclhmphfqzjah: AARP (Medicare Supplement) NOTREQUIRED [place] [address], [address], 00185 2. Lumbar hhqimqzdcjepaswboK22.16: Spondylolisthesis, lumbar region 3. 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 Follow-up in 6 months.E11.42: Type 2 diabetes mellitus with diabetic polyneuropathy 4. Arthropathy of lumbar facet wmonzD00.816: Spondylosis without myelopathy or radiculopathy, lumbar region Discussion Notes CATEGORYDESCRIPTIONMINUTES Prepare to see the patient (e.g. review of tests) Obtain/review separately obtained history Perform medically appropriate exam/evaluation Order medications, tests, or procedures Senior Systems Engineer/educate the patient/family/caregiver Refer/communicate w/other healthcare professionals Document clinical information into health record Non-billable independent interp of results Non-billable care coordination TOTAL TIME 59852 (15-29) 65256 (30-44) 18864 (45-59) 13525 (60-74) 30435 (10-19) 60687 (20-29) 05581 (30-39) 89642 (40-54) 40 Return to Office to see DANIEL MCLAUGHLIN MD at [facility] on or around 06/05/2024 to see DANIEL MCLAUGHLIN MD at [facility] on or around 06/05/2024 KALPANA SAUCEDA PA-C for NEW PATIENT at [facility] on 08/22/2024 at 02:30 PM GISELLE INMAN MD for RECHECK at PHYSICAL MEDICINE & REHABILITATION on 08/28/2024 at 02:00 PM Patient Medical History: Allergies List Reviewed Allergies AMLODIPINE: Swelling Medications Reviewed Medications NameDate Source cmdrtfljzpicb50/06/23 entered Alycia Vaughn [place] Mrgfmkh78/06/23 entered Winter Vaughn bisoprolol fumarate 5 mg tabletTake 1 tablet(s) every day by oral route.10/14/16 entered LYNDA PUCKETT APRN clobetasoL 0.05 % topical ointmentAPPLY A THIN LAYER TO THE AFFECTED AREA(S) OF POISON YOSSI BY TOPICAL ROUTE 2 TIMES PER DAY UP TO 2 WEEKS PRN FVGOWL12/30/23 prescribed JAMES PACHECO APRN dapagliflozin zhtunctzkac52/09/22 entered VANESA ROMANO Farxiga 5 mg tabletTake 1 tablet(s) every day by oral route for 30 days.11/15/23 prescribed ROSEANNA AMATO APRN fluorouraciL 5 % topical solutionAPPLY A SUFFICIENT AMOUNT TO COVER THE LESIONS IN THE AFFECTED AREA(S) PRECANCERS ON SCALP BY TOPICAL ROUTE QD X 3 WEEKS11/17/22 prescribed JAMES PACHECO APRN gabapentin 300 mg capsuleTake 1 capsule(s) twice a day by oral route.11/10/23 prescribed GISELLE INMAN MD gabapentin 400 mg capsuleTake 1 capsule(s) twice a day by oral route.01/17/24 prescribed GISELLE INMAN MD HumaLOG KwikPen U-200 Insulin 200 unit/mL (3 mL) subcutaneousInject 100 unit(s) 3 times a day by subcutaneous route for 30 days.11/17/23 prescribed ROSEANNA AMATO APRN HumaLOG U-100 Insulin 100 unit/mL subcutaneous solutionInject 100 unit(s) 3 times a day by subcutaneous route for 30 days.11/18/23 prescribed ROSEANNA AMATO APRN hydroCHLOROthiazide 25 mg tabletTake 1 tablet(s) every day by oral route.10/14/16 entered LYNDA PUCKETT APRN insulin aspart (niacinamide)(U-100) 100 unit/mL (3 mL) subcu cartridgeInject by subcutaneous route.10/27/21 entered VANESA ROMANO lidocaine 5 % topical ointmentAPPLY TO AFFECTED AREA(S) BY TOPICAL ROUTE 1-4 TIMES DAILY UMDAKS77/22/24 prescribed GISELLE INMAN MD aojdmdna27/09/22 entered VANESA ROMANO NexIUM 40 mg capsule,delayed releaseDaily Internal Note:Duration: 30 days;Frequency: daily;Medication Description: esomeprazole; Dosage:1; Route:oral; refills: entered jessica.243 predniSONE 10 mg tabletTake 1 tablet(s) every day by oral route.11/05/21 entered LISANDRA MONTERO PA-C Ejglavk31/09/22 entered VANESA ROMANO rosuvastatin 40 mg tabletTake 1 tablet(s) every day by oral route.12/07/17 entered Rhonda Cardozo Max U-300 SoloStar 300 unit/mL (3 mL) subcutaneous insulin penInject 76 unit(s) every day by subcutaneous route for 30 days.11/15/23 prescribed ROSEANNA AMATO APRN Zetia 10 mg tabletInternal Note:Medication Description: ezetimibe; Route:oral; refills: entered jessica.262 Family HistoryReviewed Family History Unspecified Relation - Family history of malignant neoplasm - lung, esophogeal - Heart disease Past Medical HistoryReviewed Past Medical History Arthritis:Y COPD:Y Cancer:Y Diabetes:Y Sleep Apnea:Y Vaccine HistoryNone recorded Electronically Signed by: GISELLE INMAN MD Maris Rowe [facility] 02/28/2024 15:08:18 Endocrinology Consult Note : [address] [address]JDPMQLN, Marc D (id #[id number], : 1945) [address] [address] Encounter Summary - Progress Note Date Printed: 02/29/2024 Documents sent via fax will include the [...] received this fax in error, please visit [email or web address] to notify the sender and confirm that the information will be destroyed. If you do not have internet access, please call to notify the sender and confirm that the information will be destroyed. Thank you for your attention and cooperation. [ID:[id number]] Patient Brant Alvarado (79yo, M) #[id number] 1945 Patient Demographics: Address [address] [place] [address] [address] [address] Work Phone Encounter Notes: Encounter Reason/DateNone recorded 02/28/2024 - 03:00PM - ENDOCRINOLOGY [facility] History of Present IllnessMark is an 79-year-old male presents office today for follow-up on diabetes management. Patient continues to maintain good glucose control with A1c of 7.1% at today's visit. He denies any symptoms or episodes of hypoglycemia. Patient is very adamant about my not sending in refills of medication today. Diabetic medications were thoroughly reviewed and confirmed with the patient. He does state compliance with current diabetic medication as well as lifestyle modification. Voices no questions or concerns at this time. Review of SystemsROS as noted in the HPI Vitals Ht: 5 ft 9 in02/28/2024 03:02 pm Wt: 225 lbs104/30/2023 03:02 pm BMI: 33.212 03:02 pm BP: 130/78 sitting R arm02/28/2024 03:04 pm Pulse: 80 bpm02/28/2024 03:05 pm Results/Interpretations GLUCOSE, FINGERSTICK, BLOOD Fasting: N Result: -GLUCOSE, FINGERSTICK: 393mg/dl HEMOGLOBIN A1C, FINGERSTICK Result: -HEMOGLOBIN A1C %: 7.1% Physical ExamConstitutional:General Appearance: no pain or signs of discomfort and healthy-appearing, well-nourished, well-developed, and not difficult to engage. Level of Distress: no acute distress. Neck:Thyroid: no enlargement, nodules, or thyroid bruit and non-tender. Neck Vessels: no carotid bruits or jugular vein distention. Lymph Nodes: no anterior cervical LAD, posterior cervical LAD, or submandibular LAD. Lungs:Auscultation: breath sounds normal, good air movement, and clear to auscultation. Cardiovascular:Apical Impulse: not displaced. Heart Auscultation: normal S1 and S2 and RRR. Abdomen:Inspection: soft and non-distended. Bowel Sounds: normal. Extremities:Extremities: no cyanosis, edema, or ulcers. Pulses: dorsalis pedis normal. Skin: no dry or cracked skin. Psychiatric:Insight: good judgement and insight. Mental Status: normal mood and affect and active and alert. Orientation: to time, place, and person. Memory: recent memory normal and remote memory normal. Procedure DocumentationNone recorded Assessment and Plan1. Uncontrolled type 2 diabetes mellitus-In the office today A1c 7.1%, up from 7%.Random soprg-xy-acek blood glucose of 393 in the office today. Goal A1c is less than 7%Goal blood glucose: Before meals and upon awakenin-130. 1-2 After meals or at bedtime: < 180.Re-discussed in detail the consequences of uncontrolled hyperglycemia in the form of microvascular complications and macrovascular complications.Patient was re-educated on the importance of dietary carbohydrate consistency and restriction and not to exceed 45 g of carbohydrate per meal and 15-30 g per snack if needed.Reiterated the signs and symptoms of hypoglycemia, and what to do if patient is effected by it. Recommendations:Routine lab orders were printed and given to patient at prior visit. Patient states that he had these completed at [facility]. Records have been requested.Continue Farxiga 5 dailyContinue Toujeo 76 units at bedtimeContinue Humalog 75/25, 100 units three times a dayFollow-up in 3 monthsPodiatry consult placed again at today's visit at [facility] podiatry. Eye exam: Patient states he is up-to-date and negative for diabetic retinopathy with Dr. Garcia in [place]. Records have been requested.10 g monofilament test: Performed and unremarkable. Podiatry consult has been placed for nail clipping per patient request in [place].Medical Nutrition therapy: Consult placed at prior gjzzkU32.65: Type 2 diabetes mellitus with hyperglycemia GLUCOSE, FINGERSTICK, BLOOD Fasting: N HEMOGLOBIN A1C, FINGERSTICK Farxiga 5 mg tablet - To be submitted on or around 02/29/2024 Take 1 tablet(s) every day by oral route for 30 days. Qty: (90) tablet Refills: 0 Pharmacy: [facility] CAV[facility] PUMP OPERATOR REFERRAL - Schedule Within: STATPlace of service: OFFICE # of requested visits: 6 Procedure code: 88064, 18027, 99793, 72196, 99788, 75586, 11555, 05387 Authorization: Medicare[place] (Medicare) [place]QU[place] for [address], 74412, 28011, 45433, 30083, 10916, 44309, 35836Tomovnfzxoloo: AARP (Medicare Supplement) NOTREQUIRED Not Required for 66490, 22493, 42504, 20867, 07771, 20770, 02006, 35979 Toujeo Max U-300 SoloStar 300 unit/mL (3 mL) subcutaneous insulin pen - To be submitted on or around 02/29/2024 Inject 76 unit(s) every day by subcutaneous route for 30 days. Qty: (24) mL Refills: 2 Pharmacy: [facility] BD ULTRA-FINE SHORT PEN NEEDLE 31 GAUGE X 5/16 - To be submitted on or around 02/29/2024 Use as directed inject insulin 3 times a day. Qty: 1 Unit Refills: 3 Supplier: [facility] Humalog Mix 75-25 KwikPen U-100 insulin 100 unit/mL subcutaneous pen - To be submitted on or around 02/29/2024 Inject 100 unit(s) 3 times a day by subcutaneous route before meal(s) for 30 days. Qty: (90) mL Refills: 2 Pharmacy: [facility] MEDICAL RECORD REQUEST* - Note to Provider: Any lab work patient has gotten over the last 6 months. 2. Peripheral neuropathy due to type 2 diabetes mellitus-Patient currently taking gabapentin 400 mg daily per PCP. Patient states this dose was increased recently and he is doing better with his symptoms.E11.42: Type 2 diabetes mellitus with diabetic polyneuropathy 3. Essential hypertension-Goal BP less than 140/90BP in office today 130/78Continue current bisoprolol, hydrochlorothiazide, losartan daily as prescribed by PCP.Continue BP monitoring at home.I10: Essential (primary) hypertension 4. Hyperlipidemia-Orders for fasting lipid panel has been placed and printed for patient to have obtained.Continue current rosuvastatin 40 mg, Zetia 10 mg therapy as prescribed by PCP.Patient states understanding of the above plan of care and with no questions or concerns at this time.E78.5: Hyperlipidemia, unspecified LIPID PANEL GLUCOSE, FINGERSTICK, BLOOD Fasting: N Result: -GLUCOSE, FINGERSTICK: 393mg/dl HEMOGLOBIN A1C, FINGERSTICK Result: -HEMOGLOBIN A1C %: 7.1% Return to Office ROSEANNA AMATO APRN for RECHECK at ENDOCRINOLOGY [facility] on 05/31/2024 at 02:00 PM to see DANIEL MCLAUGHLIN MD at [facility] on or around 06/05/2024 to see DANIEL MCLAUGHLIN MD at [facility] on or around 06/05/2024 KALPANA SAUCEDA PA-C for NEW PATIENT at [facility] 08/22/2024 at 02:30 PM GISELLE INMAN MD for RECHECK at [facility]IL[facility]ATION on 08/28/2024 at 02:00 PM Patient Medical History: Allergies List Allergies not reviewed (last reviewed 02/28/2024) AMLODIPINE: Swelling Medications Reviewed Medications NameDate Source akwvowrkbwupo64/06/23 entered [place] [facility] Gvizghf37/06/23 entered [facility] bisoprolol fumarate 5 mg tabletTake 1 tablet(s) every day by oral route.10/14/16 entered LYNDA PUCKETT APRN clobetasoL 0.05 % topical ointmentAPPLY A THIN LAYER TO THE AFFECTED AREA(S) OF POISON YOSSI BY TOPICAL ROUTE 2 TIMES PER DAY UP TO 2 WEEKS PRN MINJTG74/30/23 prescribed JAMES PACHECO APRN dapagliflozin dmunwfikgka06/09/22 entered VANESA ROMANO Farxiga 5 mg tabletTake 1 tablet(s) every day by oral route for 30 days.02/29/24 prescribed ROSEANNA AMATO APRN fluorouraciL 5 % topical solutionAPPLY A SUFFICIENT AMOUNT TO COVER THE LESIONS IN THE AFFECTED AREA(S) PRECANCERS ON SCALP BY TOPICAL ROUTE QD X 3 WEEKS11/17/22 prescribed JAMES PACHECO APRN gabapentin 300 mg capsuleTake 1 capsule(s) 4 times a day by oral route.02/28/24 prescribed GISELLE INMAN MD gabapentin 400 mg capsuleTake 1 capsule(s) twice a day by oral route.01/17/24 prescribed GISELLE INMAN MD HumaLOG KwikPen U-200 Insulin 200 unit/mL (3 mL) subcutaneousInject 100 unit(s) 3 times a day by subcutaneous route for 30 days.11/17/23 prescribed ROSEANNA AMATO APRN HumaLOG Mix 75-25 KwikPen U-100 insulin 100 unit/mL subcutaneous penInject 100 unit(s) 3 times a day by subcutaneous route before meal(s) for 30 days.02/29/24 prescribed ROSEANNA AMATO APRN HumaLOG U-100 Insulin 100 unit/mL subcutaneous solutionInject 100 unit(s) 3 times a day by subcutaneous route for 30 days.11/18/23 prescribed ROSEANNA AMATO APRN hydroCHLOROthiazide 25 mg tabletTake 1 tablet(s) every day by oral route.10/14/16 entered LYNDA PUCKETT APRN insulin aspart (niacinamide)(U-100) 100 unit/mL (3 mL) subcu cartridgeInject by subcutaneous route.10/27/21 entered VANESA ROMANO lidocaine 5 % topical ointmentAPPLY TO AFFECTED AREA(S) BY TOPICAL ROUTE 1-4 TIMES DAILY LBSVVS64/22/24 prescribed GISELLE INMAN MD qxxvwpke63/09/22 entered VANESA ROMANO NexIUM 40 mg capsule,delayed releaseDaily Internal Note:Duration: 30 days;Frequency: daily;Medication Description: esomeprazole; Dosage:1; Route:oral; refills: entered jessica.243 predniSONE 10 mg tabletTake 1 tablet(s) every day by oral route.11/05/21 entered LISANDRA MONTERO PA-C Lizvabk65/09/22 entered VANESA ROMANO rosuvastatin 40 mg tabletTake 1 tablet(s) every day by oral route.12/07/17 entered Rhonda Cardozo Max U-300 SoloStar 300 unit/mL (3 mL) subcutaneous insulin penInject 76 unit(s) every day by subcutaneous route for 30 days.02/29/24 prescribed ROSEANNA AMATO APRN Zetia 10 mg tabletInternal Note:Medication Description: ezetimibe; Route:oral; refills: entered jessica.262 Family HistoryFamily History not reviewed (last reviewed 02/28/2024) Unspecified Relation - Family history of malignant neoplasm - lung, esophogeal - Heart disease Past Medical HistoryPast Medical History not reviewed (last reviewed 02/28/2024) Acid Reflux (GERD):Y Arthritis:Y COPD:Y Cancer:Y Diabetes:Y High Cholesterol:Y High triglycerides:Y Skin Cancer:Y Sleep Apnea:Y Vaccine HistoryNone recorded Electronically Signed by: ROSEANNA AMATO APRN, CASE PICKER Nataliya Fernandez [facility] 02/29/2024 10:04:04 Physical Medicine And Rehabilitation Note : [address] [address]YVPFZAT, Marc D (id #[id number], : 1945) [address] [address] Encounter Summary - Progress Note Date Printed: [...] received this fax in error, please visit [email or web address] to notify the sender and confirm that the information will be destroyed. If you do not have internet access, please call to notify the sender and confirm that the information will be destroyed. Thank you for your attention and cooperation. [ID:[id number]] Patient Brant Alvarado (79yo, M) #[id number] 1945 Patient Demographics: Address [address] [facility] [place] [address] [address] Work Phone Encounter Notes: Encounter Reason/DateNone recorded [...] renal insufficiency. Patient tried epidural injection in [place]. Resulted in severe flare of pain and [...] 300 mg at night. Follow-up in 6 qvbycgA64.42: Type 2 diabetes mellitus with diabetic polyneuropathy gabapentin 300 mg capsule - Take 1 capsule(s) twice a day by oral route. Qty: (60) capsule Refills: 5 Pharmacy: [facility] Note to Pharmacy: This will be combined with 400mg at afternoon gabapentin 400 mg capsule - Take 1 capsule(s) every day by oral route. Qty: (30) capsule Refills: 5 Pharmacy: [facility] Note to Pharmacy: This script is [...] into the health record, in minutes: 42 [phone] (10-19) 10014 (20-29) 03101 (30-39) 43377 (40-54) Return to Office KALPANA SAUCEDA PA-C for NEW PATIENT at [facility] on 09/19/2024 at 02:30 PM GISELLE INMAN MD for RECHECK at PHYSICAL MEDICINE & REHABILITATION [facility] on 02/26/2025 at 02:00 PM Patient Medical History: Allergies List Reviewed Allergies AMLODIPINE: Swelling Medications Reviewed Medications NameDate Source kutszupntmoxc19/06/23 entered Alycia Vaughn [place] Ylojmoi05/06/23 entered [place] [facility] bisoprolol fumarate 5 mg tabletTake 1 tablet(s) every day by oral route.10/14/16 entered LYNDA PUCKETT APRN clobetasoL 0.05 % topical ointmentAPPLY A THIN LAYER TO THE AFFECTED AREA(S) OF POISON YOSSI BY TOPICAL ROUTE 2 TIMES PER DAY UP TO 2 WEEKS PRN UQZCNK68/30/23 prescribed JAMES PACHECO APRN dapagliflozin ezqgrgjtuee10/09/22 entered VANESA ROMANO Farxiga 5 mg tabletTake 1 tablet(s) every day by oral route for 30 days.02/29/24 prescribed ROSEANNA AMATO APRN fluorouraciL 5 % topical solutionAPPLY A SUFFICIENT AMOUNT TO COVER THE LESIONS IN THE AFFECTED AREA(S) PRECANCERS ON SCALP BY TOPICAL ROUTE QD X 3 WEEKS11/17/22 prescribed JAMES PACHECO APRN gabapentin 300 mg capsuleTake 1 capsule(s) twice a day by oral route. Note:take 300mg in morning and at night08/28/24 prescribed GISELLE INMAN MD gabapentin 400 mg capsuleTake 1 capsule(s) every day by oral route. Note:take 400mg at /10/25 prescribed GISELLE INMAN MD HumaLOG KwikPen U-200 Insulin 200 unit/mL (3 mL) subcutaneousInject 100 unit(s) 3 times a day by subcutaneous route for 30 days.11/17/23 prescribed ROSEANNA AMATO APRN HumaLOG Mix 75-25 KwikPen U-100 insulin 100 unit/mL subcutaneous penInject 100 unit(s) 3 times a day by subcutaneous route before meal(s) for 30 days.02/29/24 prescribed ROSEANNA AMATO APRN HumaLOG U-100 Insulin 100 unit/mL subcutaneous solutionInject 100 unit(s) 3 times a day by subcutaneous route for 30 days.11/18/23 prescribed ROSEANNA AMATO APRN hydroCHLOROthiazide 25 mg tabletTake 1 tablet(s) every day by oral route.10/14/16 entered LYNDA PUCKETT APRN insulin aspart (niacinamide)(U-100) 100 unit/mL (3 mL) subcu cartridgeInject by subcutaneous route.10/27/21 entered VANESA ROMANO lidocaine 5 % topical ointmentAPPLY TO AFFECTED AREA(S) BY TOPICAL ROUTE 1-4 TIMES DAILY SACUHX41/22/24 prescribed GSIELLE INMAN MD ohocknvq74/09/22 entered VANESA ROMANO NexIUM 40 mg capsule,delayed releaseDaily Internal Note:Duration: 30 days;Frequency: daily;Medication Description: esomeprazole; Dosage:1; Route:oral; refills: entered jessica.243 predniSONE 10 mg tabletTake 1 tablet(s) every day by oral route.11/05/21 entered LISANDRA MONTERO PA-C Uqwjine45/09/22 entered VANESA ROMANO rosuvastatin 40 mg tabletTake 1 tablet(s) every day by oral route.12/07/17 entered Rhonda Baker U-300 SoloStar 300 unit/mL (3 mL) subcutaneous insulin penInject 76 unit(s) every day by subcutaneous route for 30 days.02/29/24 prescribed ROSEANNA AMATO APRN Zetia 10 mg tabletInternal Note:Medication Description: ezetimibe; Route:oral; refills: entered jessica.262 Family HistoryReviewed Family History Unspecified Relation - Family history of malignant neoplasm - lung, esophogeal - Heart disease Past Medical HistoryReviewed Past Medical History Anemia:Y Arthritis:Y Back Pain:Y COPD:Y Cancer:Y Diabetes:Y Kidney Disease:Y Neuropathy:Y Prostate Problems:Y Serious Illness or Injuries:Y Sleep Apnea:Y Vaccine HistoryNone recorded Electronically Signed by: GISELLE INMAN MD Haylie castillo [facility] 08/29/2024 08:57:22 Procedures Surgical History Date Name Laterality Status Provider Name and Address Organization Details Recorded Time 09/20/19 25 Destruction Premalignant Lesion(s) cancelled Dorinda Lopesy [facility] 08/22/2024 08:25:44 02/27/20 24 Biopsy Skin Lesion; Tangential completed Arielle Villanueva [facility] 02/27/2024 15:05:06 02/27/20 24 Skin Tag Removal completed KALPANA SAUCEDA PA-C [address] [place], [address], [facility] 02/27/2024 16:09:27 02/27/20 24 Destruction Premalignant Lesion(s) completed Arielle Villanueva [facility] 02/27/2024 15:17:40 02/27/20 24 Destruction BN Lesions completed Arielle Villanueva [facility] 02/27/2024 15:00:26 10/03/19 24 Suture/Staple removal cancelled Nidia Bonilla [facility] 09/29/2023 16:38:25 09/21/19 24 Wound Repair; Intermediate completed Dione Hill [facility] 09/21/2023 16:10:17 09/21/19 24 Excision MN Lesion ([place]ud[place]ina); trunk, arm, leg completed BRAYDON BROWER DO [address] [place], [address], [facility] 09/21/2023 17:52:02 08/25/19 24 Biopsy Skin Lesion; Tangential completed JAMES PACHECO APRN [address] [place], [address], [facility] 08/25/2023 15:36:35 08/25/19 24 Destruction Premalignant Lesion(s) completed JAMES PACHECO APRN [address] [place], [address], [facility] 08/25/2023 15:35:44 08/08/19 24 Electromyography (EMG) with Nerve Conduction Study (NCV) completed GISELLE INMAN MD [address] [place], [address], [facility] 08/08/2023 17:42:50 02/24/20 23 Destruction Premalignant Lesion(s) completed [facility] 02/23/2023 15:43:23 11/18/19 23 Biopsy Skin Lesion; Tangential completed [facility] 11/17/2022 12:07:30 11/18/19 23 Destruction Premalignant Lesion(s) completed [facility] 11/17/2022 12:07:01 11/18/19 23 Destruction BN Lesions completed [facility] 11/17/2022 12:06:59 08/25/19 23 Destruction MN Lesion; scalp, neck, hand, foot, genitalia completed JAMES PACHECO, NUCLEAR LICENSING ENGINEER [address] [place], [address], [facility] 08/25/2022 14:34:09 08/25/19 23 Destruction Premalignant Lesion(s) completed JAMES PACHECO, NUCLEAR LICENSING ENGINEER [address] [place], [address], [facility] 08/24/2022 16:37:21 08/25/19 23 Destruction BN Lesions completed Jami Kessler [facility] 08/24/2022 14:57:25 11/07/19 22 Injection Joint/Bursa, Major completed Fabian SAUCEDA PA-C [address] [place], [address], [facility] 11/06/2021 15:18:54 08/21/19 22 Destruction Premalignant Lesion(s) completed [facility] 08/20/2021 11:51:35 12/17/19 18 Biopsy Prostate, Needle w/Transrectal US completed TRACY MINOR MD [address] [place], [address], [facility] 12/16/2017 10:40:55 05/02/19 18 Wound Repair; Intermediate completed BRAYDON BROWER DO [address] [place], [address], [facility] 05/02/2017 17:49:13 05/02/19 18 Excision BN lesion; trunk, arms or legs completed BRAYDON BROWER, [address] [place], [address], [facility] 05/02/2017 17:49:11 10/15/19 17 Destruction MN Lesion; trunk, arm, leg completed BRAYDON BROWER, [address] [place], [address], [facility] 10/14/2016 17:50:02 Other completed Haylie Wolfe [facility] 11/28/2017 13:39:11 Knee arthroscopy/surgery completed Rhonda Tate [facility] 12/07/2017 10:48:50 Imaging Results None recorded. Procedure Notes None recorded. Medical Equipment None Reported. Allergies Allergen ID Allergen Name Allergen Category Reaction Reaction Severity Criticality Documentation Date Start Date Code Code System Note Provider Name and Address Organization Details Recorded Time 793813 amlodipin e medicatio n swelling Not available Not available 08/20/2021 79593 RxNorm [facility] [place] 11:40:46 Medications Name Sig Start Date Stop [...] LAYER TO THE AFFECTED AREA(S) OF POISON YOSSI BY TOPICAL ROUTE 2 TIMES PER DAY [...] 175.26 cm 70 /min 128/76 mm[Hg] [facility] 14:06:04 Date Recorded Body height Body mass index (BMI) Body weight Heart rate Systolic And Diastolic Provider Name and Address Organization Details Last Updated DateTime 11/15/2023 175.26 cm 33.1 kg/m2 937047.7 9 g 66 /min 126/78 mm[Hg] Eileenmariajose Asher [facility] 11/15/2023 14:16:04 Date Recorded Body height Body mass index (BMI) Body weight Heart rate Systolic And Diastolic Provider Name and Address Organization Details Last Updated DateTime 02/28/2024 175.26 cm 33.2 kg/m2 909519.2 8 g 80 /min 130/78 mm[Hg] Pau Normanette [facility] 02/28/2024 15:04:58 Date Recorded Body height Body mass index (BMI) Body weight Heart rate Systolic And Diastolic Provider Name and Address Organization Details Last Updated DateTime 02/28/2024 175.26 cm 33.2 kg/m2 749051.2 8 g 82 /min 132/76 mm[Hg] [facility] 02/28/2024 14:15:45 Social History Question Answer Notes LastModified by [employer] Details LastModified Time Tobacco Smoking Status Current Every Day Smoker LYNDA PUCKETT, NUCLEAR LICENSING ENGINEER [address] [place], [address], [facility] 10/14/2016 10:10:00 Marital Status Informatio n [...] Arrhythmia N Emphysema N Head Trauma/Injury N Depression N COPD Y Pneumonia N Prostate Problems Y Cancer Prostate Y Gastrointestinal Disease N Paralysis N Anxiety Disorder N Autoimmune disease N Vision or Eye Problems N Arthritis Y Blood Clot N Acid Reflux (GERD) Y Cancer Y Melanoma N Stroke N Crohn's Disease N Leg or Foot Ulcers N Skin Cancer Y Arrhythmia N Rheumatoid Arthritis N Fibromyalgia N Headaches N Kidney Disease Y Heart Problems N Squamous Cell Carcinoma Y Hospitalizations N Black Lung N Gallbladder Disease N Migraines N Kidney or Bladder Problems N Goiter N Acne N Skin Problems N Nervous Breakdown N Joint Pain N Neck Pain N Urinary Problems N Brain Injury N Ulcers N Osteopenia N Other Skin Condition Y Rheumatic Fever N Bleeding Disorder N Tuberculosis N AIDS/HIV N Cataract N Asthma N Amputation N Peripheral Vascular Disease N Sleep Disorder N Hepatitis N Neuropathy Y Thyroid Disease N Hernia N Ostomy N Glaucoma N Hypothyroidism N Lung Disease N Thyroid nodule mass N Pacemaker N Vascular Disease N Anesthesia Complications N Spasticity N Varicose Veins N Hypercalcemia N Esophagus/swallowing trouble N Shingles N Serious Illness or Injuries Y Hypoglycemia N Thyroid cyst N Alcohol Overuse/Alcohol Abuse N High Cholesterol Y Liver Disease N Allergies/Hayfever N Parkinson's Disease N Falls N Thyroid Problems N ADD/ADHD N Osteoporosis/Osteopenia N Anemia Y Chest Pain N Back Pain Y Stomach trouble N Colon Polyps N Heart Attack ([place]) N Mental Illness N Diabetes Y High triglycerides Y Seizures/Epilepsy N Congestive Heart Failure (CHF) N Hyperlipidemia N Eczema N Diverticulitis N Abuse/Domestic Violence N Ankylosing Spondylitis N Epilepsy/Seizures N Basal Cell Carcinoma Y Sleep Apnea Y Aneurysm N Heart Disease N Hypertension N Osteoporosis N Past Encounters Encounter ID Performer Location Encounter Start Date Encounter Closed Date Diagnosis/Indication Diagnosis SNOMED-CT Code Diagnosis ICD10 Code Diagnosis Note [id number] BRAYDON BROWER DO [facility] [address] [place] [address] 10/14/2016 09:55:10 10/15/2016 11:49:38 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 Benign Reassuranc e'sunscree n and hat 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 L82.1 Benign Reassuranc e 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 Leave the bandage on for 24 hrs. Clean the area daily with warm soapy water, and apply polysporin ointment and a bandaid once daily until healed. Call the office if any increase in redness, drainage, or pain.f/u 6 months for FSE [id number] BRAYDON BROWER DO [facility] [address] [place] [address] 04/13/2017 10:08:59 04/14/2017 11:32:01 Solar lentiginosis 684614175 L81.4 Benign Reassuranc e'sunscree n and hat 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 8017135 L82.1 Benign Reassuranc e Senile angioma [id number] I 78.1 Benign Reassuranc e Stasis dermatitis 834673 05 I87.2 discussed diagnosis and treatment plan with Freddie juarez is likely contributi ng to condition- he will talk to pcp about a chanehe can continue the triamcinol one cream on these areas after the infection has cleared on right leg History of malignant basal cell neoplasm of skin 339663354 Z85.828 L anterior shouldersc ar - no recurrence History of squamous cell carcinoma of skin 644370037 Z85.828 right upper chestscar - no recurrence 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 back and flanksdisc ussed diagnosis and treatment plan with patientthe TAC cream will help with itching and the condition is likely toresolve after the weather changesf/u prn Epidermoid cyst of skin 838912908 L72.0 right upper posterior legdiscuss ed with patient this area looks inflamed and possibly starting to be infected todayrecom mend he take the Keflex as directed for leg, should also help this and f/u in two weeks forexcisio nf/u as scheduled Cellulitis of lower limb 562790702 L03.119 likely secondary to scratching stasis dermatitis discussed with patientr/a /b of Keflex discussedc all the office if does not resolve or worsens in the next few daysf/u prn [id number] BRAYDON BROWER, DO [facility] [address] [place] [address] 05/02/2017 14:41:36 05/03/2017 08:03:58 Epidermoid cyst 611929218 L72.0 R upper posterior leg Discussed diagnosis recommend treatment with excision r/a/b of procedure discussed with patient informed consent signed see procedure note f/u 2 weeks for wound check / suture removal Wound care discussed with patient. Leave the bandage on for 24 hrs. Clean the area daily with warm soapy water, and apply polysporin ointment and a bandaid once daily until healed. Call the office if any increase in redness, drainage, or pain. Cellulitis of lower limb 585994294 L03.119 no cellulitis of LE today much improved I gave him another rx for keflex due to the area of excision at buttock, higher risk of infection. Skin sensa tion disturbance 81265177 R20.9 cyst [id number] DANIEL MCLAUGHLIN MD SURGERY SCHEDULE [address] [place] [address] 07/04/2017 07:22:58 07/04/2017 07:23:07 [id number] DANIEL MCLAUGHLIN MD SURGERY SCHEDULE [address] [place] [address] 07/27/2017 10:18:57 07/27/2017 10:19:[id number] MD [facility] [address] [facility] [address] [address] [place] [address] 11/28/2017 12:51:53 12/02/2017 11:47:19 Cervical radiculopathy 57953466 M54.12 Time spent reviewing images, discussing the diagnosis and coordinati ng care: 30 min [id number] TRACY MINOR MD UROLOGY [facility] [address] [place] [address] 12/07/2017 10:43:04 12/07/2017 12:49:08 Prostate specific antigen above reference range 210779307 R97.20 [id number] TRACY MINOR MD UROLOGY [facility] [address] [place] [address] 12/16/2017 09:48:33 12/16/2017 11:10:49 Prostate specific antigen above reference range 960372716 R97.20 [id number] TRACY MINOR MD UROLOGY [facility] CLOS[facility] [address] [place] [address] 1 01/02/2018 15:50:19 01/04/2018 14:06:45 Malignant neoplasm of prostate 022915404 C61 [id number] DANIEL MCLAUGHLIN MD SURGERY SCHEDULE [address] [place] [address] 1 02/14/2018 12:33:21 02/14/2018 12:33:48 [id number] EZEQUIEL ISLAS MD [facility] [address] [facility],[address] [place] [address] 06/06/2018 15:32:43 06/06/2018 16:21:56 History of malignant basal cell neoplasm of skin 051661512 Z85.828 L anterior shouldersc ar - no recurrence History of squamous cell carcinoma of skin 820778723 Z85.828 right upper chestscar - no recurrence Lentigo 131026483 L81.4 Reassuranc e and education regarding the disorder and options. 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 4359480 L82.1 Reassuranc e and education regarding the disorder and options. Hemangioma 807786125 D18 .00 Reassuranc e and education regarding the disorder and options. Lipoma 43059108 D17.9 Reassuranc e and education regarding the disorder and options. [id number] DANIEL MCLAUGHLIN MD SURGERY SCHEDULE [facility] [place] [address] 02/26/2019 11:20:49 02/26/2019 11:21:07 [id number] EZEQUIEL ISLAS MD [facility] [place] [address] [place] [address] 10/23/2019 14:48:45 10/23/2019 15:26:01 History of malignant basal cell neoplasm of skin 128012799 Z85.828 L anterior shouldersc ar - no recurrence History of squamous cell carcinoma of skin 784350972 Z85.828 right upper chestscar - no recurrence Lentigo 931955211 L81.4 Reassuranc e and education regarding the disorder and options. 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 5670170 L82.1 Reassuranc e and education regarding the disorder and options. Hemangioma 125743659 D18 .00 Reassuranc e and education regarding the disorder and options. Lipoma 05439687 D17.9 Reassuranc e and education regarding the disorder and options. 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 Hemangioma 776820931 D18 .00 BENIGN APPEARANCE , PT REASSURED Raised katie orrheic keratosis 1997047208 12602 L82.1 BENIGN APPEARANCE , PT REASSURED Multiple skin tags 71100 700 L91.8 BENIGN APPEARANCE , PT REASSURED [id number] DANIEL MCLAUGHLIN MD SURGERY SCHEDULE [address] [place] [address] 06/05/2021 13:32:06 06/05/2021 13:32:28 [id number] TABATHA STEPHENS [facility] [place] [address] [place] [address] 08/20/2021 11:37:58 08/20/2021 11:58:44 History of squamous cell carcinoma of skin 237314000 Z85.828 NO EVIDENCE OF REOCCURENC E RECOMMEND ANNUAL FSE History of malignant basal cell neoplasm of skin 483429783 Z85.828 NO EVIDENCE OF REOCCURREN CE RECOMMNEND ANNUAL FSE Solar lentiginosis 94682 2006 L81.4 BENIGN APPEARANCE , PT REASSURED RECOMMEND SUN PROTECTIVE CLOTHING AND EQUATE SPORT SUNSCREEN AND CERAVE AM SUNSCREEN LOTION OTC DAILY. Hemangioma 756933072 D18 .00 BENIGN APPEARANCE , PT REASSURED Raised katie orrheic keratosis 3547370817 82594 L82.1 BENIGN APPEARANCE , PT REASSURED Multiple skin tags 33744 7009 L91.8 BENIGN APPEARANCE , PT REASSURED Actinic keratosis 657521 007 L57.0 CRYO X 4RISKS OF CRYO SURGERY DISCUSSED; POST OP CARE INSTRUCTIO NS PROVIDED. VERBAL CONSENT TO TREAT GIVEN BY PATIENT. RECHECK IF ANY PERSISTING Multiple b enign melanocytic nevi 462619911 D22.9 BENIGN APPEARANCE , MONITOR AND RECHECK WITH CHANGE Seborrheic dermatitis 50 667666 L21.9 CLEAR TODAY CONTROLLED PT IS TREATING WITH TAC AND WILL CALL US IF HE NEEDS REFILLS [id number] LISANDRA MONTERO PA-C [facility] CLOS[facility] [address] [place] [address] 10/27/2021 14:58:26 10/27/2021 16:07:05 Pain of left knee joint 4674197621 02838 M25.562 Tear of la teral meniscus of knee 020186963 S83.282A Discussed pathology with patient and reviewed radiology. Cautioned on appropriat e use of oral medication s. Recommend conservati ve treatment at this time including rest, ICE, topical NSAID's. We discussed CSI, however patient did not want to proceed with this today as he does not think his symptoms are that severe. I will have him go to physical therapy for knee strengthen ing and stability as well as gait training. Follow-up in 6 to 8 weeks with Ramón Cramer for clinical recheck and decision of further imaging.He voiced understand ing and agreement with this plan. [id number] C ERIC SAUCEDA PA-C [facility] CL[facility] [address] [place] [address] 11/06/2021 14:03:22 11/06/2021 15:12:42 Osteoarthritis of knee 107980370 M17.9 Bilateral knee arthritis with an acute episode of pain on the left knee. We discussed the multitude of etiologies and knee replacemen t versus steroid. Fortunatel y patient agrees that steroid is the better option as that would be my strong recommenda tion. He was given injection today and he will follow-up when pain or buckling episodes recur [id number] JAMES PACHECO APRN [facility] [address] [place] [address] 08/24/2022 14:27:27 08/24/2022 15:00:25 History of squamous cell carcinoma of skin 135826155 Z85.828 NO EVIDENCE OF REOCCURENC E RECOMMEND ANNUAL FSE History of malignant basal cell neoplasm of skin 416921972 Z85.828 NO EVIDENCE OF REOCCURREN CE RECOMMNEND ANNUAL FSE Solar lentiginosis 34253 2006 L81.4 BENIGN APPEARANCE , PT REASSURED RECOMMEND SUN PROTECTIVE CLOTHING AND EQUATE SPORT SUNSCREEN AND CERAVE AM SUNSCREEN LOTION OTC DAILY. Hemangioma 232435854 D18 .00 BENIGN APPEARANCE , PT REASSURED Raised katie orrheic keratosis 9320560283 38976 L82.1 BENIGN APPEARANCE , PT REASSURED Multiple skin tags 76213 7009 L91.8 BENIGN APPEARANCE , PT REASSURED Actinic keratosis 668626 007 L57.0 CRYO X 4RISKS OF CRYO SURGERY DISCUSSED; POST OP CARE INSTRUCTIO NS PROVIDED. VERBAL CONSENT TO TREAT GIVEN BY PATIENT. RECHECK IF ANY PERSISTING Multiple b enign melanocytic nevi 240521105 D22.9 BENIGN APPEARANCE , MONITOR AND RECHECK WITH CHANGE Neoplasm o f uncertain behavior of skin 75934086 D48.5 R/O SCCLOCATIO N: RIGHT FRONTAL CROWNSHAVE BIOPSYEDC x 3 WAS DONEGEL FOAM/PRESS URE BANDAGESEE PROCEDURE NOTECONSEN T SIGNEDWOUN D CARE INSTRUCTIO NS PROVIDEDPH MAYA TAKENFOLLO W UP PER PATH AND 3 MONTHS RECHECK Onychomycosis 681608305 B35.1 DISCUSSED TX OPTIONSDEF ERS TX TODAY, ADVISED TO RTC WITH ANY CHANGES Inflamed s eborrheic keratosis 675034691 L82.0 CRYO X 2RISKS OF CRYO SURGERY DISCUSSED; POST OP CARE INSTRUCTIO NS PROVIDED. VERBAL CONSENT TO TREAT GIVEN BY PATIENT. PARMJIT IF PERSISTING . Squamous c ell carcinoma in situ of skin 158582304 D04.9 BIOPSY PROVEN LESION TREATED ABOVE [id number] JAMES PACHECO APRN [facility] [address] [place] [address] 11/17/2022 11:54:47 11/17/2022 12:31:19 History of squamous cell carcinoma in situ 0084933253 9105 Z86.008 NO EVIDENCE OF RECURRENCE RECOMMEND 6 MONTH FSE Solar lentiginosis 88595 2006 L81.4 BENIGN APPEARANCE , PT REASSURED RECOMMEND SUN PROTECTIVE CLOTHING AND EQUATE SPORT SUNSCREEN AND CERAVE AM SUNSCREEN LOTION OTC DAILY. Hemangioma 602296865 D18 .00 BENIGN APPEARANCE , PT REASSURED Raised katie orrheic keratosis 4134635015 40562 L82.1 BENIGN APPEARANCE , PT REASSURED Multiple skin tags 14915 7009 L91.8 BENIGN APPEARANCE , PT REASSURED Actinic keratosis 866934 007 L57.0 CRYO X 5RISKS OF CRYO SURGERY DISCUSSED; POST OP CARE INSTRUCTIO NS PROVIDED. VERBAL CONSENT TO TREAT GIVEN BY PATIENT. RECHECK IF ANY PERSISTING MULTIPLE SUPERFICIA L ON CROWN - PT WANTS TO TRY TOPICAL SINCE MULTIPLE CONTINUE TO FLARE WILL SURFACE TREAT AREASTART FLUOROURAC IL 5% SOLUTION IN FALL QD X3 WEEKS ON CROWN EXPECTED REACTION AND UV PROTECTION DISCUSSEDR ECHECK IN 3 MONTHS Neoplasm o f uncertain behavior of skin 71044706 D48.5 R/O SCCLOCATIO N: R LOWER FOREARMSHA VE BIOPSYEDC x 3 WAS DONEGEL FOAM/PRESS URE BANDAGESEE PROCEDURE NOTECONSEN T SIGNEDWOUN D CARE INSTRUCTIO NS PROVIDEDPH MAYA TAKENFOLLO W UP PER PATH Contact de rmatitis caused by urushiol from Eastern poison yossi L25.5 HX OF POSION YOSSI INTERMITTE NT FLARESREQU ESTS REFILL CLOBETASOL 0.05% OINTMENT BID UP TO 2 WEEKS PRN FLARE Inflamed s eborrheic keratosis 444780240 L82.0 CRYO X 1RISKS OF CRYO SURGERY DISCUSSED; POST OP CARE INSTRUCTIO NS PROVIDED. VERBAL CONSENT TO TREAT GIVEN BY PATIENT. PARMJIT IF PERSISTING . [id number] JAMES PACHECO APRN [facility] [address] [place] [address] 02/23/2023 15:29:53 02/23/2023 15:47:36 Actinic keratosis 743284054 L57.0 DISCUSSED TX OPTIONS - PT NEVER STARTED EFUDEX AFTER LAST VISITPT WANTS TO CRYO TODAYCRYO X 8RISKS OF CRYO SURGERY DISCUSSED; POST OP CARE INSTRUCTIO NS PROVIDED. VERBAL CONSENT TO TREAT GIVEN BY PATIENT. RECHECK IF ANY PERSISTING START FLUOROURAC IL 5% SOLUTION NEW LESIONS QD X3 WEEKS TO SPOT TREAT NEW PRECANCERS EXPECTED REACTION AND UV PROTECTION DISCUSSEDR ECHECK IN 6 MONTHS Scar 021131973 L90.5 HX VERRUCOUS KERATOSIS- BENIGN [id number] OSCAR VASQUEZ [facility] [address] [place] [address] 05/23/2023 08:28:49 05/24/2023 04:41:02 Low back pain 322865085 M54.50 Pain in right foot 69627 01066 71986 M79.671 [id number] GISELLE INMAN MD [facility] CLOSED [address] [place] [address] 08/08/2023 12:40:17 08/10/2023 10:51:01 Bilateral carpal tunnel syndrome 1527492055 2696845 G56.03 Patient already has wrist splints that were his 's. He has used them intermitte ntly throughout the years but never in a consistent manner. Recommend that he wear them at night consistent ly for 2 months. If no improvemen t in numbness or bracelet former strength, would consider surgical evaluation . 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 Recommend monitoring B12 levels through his primary care physician. He is already on supplement ation. Patient requests that his primary care physician consider referring him to endocrinol kvng for further management of his diabetes. Will alert his primary care physician of this request. Patient notes moderate and partial improvemen t in his pain but it continues to affect his sleep. Recommend changing his gabapentin from 100 mg 3 times daily to 200 mg at night only since his neuropathi c pain is only about bothersome at nighttime and affects his sleep. If he notes daytime pain, it can be changed to 100 mg twice daily with 200 mg at night. Will prescribe this dosage and follow-up in 2 months for both carpal tunnel symptoms and neuropathi c pain. [id number] TABATHA STEPHENS [facility] [address] [place] [address] 08/25/2023 14:22:43 08/25/2023 15:09:01 Scar 552856744 L90.5 HX VERRUCOUS KERATOSIS- BENIGN Actinic keratosis 430883 007 L57.0 DISCUSSED TX OPTIONS - PT NEVER STARTED EFUDEX AFTER LAST VISITPT WANTS TO CRYO TODAYCRYO X 1RISKS OF CRYO SURGERY DISCUSSED; POST OP CARE INSTRUCTIO NS PROVIDED. VERBAL CONSENT TO TREAT GIVEN BY PATIENT. RECHECK IF ANY PERSISTING PT HAS FLUOROURAC IL 5% SOLUTION ADVISED PT TO WAIT TO TREAT TIL FALL/WINTE R NEW LESIONSEXP ECTED REACTION AND UV PROTECTION DISCUSSEDR ECHECK IN 6 MONTHS Neoplasm o f uncertain behavior of skin 78972370 D48.5 ISK R/O SCCLOCATIO N: R WRISTSHAVE BIOPSYGEL FOAM/PRESS URE BANDAGESEE PROCEDURE NOTECONSEN T SIGNEDWOUN D CARE INSTRUCTIO NS PROVIDEDPH MAYA TAKENFOLLO W UP PER PATH Raised katie orrheic keratosis 9185450990 76140 L82.1 BENIGN APPEARANCE , PT REASSURED Solar lentiginosis 61930 2007 L81.4 BENIGN APPEARANCE , PT REASSURED RECOMMEND SUN PROTECTIVE CLOTHING AND EQUATE SPORT SUNSCREEN AND CERAVE AM SUNSCREEN LOTION OTC DAILY. Multiple skin tags 28659 7009 L91.8 BENIGN APPEARANCE , PT REASSURED Hemangioma 412027017 D18 .00 BENIGN APPEARANCE , PT REASSURED [id number] BRAYDON BROWER DO [facility] [address] [place] [address] 09/21/2023 15:08:53 09/21/2023 16:20:41 Squamous cell carcinoma of upper extremity 145863720 C44.622 right wristDiscu ssed diagnosis SCCrecomme nd treatment with excisionr/ a/b of procedure discussed with patientinf ormed consent signedsee procedure notef/u 10 days to 2 weeks for wound check / suture removalWou nd care discussed with patient. Leave the bandage on for 24 hrs. Clean the area daily with warm soapy water, and apply polysporin ointment and a bandaid once daily until healed. Call the office if any increase in redness, drainage, or pain. due to location, size, and pt has DM- recommend keflex for infection prevention [id number] GISELLE INMAN MD [facility] CLOSED [address] [place] [address] 11/10/2023 13:41:57 11/15/2023 07:30:26 Polyneuropathy due to diabetes mellitus 26025381 E11.42 Emphasized the importance of strict glycemic control. Offered to check A1c but patient plans to discuss this with his primary care physician so that it can be checked closer to home. He does request endocrinol ogy referral. Will place that per his request. Bilateral carpal tunnel syndrome 0231384024 1195293 G56.03 Patient reports some improvemen t in symptoms. He feels that it is well-contr olled and is not interested in surgical referral. He will continue wearing brace as needed. Low back pain 164665912 M54.50 He has chronic low back pain. He [...] recommend he continue using that as needed. Chronic ne uropathic pain 206133898 M79.2 Increase gabapentin to 300 mg in the morning, 400 mg in the afternoon, and 300 mg at night as most of his pain is in the evening. Trial lidocaine ointment. If no improvemen t could try capsaicin and/or compoundin g agent. Follow-up in 4 months [id number] ROSEANNA AMATO APRN [facility] [address] [place] [address] 11/15/2023 14:07:39 11/15/2023 16:01:14 Uncontrolled type 2 diabetes mellitus 237591423 E11.65 In the office today A1c 7%.Random point-of-c are blood glucose of 219 in the office today. Goal A1c is less than 7%Goal blood glucose: Before meals and upon awakenin-130. 1-2 After meals or at bedtime: < 180. Discussed in detail the consequenc es of uncontroll ed hyperglyce jackie in the form of microvascu lar complicati ons such as diabetic retinopath y, worsening of diabetic nephropath y, diabetic neuropathy and macrovascu lar complicati ons such as coronary artery disease, peripheral arterial disease and stroke.Edu cated on the importance of dietary carbohydra te consistenc y and restrictio n and not to exceed 45 g of carbohydra te per meal and 15-30 g per snack if needed.Edu cated on signs and symptoms of hypoglycem ia, and what to do if patient is effected by it including: Blood glucose less than 70, drink 6 ounces of soda/juice , glucose and recheck 15 minutes later. If blood glucose still less than 70 repeat until above 70. Once greater than 70 follow-up with ricien. Recommenda tions:Will obtain routine labs, orders placed and printed for patient.Co ntinue Farxiga 5 dailyConti nue Toujeo 76 units at bedtimeCon tinue Humalog 100 units twice a dayFollow- up in 3 monthsPodi atry consult Diabetic nutrition consult Eye exam: Patient states he is up-to-date and negative for diabetic retinopath y with Dr. Garcia in [place]. Records have been requested. 10 g monofilame nt test: Performed and unremarkab le. Podiatry consult has been placed for nail clipping per patient request in [place]. Medical Nutrition therapy: Consult placed at today's visit Essential hypertension 90886668 I10 Goal BP less than 140/90BP in office today 126/78Cont inue current bisoprolol , hydrochlor othiazide, losartan daily as prescribed by PCP.Contin ue BP monitoring at home. Hyperlipidemia 36607270 E78.5 Orders for fasting lipid panel has been placed and printed for patient to have obtained.C ontinue current rosuvastat in 40 mg, Zetia 10 mg therapy as prescribed by PCP.Patien t states understand ing of the above plan of care and with no questions or concerns at this time. 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 Patient states this dose was increased recently and he is doing better with his symptoms. [id number] KALPANA SAUCEDA PA-C [facility] [address] [place] [address] 02/27/2024 14:26:01 02/27/2024 15:16:46 Actinic keratosis 305429557 L57.0 Pre-malign ant dx discussedR ecommended cryosurger yLN x 8See procedure notePatien t tolerated procedure wellAfter care given to patient He did not treat scalp with 5FU solution that James prescribed Raised katie orrheic keratosis 6690871137 82114 L82.1 Benign reassuranc e Solar lentiginosis 84058 2007 L81.4 Benign reassuranc e Multiple skin tags 35455 7009 L91.8 Benign reassuranc eGradle removal of tag on L axilla. Gets hung on clothingSe e procedure noteAfter care instructio ns provided Hemangioma 159498764 D18 .00 Benign reassuranc e History of squamous cell carcinoma of skin 806122344 Z85.828 R wrist s/p excision 09-21-2023 Dr. Frye EOR Patient ad vised about exposure to the sun 394991651 Z71.89 Counseled on sun protective clothing/h ats and daily UV protection with otc broad-spec trum SPF 30+ on exposed areas. Regular self-skin exams recommende d. Pt encouraged to RTC with any new/changi ng lesions. Inflamed s eborrheic keratosis 317652144 L82.0 Benign reassuranc e. Treated with LN due to pt reported sx of itch/disco mfortLN x 2See procedure notePatien t tolerated procedure wellAfter care instructio ns provided Neoplasm o f uncertain behavior of skin 41437660 D48.5 L knee - r/o verrucous keratosis vs SCC shave bx taken today with ED to basesee procedure notewound care was givenconse nt was signedphot o takenf/up per path Tenderness of skin 19077 9000 R20.8 Skin tag L axilla [id number] ROSEANNA AMATO APRN END[facility] [address] [place] [address] 02/28/2024 14:51:25 03/01/2024 04:35:13 Uncontrolled type 2 diabetes mellitus 502230430 E11.65 In the office today A1c 7.1%, up from 7%.Random point-of-c are blood glucose of 393 in the office today. Goal A1c is less than 7%Goal blood glucose: Before meals and upon awakenin-130. 1-2 After meals or at bedtime: < 180.Re-dis cussed in detail the consequenc es of uncontroll ed hyperglyce jackie in the form of microvascu lar complicati ons and macrovascu lar complicati ons.Cristobal rivas was re-educate d on the importance of dietary carbohydra te consistenc y and restrictio n and not to exceed 45 g of carbohydra te per meal and 15-30 g per snack if needed.Anton terated the signs and symptoms of hypoglycem ia, and what to do if patient is effected by it. Recommenda tions:Kristofer sanchez lab orders were printed and given to patient at prior visit. Patient states that [facility] [place]. Records have been requested. Continue Farxiga 5 dailyConti nue Toujeo 76 units at bedtimeCon tinue Humalog 75/25, 100 units three times a dayFollow- up in 3 monthsPodi atry consult placed again at today's visit at [facility] podiatry. Eye exam: Patient states he is up-to-date and negative for diabetic retinopath y with Dr. Garcia in [place]. Records have been requested. 10 g monofilame nt test: Performed and unremarkab le. Podiatry consult has been placed for nail clipping per patient request in [place]. Medical Nutrition therapy: Consult placed at prior visit Peripheral neuropathy due to type 2 diabetes mellitus [id number] 107 E11.42 Patient currently taking gabapentin 400 mg daily per PCP. Patient states this dose was increased recently and he is doing better with his symptoms. Essential hypertension [id number] I10 Goal BP less than 140/90BP in office today 130/78Cont inue current bisoprolol , hydrochlor othiazide, losartan daily as prescribed by PCP.Contin ue BP monitoring at home. Hyperlipidemia [id number] E78.5 Orders for fasting lipid panel has been placed and printed for patient to have obtained.C ontinue current rosuvastat in 40 mg, Zetia 10 mg therapy as prescribed by PCP.Patien t states understand ing of the above plan of care and with no questions or concerns at this time. [id number] GISELLE INMAN MD PHYSICAL MEDICINE & REHABILIT ATION CLOSED [address] [place] [address] 02/28/2024 13:48:09 02/29/2024 09:11:49 Lumbosacral radiculopathy [id number] M54.17 Refer to PT to address back pain and to help centralize pain. Improve core stability and teach him a home exercise program to include stretching . He also is seeing pain physician locally and is planning to have a lumbar epidural soon. 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 Follow-up in 6 months. Arthropath y of lumbar facet joint [id number] M47.816 [id number] GISELLE INMAN MD PHYSICAL MEDICINE & REHABILIT ATION [address] [place] [address] 08/28/2024 13:37:44 08/29/2024 04:17:50 Chronic low back pain [id number] M54.50 G89.29 He has chronic low back [...] insufficie ncy. Patient tried epidural injection in [place]. Resulted in severe flare of pain and [...] low back pain. Diabetic p eripheral neuropathy [id number] E11.42 Renew gabapentin . Taking 300 mg in the morning, 400 mg midday, and 300 mg at night. Follow-up in 6 months Health Concerns Section Related Observation LastModified by Organization Detai ls LastModified Time None Recorded Concern Status LastModified by Organization Details LastModified Time None Recorded Advance Directives Directive None Recorded Payers Insurance Date Sequence Insurance Name Policy Number Policy Claros Covered Member ID Claros Member ID Guarantor Name 02/23/2024 1 [place] [id number] Brant Shipley Jenny [id number] Brant Shipley Jenny 09/18/2024 1 [place] Brant Shipley Jenny [id number] Brant Shipley Jenny 09/18/2024 2 AARP (MEDICARE SUPPLEMENT) Brant Shilpey Jenny [id number] Brant Shipley Jenny Notes Date Note Type Note Provider Name and Address Organization Details Recorded Time 11/15/2023 text/html Nilesh is a 78-year-old male who presents office today after referral for diabetes management. Patient states his A1c has consistently been less than 8% over the last couple years, however he is currently taking a large amount of insulin. Patient states he is currently being followed by [facility] and rehab physician for severe diabetic neuropathy. Patient states he currently checks his blood sugar 2-3 times a day at home with readings ranging anywhere from 80-180. He denies any symptoms, or episodes of hypoglycemia. Past medical history significant for metastatic prostate cancer, diabetic neuropathy, hypertension, hyperlipidemia. ROSEANNA AMATO, NUCLEAR LICENSING ENGINEER [address] [place], [phone], [facility] 11/15/2023 15:41:02 02/27/2024 text/html Established Patient--last saw James Pacheco NUCLEAR LICENSING ENGINEER 08-25-2023 Patient presents to the clinic for full skin exam. Hx of SCC. At last visit, he was to treat his AKs located on his crown with 5FU topical solution. He states he did not treat his scalp with the 5FU. He did get the cream he just forgot all about having to treat scalp. c/o skin tag in L axilla, wart on L leg, and places on scalp. Denies any other new, changing, or bleeding lesions, or other rashes. Patient feels well today and in a good mood. No family history of melanoma. KALPANA SAUCEDA PA-C [address] [place] [address], [phone], [facility] 02/27/2024 16:10:58 02/28/2024 text/html 79-year-old male here for follow-up. He has chronic diabetic polyneuropathy. He he would also like to discuss worsening chronic low back pain with known grade 2 L5 over S1 listhesis. He now reports some radiation of pain down the right leg from his back. He was seen by anesthesia pain locally and is planning to undergo a lumbar epidural soon. He had several questions regarding this including risks and potential benefits. He has never undergone outpatient physical therapy. Pain is in the lower back and bilateral. It occasionally radiates into the right buttock and down into the right leg distally. He was prescribed gabapentin 300 mg in the morning, 400 in the afternoon, and 300 at night. He decided to increase the afternoon dose from 400 to 800 mg on his own due to severe burning pain in his foot that usually begins around 4 to 7 PM. He also takes THC at night to help with pain and sleep. He was also prescribed a compounding cream which is mildly helpful. Glucose levels are improving. GISELLE INMAN MD [address] [place] [address], [phone], [facility] 02/28/2024 14:55:42 02/28/2024 text/html Nilesh is an 79-year-old male presents office today for follow-up on diabetes management. Patient continues to maintain good glucose control with A1c of 7.1% at today's visit. He denies any symptoms or episodes of hypoglycemia. Patient is very adamant about my not sending in refills of medication today. Diabetic medications were thoroughly reviewed and confirmed with the patient. He does state compliance with current diabetic medication as well as lifestyle modification. Voices no questions or concerns at this time. ROSEANNA AMATO APRN [address] [place] [address], [phone], [facility] 02/29/2024 09:10:37 08/28/2024 text/html The patient is a n [...] as advised by his primary care provider. GISELLE INMAN MD [facility] [place], [phone], [facility] 08/28/2024 17:11:19
[2024-10-03 16:12] LABS: Hematocrit 35.1 % (42.0-52.0); Hemoglobin 11.4 g/dL (14.1-18.0); Immature Granulocytes % 0.5 %; Mean Corpuscular HGB Conc 32.5 g/dL (31.8-35.4); Mean Corpuscular Hemoglobin 32.4 pg (27.0-31.2); Mean Corpuscular Volume 99.7 fl (80-94); Nucleated Red Blood Cells % 0 %; Platelet Count 158 K/mm3 (142-424); Red Blood Count 3.52 M/mm3 (4.60-6.20); Red Cell Distribution Width-SD 57.7 fL; White Blood Count 8.6 K/mm3 (4.8-10.8)
[2024-10-03 16:57] LABS: Albumin Level 4.3 g/dl (3.5-5.0); Chloride 105 mmol/L (98-107); Potassium 4.4 mmoL/L (3.5-5.1); Sodium 142 mmol/L (136-145)
[2024-10-03 16:59] LABS: Blood Urea Nitrogen 34 mg/dl (9-20); Creatinine,Serum 1.50 mg/dl (0.66-1.25); Estimated Glomerular Filt Rate 45 ml/min (>60); GFR (African American) 54 ML/MIN (>60)
[2024-10-03 17:00] LABS: Alanine Aminotransferase 25 U/L (12-78); Albumin/Globulin Ratio 1.5 (1.1-1.8); Alkaline Phosphatase 62 U/L (38-126); Anion Gap 14.4 mEq/L (5-15); Aspartate Amino Transferase 27 U/L (17-59); Bilirubin,Total 0.9 mg/dl (0.2-1.3); Calcium 9.6 mg/dl (8.4-10.2); Carbon Dioxide 27 mmol/L (22.0-30.0); Globulin 2.9 g/dL (1.3-3.2); Glucose 188 mg/dl (74-100); Iron 126 ug/dL (49-181); Phosphorous 3.4 mg/dl (2.5-4.5); Total Protein,Serum 7.2 g/dl (6.3-8.2)
[2024-10-03 17:13] LABS: Total Iron Binding Capacity 343 ug/dL (261-462)
[2024-10-03 17:42] LABS: Ferritin 219 ng/ml (17.9-464)
== END 2024-10-03 23:59 | disposition home or self-care (01) ==
LOC: LAB 15:20
PROVIDERS: PCP Internal Medicine Adolescent Medicine; Visit Provider Nurse Practitioner Family
DX: N18.4 Chronic kidney disease, stage 4 (severe) (principal)
CPT/HCPCS: 36415; 80053; 82728; 83540; 83550; 84100; 85025

== ENCOUNTER 2025-01-03 15:57 | Outpatient (CLI) | payer MEDICARE, SELFPAY ==
--- OUTSIDE RECORDS SUMMARY | 2024-12-10 14:00 | XMS_ITS | Encounter Summary ---
Author Organization [facility] Address [address] [place] [address] Care Team Providers Care Aix System Administrator Name Role Phone Roland Dasilva MD Primary Care Provider [phone] Encounter Details Date Type Department Care Team (Late st Contact Info) Description 12/10/2024 2:00 PM EDT Office Visit [facility] HEMATOLOGY & ONCOLOGY [address] [facility] [address] [place] [address] Edilberto Xiong MD [address] [facility] [address] [place] [address] Malignant neoplasm of prostate (Primary Dx); Malignant neoplasm metastatic to bone Social History Tobacco Use Types Packs/Day Years Used Date Smoking Tobacco: Some Days Cigarettes Smokeless Tobacco: Never Comments:~2 cigs/weekly Alcohol Use Standard Drinks/Week Comments Yes 6 (1 standard drink = 0.6 oz pur e alcohol) PHQ-2 Answer Date Recorded Retired PHQ-9: Brief Depression Severity Measure Score 0 05/12/2022 PHQ-2 Answer Date Recorded Patient Health Questionnaire-2 Score 0 06/04/2024 Sex and Gender Information Value Date Recorded Sex Assigned at Not on file Legal Sex Male 3:27 PM EDT Gender Identity Not on file Sexual Orientation Not on file documented as of this encounter Last Filed Vital Signs Vital Sign Reading Time Taken Comments Blood Pressure 150/82 12/10/2024 1:57 PM EDT LUE Pulse 82 12/10/2024 1:57 PM EDT Temperature 36.8 C (98.3 F) 12/10/2024 1:57 PM EDT Respiratory Rate 20 12/10/2024 1:57 PM EDT Oxygen Saturation 92% 12/10/2024 1:57 PM EDT RA Inhaled Oxygen Concentration - - Weight 102 kg (224 lb) 12/10/2024 1:57 PM EDT Height 170.2 cm (5' 7 ) 12/10/2024 1:57 PM EDT Body Mass Index 35.08 12/10/2024 1:57 PM EDT documented in this encounter Progress Notes * Edilberto Xiong MD - 12/10/2024 2:00 PM EDT PROBLEM LIST: Oncology/Hematology History Overview Note 1. 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 Patient started on Lupron with Zytiga and prednisone in January 2018 3. Xgeva for bony metastases started in January 2018 Malignant neoplasm of prostate 01/16/2018 Initial Diagnosis Malignant neoplasm of prostate (CMS/HCC) 01/16/2018 - Chemotherapy OP PROSTATE Abiraterone / PredniSONE 01/16/2018 - Hormonal Therapy leuprolide (LUPRON) injection 22.5 mg, Once every 3 Months 01/16/2018 - 12/26/2019 Treatment Xgeva every 3 months for Bone metastasis - stopped after 2 years due to Jaw discomfort 01/31/2018 - Chemotherapy OP Leuprolide 22.5 mg Q3M Malignant neoplasm metastatic to bone 01/16/2018 Initial Diagnosis Malignant neoplasm metastatic to bone 01/31/2018 - Chemotherapy OP Leuprolide 22.5 mg Q3M REASON FOR VISIT: Metastatic prostate cancer HISTORY OF PRESENT ILLNESS: 79 y.o. male presents today for follow-up of his metastatic prostate cancer. He is currently on Zytiga with prednisone. He is tolerating his treatment without any significant issues except does complain of fatigue. Overall doing quite well. No further issues with left jaw pain. I had discontinued his Xgeva after completed 2 years of treatment. I was concerned about ONJ occurring. He has received 3 doses of his Covid vaccine. He is doing reasonably well. Continues to have fatigue which I will treat him with Ritalin. He alsohas some back issues with some neuropathy in his lower extremities. He does have narrowing of L4 foramen. His biggest issue is considerable back issues. No major health problems since I last saw him. Past medical history, social history and family history leg was reviewed and unchanged from prior visit. Review of Systems: Review of Systems Constitutional: Positive for fatigue. HENT: Negative. Eyes: Negative. Respiratory: Negative. Cardiovascular: Negative. Gastrointestinal: Negative. Endocrine: Negative. Genitourinary: Negative. Musculoskeletal: Positive for back pain. Skin: Negative. Neurological: Negative. Hematological: Negative. Psychiatric/Behavioral: Negative. A comprehensive 14 point review of systems was performed and was negative except as mentioned. Medications: The current medication list was reviewed in the EMR ALLERGIES: Allergies Allergen Reactions Amlodipine Besylate Itching and Swelling Physical Exam VITAL SIGNS: BP 150/82 Comment: LUE Pulse 82 Temp 98.3 ??F (36.8 ??C) (Temporal) Resp 20 Ht 170.2 cm (67 ) Wt 102 kg (224 lb) SpO2 92% Comment: RA BMI 35.08 kg/m?? Wt Readings from Last 3 Encounters: 12/10/24 102 kg (224 lb) 09/10/24 102 kg (225 lb) 06/04/24 100 kg (220 lb 9.6 oz) Performance Status: 0 General: well appearing, in no acute distress HEENT: sclera anicteric, oropharynx clear, neck is supple Lymphatics: no cervical, supraclavicular, or axillary adenopathy Cardiovascular: regular rate and rhythm, no murmurs, rubs or gallops Lungs: clear to auscultation bilaterally Abdomen: soft, nontender, nondistended. No palpable organomegaly Extremities: no lower extremity edema Skin: no rashes, lesions, bruising, or petechiae Msk: Shows no weakness of the large muscle groups Psych: Mood is stable RECENT LABS: Lab Results Component Value Date HGB 10.8 (L) 06/04/2024 HCT 34.1 (L) 06/04/2024 MCV 103.6 (H) 06/04/2024 PLT 138 (L) 06/04/2024 WBC 8.76 06/04/2024 NEUTROABS 7.42 (H) 06/04/2024 LYMPHSABS 0.76 06/04/2024 MONOSABS 0.54 06/04/2024 EOSABS 0.00 06/04/2024 BASOSABS 0.01 06/04/2024 Lab Results Component Value Date GLUCOSE 257 (H) 06/04/2024 BUN 35 (H) 06/04/2024 CREATININE 1.58 (H) 06/04/2024 NA 142 06/04/2024 K 3.9 06/04/2024 CL 107 06/04/2024 CO2 21.3 (L) 06/04/2024 CALCIUM 9.1 06/04/2024 PROTEINTOT 6.5 06/04/2024 ALBUMIN 4.2 06/04/2024 BILITOT 0.5 06/04/2024 ALKPHOS 59 06/04/2024 AST 20 06/04/2024 ALT 16 06/04/2024 Lab Results Component Value Date PSA 0.721 06/04/2024 PSA 0.661 03/05/2024 PSA 0.394 11/16/2023 PSA 0.208 08/25/2023 PSA 0.148 05/25/2023 PSA 0.076 02/23/2023 PSA 0.082 11/17/2022 PSA 0.045 08/18/2022 PSA 0.034 02/09/2022 PSA 0.029 11/11/2021 PSA 159 01/16/2018 Most recent scans on January shows stable disease with no sign of progression. He had a bone scan and CTs of the chest abdomen pelvis at [facility] in [place]. Assessment/Plan 1. Metastatic prostate cancer with bone metastases. PSA is slowly rising. For now I am going to continue with no changes. Continue Lupron with abiraterone. If at some point he increases his PSA over10 then I will likely switch him to apalutamide. 2. Bone metastases. 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 He completed 2 years and has had maximum benefit from his treatment. he does not need any further treatment since it would risk ONJ. 3. 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 He is on Ritalin 5 mg twice daily Follow up in 3 months or sooner if any issues or concerns. Total time of patient care on day of service including time prior to, face to face with patient, and following visit spent in reviewing records, lab results, imaging studies, discussion with patient,and documentation/charting was > 3o minutes. Edilberto Xiong MD [facility] Hematology and Oncology Return in (Approximately): 3 months Orders Placed This Encounter Procedures PSA 12/10/2024 documented in this encounter Plan of Treatment Upcoming Encounters Date Type Department Care Team (Late st Contact Info) Description 03/11/2025 1:00 PM EST Office Visit [facility] HEMATOLOGY & ONCOLOGY [address] [facility] [address] [place] [address] Edilberto Xiong MD [address] [facility] [address] [place], [place] [id number] 03/11/2025 1:30 PM EST Appointment [facility] [place] [address] [facility] [address] [place] [id number] Scheduled Orders Name Type Priority Associated Diagnoses Orde r Schedule PSA Lab Routine Malignant neoplasm of prostate Malignant neoplasm metastatic to bone Expected: 03/11/2025, Expires: 03/11/2026 documented as of this encounter Goals Goal Patient Goal Type Associated Problems Recent Progress Patient-Stated? Author Specialty Pharmacy General Goal General On track( 024 3:21 PM EST) Amarilis Bustos, [facility] Note: Clinical goal/therapeutic target: stable or decreasing PSA and disease control, per the recent oncology clinic notes and labs. { PSA Date Value Ref Range Status 08/25/2023 0.208 0.000 - 4.000 ng/mL Final 05/25/2023 0.148 0.000 - 4.000 ng/mL Final 02/23/2023 0.076 0.000 - 4.000 ng/mL Final 11/17/2022 0.082 0.000 - 4.000 ng/mL Final 08/18/2022 0.045 0.000 - 4.000 ng/mL Final 02/09/2022 0.034 0.000 - 4.000 ng/mL Final 11/11/2021 0.029 0.000 - 4.000 ng/mL Final 08/20/2021 0.017 0.000 - 4.000 ng/mL Final 05/21/2021 0.016 0.000 - 4.000 ng/mL Final 09/11/2020 0.025 0.000 - 4.000 ng/mL Final PSA 05/25/2023 13:24 08/25/2023 10:48 11/16/2023 12:02 PSA PSA 0.148 0.208 0.394 03/02/24: I have reviewed the most recent clinic note and labs. Dr. Preston recommends continuing abiraterone at this time. The patient is tolerating the medication and is currently on track for goal. Medication is preventing disease progression as evidenced by imaging or provider/clinic documentation. documented as of this encounter Visit Diagnoses Diagnosis Malignant neoplasm of prostate- Primary Malignant neoplasm metastatic to bone documented in this encounter Care Teams Aix System Administrator Relationship Specialty Start Date End Date Roland Dasilva MD [address] [facility] [address] [facility] [address] PCP - General Adolescent Medicine 01/16/18 documented as of this encounter
--- OUTSIDE RECORDS SUMMARY | 2024-12-10 14:30 | XMS_ITS | Encounter Summary ---
[facility] Address [address] [place] [address] Care Team Providers Care Screen Repairer Crusher Name Role Phone Roland Dasilva MD Primary Care Provider [phone] Reason for Visit * Episode Based Medications (Routine) - Pending Review Specialty Diagnoses / Procedures Referred By Contac t Referred To Contact Diagnoses Malignant neoplasm of prostate Malignant neoplasm metastatic to bone Procedures OR LEUPROLIDE ACETATE SUSPNSION Edilberto Xiong MD [address] [facility] [address] [place] [address] Phone: tel: fax: [facility] [address] [place] [address] Phone: tel: fax: Referral ID Status Reason Start Date Expiration Date V isits Requested Visits Authorized [id number] Pending Review 01/27/2018 01/29/2024 1 1 Encounter Details Date Type Department Care Team (Late st Contact Info) Description 12/10/2024 2:30 PM EDT - 12/10/2024 11:59 PM EDT Hospital Encounter [facility] [place] [address] [facility] [address] [place] [address] Edilberto Xiong MD [address] [facility] [address] [place] [address] Malignant neoplasm of prostate (Primary Dx); Malignant neoplasm metastatic to bone Discharge Disposition: Home or Self Care Social History Tobacco Use Types Packs/Day Years [...] on file documented as of this encounter Medications at Time of Discharge abiraterone acetate (ZYTIGA) 500 MG tabletIndication s:Malignant neoplasm of prostate Take 2 tablets by mouth Daily. 60 tablet 11 10/16/2024 Accu-Chek Shabana Plus test strip USE DIRECTED FOR TWICE DAILY DIABETIC TESTING 06/14/2022 Accu-Chek Softclix Lancets lancets USE DIRECTED TWICE DAILY FOR DIABETIC TESTING 06/10/2022 ANORO ELLIPTA 62.5-25 MCG/INH aerosol powder inhaler 09/04/2019 BD Insulin Syringe U/F 31G X 08/03 1 ML misc 08/03/2022 bisoprolol (ZEBeta) 10 MG tablet 09/26/2024 dapagliflozin Propanediol (Farxiga) 10 MG tablet Take 10 mg by mouth Daily. esomeprazole (nexIUM) 40 MG capsule 11/02/2017 ezetimibe (ZETIA) 10 MG tablet 10/24/2017 furosemide (LASIX) 20 MG tablet 11/22/2024 gabapentin (NEURONTIN) 300 MG capsule Take 1 capsule by mouth 2 (Two) Times a Day. Morning and bedtime gabapentin (NEURONTIN) 400 MG capsule Take 1 capsule by mouth Daily. In afternoon HumaLOG 100 UNIT/ML injection Inject 100 units 3 times a day by subcutaneous route for 30 days. 11/18/2023 HumaLOG Mix 75/25 (75-25) 100 UNIT/ML suspension injection Inject 100 Units under the skin into the appropriate area as directed 2 (Two) Times a Day With Meals. And 75 units before bed 07/17/2022 hydrALAZINE (APRESOLINE) 25 MG tablet 11/28/2024 methylphenidate (RITALIN) 5 MG tabletIndication s:Malignant neoplasm of prostate TAKE 2 TABLETS BY MOUTH EACH MORNING AND 1 TABLET BY MOUTH EACH EVENING. 90 tablet 10/10/2024 predniSONE (DELTASONE) 5 MG tabletIndication s:Malignant neoplasm of prostate Take 1 tablet by mouth 2 (Two) Times a Day. 60 tablet 11 05/03/2019 rosuvastatin (CRESTOR) 40 MG tablet 12/26/2017 Toudebrao Max SoloStar 300 UNIT/ML solution pen-injector injection Inject 90 Units under the skin into the appropriate area as directed Daily. 02/25/2021 Tresiba FlexTouch 100 UNIT/ML solution pen-injector injection INJECT 76 units SUBCUTANEOUSLY EVERY DAY 11/08/2024 triamcinolone (KENALOG) 0.1 % cream triamcinolone acetonide 0.1 % topical cream Apply to the rash and itching on the abdomen and back twice a day for up to 2 weeks, then only if needed, for flare ups. You can also use on the ear, if itching. Do not use on the right leg until the infection clears, then it can be used on the right legs. It is ok to use on the left leg. UNIFINE PENTIPS 32G X 4 MM [facility] 07[facility] documented as of this encounter Plan of Treatment Upcoming Encounters Date Type Department Care Team (Late st Contact Info) Description 03/11/2025 1:00 PM EST Office Visit [facility] HEMATOLOGY & ONCOLOGY [address] [facility] [address] [place] [address] Edilberto Xiong MD [address] [facility] [address] [place] [address] 03/11/2025 1:30 PM EST Appointment [facility] [place] [address] [facility] [address] [place] [address] documented as of this encounter Goals Goal Patient Goal Type Associated Problems Recent Progress Patient-Stated? Author Specialty Pharmacy General Goal General On track( 024 3:21 PM EST) Amarilis Bustos, [facility] Note: Clinical goal/therapeutic target: stable or decreasing [...] provider/clinic documentation. documented as of this encounter Procedures Procedure Name Priority Date/Time Associated Diagnosis Comments PSA DIAGNOSTIC Routine 12/10/2024 2:46 PM EDT Malignant neoplasm of prostate Malignant neoplasm metastatic to bone documented in this encounter Results * PSA (12/10/2024 2:46 PM EDT) PSA 1.640 0.000 - 4.000 ng/mL 12/11/2024 2:34 AM EDT [facility] Blood Venipuncture / Unknown 12/10/2024 2:46 PM EDT 12/10/2024 2:56 PM EDT Narrative [facility] - 12/11/2024 2:34 AM EDT Testing Method: [employer] Electrochemiluminescence Immunoassay(ECLIA) Values obtained with different assay methods or kits cannot be used interchangeably. us Chel Santana Rehan [facility] BLOOD ORDERABLES Final Result [facility]
[address] [place] [address], documented in this encounter Visit Diagnoses Diagnosis Malignant neoplasm of prostate- Primary Malignant neoplasm metastatic to bone documented in this encounter Administered Medications Inactive Administered Medications - up to 3 most recent administrations Medication Order MAR Action Action Date Dose Rate Site leuprolide (ELIGARD) injection 22.5 mg 22.5 mg, Subcutaneous, Once, On 12/10/24 at 1445, For 1 dose, Group 2 ([place]) Hazardous Drug - Reproductive Risk Only - See Handling GuideIndications:Malignant neoplasm of prostate,Malignant neoplasm metastatic to bone Given 12/10/2024 3:09 PM EDT 22.5 mg Other documented in this encounter Care Teams Screen Repairer Crusher Relationship Specialty Start Date End Date Roland Dasilva MD [address] [facility] [address] [facility] [place] [address] PCP - General Adolescent Medicine 01/16/18 documented as of this encounter
--- OUTSIDE RECORDS SUMMARY | 2025-01-03 16:01 | XMS_ITS ---
Author Organization [facility] Address [address] [place] [address] Care Team Providers Care Head Soft Sugar Operator Name Role Phone Roland Dasliva MD Primary Care Provider [phone] Oncology- External Fill Status:Enrolled (Active) Start date:05/04/2023 Enrollment date:05/04/2023 Enrollment reason:Referred by provider Current support & services provided:Clinical Assessment, Refill Coordination , Benefits Investigation, Prior Authorization, Copay Assistance, External Pharmacy Dispensing, Financial Assistance Linked medications:Abiraterone Acetate (Active) Linked problems:Malignant neoplasm metastatic to bone (Active), Malignant neoplasm of prostate (Active) Case Team Name Relationship Phone Edilberto Xiong MD Consulting Physician Continued Care and Services Coordination
--- OUTSIDE RECORDS SUMMARY | 2025-01-03 16:01 | XMS_ITS | Encounter Summary ---
[facility] Address [address] [place] [address] Care Team Providers Care Fishing Game Warden Name Role Phone Roland Dasilva MD Primary Care Provider Reason for Visit * Reason Onset Date Comments Med Refill 11/23/2023 Encounter Details Date Type Department Care Team (Late st Contact Info) Description 11/23/2023 Refill [facility] HEMATOLOGY & ONCOLOGY [address] [phone] Edilberto Xiong MD [address] [place] [address] Malignant neoplasm of prostate Social History Tobacco Use Types Packs/Day Years Used Date Smoking Tobacco: Some Days Cigarettes Smokeless Tobacco: Never Comments:~2 cigs/weekly Alcohol Use Standard Drinks/Week Comments Yes 6 (1 standard drink = 0.6 oz pur e alcohol) PHQ-2 Answer Date Recorded Retired PHQ-9: Brief Depression Severity Measure Score 0 05/12/2022 PHQ-2 Answer Date Recorded Retired PHQ-9: Brief Depression Severity Measure Score 0 05/25/2023 Sex and Gender Information Value Date Recorded Sex Assigned at Not on file Legal Sex Male 3:27 PM EDT Gender Identity Not on file Sexual Orientation Not on file documented as of this encounter Miscellaneous Notes * Telephone Encounter - Krystle David RegSched Rep - 11/23/2023 1:18 PM EDT Caller: Brant Alvarado Relationship: Self Best call back number: [phone] Requested Prescriptions: Requested Prescriptions Pending Prescriptions Disp Refills methylphenidate (RITALIN) 5 MG tablet 90 tablet 0 Sig: TAKE 2 TABLETS BY MOUTH EACH MORNING AND 1 TABLET BY MOUTH EACH EVENING. Pharmacy where request should be sent: [address] [phone] [facility] [phone] Last office visit with prescribing clinician: 08/25/2023 Last telemedicine visit with prescribing clinician: Visit date not found Next office visit with prescribing clinician: 02/27/2024 Additional details provided by patient: NA Does the patient have less than a 3 day supply: [x] Yes [] No Would you like a call back once the refill request has been completed: [] Yes [] No If the office needs to give you a call back, can they leave a voicemail: [] Yes [] No Katt Elder 11/23/23 13:18 EDT documented in this encounter Plan of Treatment Upcoming Encounters Date Type Department Care Team (Late st Contact Info) Description 03/11/2025 1:00 PM EST Office Visit [facility] HEMATOLOGY & ONCOLOGY 3000 [facility] [address] [place] [phone] Edilberto Xiong MD 1700 [facility] [address] [place] [address] 03/11/2025 1:30 PM EST Appointment [facility] OUTPATIENT ONCOLOGY [place] 3000 [facility] [address] [place] [phone] documented as of this encounter Goals Goal Patient Goal Type Associated Problems Recent Progress Patient-Stated? Author Specialty Pharmacy General Goal General On track( 024 3:21 PM EST) No Amarilis Mcclendon [facility] Note: Clinical goal/therapeutic target: stable or decreasing [...] encounter Visit Diagnoses Diagnosis Malignant neoplasm of prostate documented in this encounter Care Teams Fishing Game Warden Relationship Specialty Start Date End Date Roland Dasilva MD [address] [facility] [address] [facility] [address] PCP - General Adolescent Medicine 01/16/18 documented as of this encounter
--- OUTSIDE RECORDS SUMMARY | 2025-01-03 16:01 | XMS_ITS | Encounter Summary ---
[facility] [address] [place] [address] Care Team Providers Care Public Health Service Officer Name Role Phone Roland Dasilva MD Primary Care Provider Encounter Details Date Type Department Care Team (Late Contact Info) Description 11/05/2021 Telephone [facility] HEMATOLOGY & ONCOLOGY [address] [facility] [address] [place] [phone] Edilberto Xiong MD 1700 [facility] [address] [place] [address] Social History Tobacco Use Types Packs/Day Years Used Date Smoking Tobacco: Some Days Cigarettes Smokeless Tobacco: Never Comments:~2 cigs/weekly Alcohol Use Standard Drinks/Week Comments Yes 6 (1 standard drink = 0.6 oz pur e alcohol) PHQ-2 Answer Date Recorded Retired Total Score 0 05/21/2021 Sex and Gender Information Value Date Recorded Sex Assigned at Not on file Legal Sex Male 3:27 PM EDT Gender Identity Not on file Sexual Orientation Not on file documented as of this encounter Plan of Treatment Upcoming Encounters Date Type Department Care Team (Late Contact Info) Description 03/11/2025 1:00 PM EST Office Visit [facility] HEMATOLOGY & ONCOLOGY 3000 [facility] [address] [place] [phone] Edilberto Xiong MD 1700 [facility] [address] [place] [address] 03/11/2025 1:30 PM EST Appointment [facility]IENT [facility]COL[facility] [place] 3000 [facility] [address] [place] [address] documented as of this encounter Goals Goal Patient Goal Type Associated Problems Recent Progress Patient-Stated? Author Specialty Pharmacy General Goal General On track( 024 3:21 PM EST) Amarilis Bustos [facility] Note: Clinical goal/therapeutic target: stable or [...] documented as of this encounter Visit Diagnoses Not on filedocumented in this encounter Care Teams Public Health Service Officer Relationship Specialty Start Date End Date Roland Dasilva MD 1210 [facility] [address] [place] [address] PCP - General Adolescent Medicine 01/16/18 documented as of this encounter
--- OUTSIDE RECORDS SUMMARY | 2025-01-03 16:01 | XMS_ITS ---
Author Organization [facility] Address [address] [place] [address] Care Team Providers Care Ebd Teacher Name Role Phone Roland Dasilva MD Primary Care Provider [phone] Active Problems Problem Noted Date Diagnosed Date Malignant neoplasm of prostate 01/16/2018 Cancer Staging:Clinical:Stage IVB(cTX, cNX, cM1b, PSA: 159, Grade Group: 4) - Signed by Edilberto Xiong MD on 01/16/2018 Malignant neoplasm metastatic to bone 01/16/2018 Current Treatment and Therapy Plans OP Leuprolide 22.5 mg Q3M* Plan Start Date:01/27/2018 Plan Provider:Edilberto Xiong MD Linked Problems Malignant neoplasm of prosta teMalignant neoplasm metastatic to bone Treatment Medications Current Day (Day 1 , Cycle 30 - Planned for 03/11/2025) Next Day (Day 1, Cycle 31 - Planned for 06/09/2025) leuprolide (ELIGARD)leuprolide (LUPRON) leuprolide (LUPRON) injection 22.5 mg leuprolide (LUPRON) injection 22.5 mg OP PROSTATE Abiraterone / PredniSONE* Plan Start Date:01/26/2018 Plan Provider:Edilberto Xiong MD Linked Problems Malignant neoplasm of prosta te Treatment Medications Current Day (Day 1 , Cycle 10 - Planned for 10/09/2018) Next Day (Day 1, Cycle 11 - Planned for 11/06/2018) abiraterone acetate (ZYTIGA) No medications sche duled. No medications scheduled. Past Treatment and Therapy Plans ONCOLOGY SUPPORTIVE CARE 2 Plan Name Start Date Discontinue Date Treatment Medications Discontinue Reason Plan Provider Cycles OP Denosumab (Xgeva) 84 days 01/27/2018 02/06/2020 denosumab (XGEVA) Not Tolerated Edilberto Xiong MD 9 of 12 cycles started
--- OUTSIDE RECORDS SUMMARY | 2025-01-03 16:01 | XMS_ITS | Encounter Summary ---
[facility] Address [address] [place] [address] Care Team Providers Care Angle Shear Set Up Operator Name Role Phone Roland Dasilva MD Primary Care Provider Reason for Visit * Reason Onset Date Comments Med Refill 10/02/2024 Encounter Details Date Type Department Care Team (Late st Contact Info) Description 10/02/2024 Refill [facility] HEMATOLOGY & ONCOLOGY [address] [phone] Edilberto Xiong MD 1700 [place] [address] Malignant neoplasm of prostate Social History Tobacco [...] encounter Miscellaneous Notes * Telephone Encounter - Pia Lacey RegSched Rep - 10/02/2024 10:10 AM EDT Caller: Geena Alvarado Relationship: Emergency Contact Best call back number: [phone] Requested Prescriptions: Requested Prescriptions Pending Prescriptions Disp Refills abiraterone acetate (ZYTIGA) 500 MG tablet 60 tablet 11 Pharmacy where request should be sent: PT'S RX CAN NO LONGER BE SENT TO [facility] DUE TO CHANGES WITHCIGNA. THE PT'S RX MUST NOW BE SENT TO [facility]. [facility], BUT A NEW RX NEEDS TO BE SENT TO [facility] PH: [phone] / FAX: [phone] Last office visit with prescribing clinician: 06/04/2024 Last telemedicine visit with prescribing clinician: Visit date not found Next office visit with prescribing clinician: 12/10/2024 Additional details provided by patient: Does the patient have less than a 3 day supply: [] Yes [x] No Would you like a call back once the refill request has been completed: [] Yes [x] No If the office needs to give you a call back, can they leave a voicemail: [] Yes [x] No documented in this encounter Plan of Treatment Upcoming Encounters Date Type Department Care Team (Late st Contact Info) Description 03/11/2025 1:00 PM EST Office Visit [facility] HEMATOLOGY & ONCOLOGY [address] [place] [address] [address] [place] [phone] Edilberto Xiong MD 1700 [facility] [address] [place] [address] 03/11/2025 1:30 PM EST Appointment [facility] OUTPATIENT ONCOLOGY [place] 3000 [facility] [address] [place] [phone] documented as of this encounter Goals Goal Patient Goal Type Associated Problems Recent Progress Patient-Stated? Author Specialty Pharmacy General Goal General On track( 024 3:21 PM EST) No Amarilis Mcclendon [facility] Note: Clinical goal/therapeutic target: stable or decreasing [...] prostate documented in this encounter Care Teams Angle Shear Set Up Operator Relationship Specialty Start Date End Date Roland Dasilva MD 1210 [facility] [address] [place] [address] PCP - General Adolescent Medicine 01/16/18 documented as of this encounter
--- OUTSIDE RECORDS SUMMARY | 2025-01-03 16:01 | XMS_ITS | Encounter Summary ---
Author Organization [facility] Address [address] [place] [address] Care Team Providers Care Acid Concentrator Name Role Phone Roland Dasilva MD Primary Care Provider [phone] Encounter Details Date Type Department Care Team (Latest Contact Info) Description 12/10/2024 Travel Social History Tobacco Use Types Packs/Day Years [...] Description 03/11/2025 1:00 PM EST Office Visit [facility] HEMATOLOGY & ONCOLOGY 3000 [facility] [address] [place] [address] Edilberto Xiong MD 1700 [facility] [address] [place] [address] 03/11/2025 1:30 PM EST Appointment [facility] OUTPATIENT ONCOLOGY [place] 3000 [facility] [address] [place] [phone] documented as of this encounter Goals Goal Patient Goal Type Associated Problems Recent Progress Patient-Stated? Author Specialty Pharmacy General Goal General On track( 024 3:21 PM EST) Amarilis Bustos, [facility] Note: Clinical goal/therapeutic target: stable or decreasing [...] on filedocumented in this encounter Care Teams Acid Concentrator Relationship Specialty Start Date End Date Roland Dasilva MD 12[address] [facility] [address] [place] [address] PCP - General Adolescent Medicine 01/16/18 documented as of this encounter
--- OUTSIDE RECORDS SUMMARY | 2025-01-03 16:02 | XMS_ITS | Clinical Summary ---
Author Organization [facility] Address [address] [place] [address] Care Team Providers Care Strategy Planning Consultant Name Role Phone Roland Dasilva MD Primary Care Provider [phone] Allergies Active Allergy Reactions Criticality Noted Date Comments Amlodipine Besylate Itching,Swelling 06/19/2020 Medications ezetimibe (ZETIA) 10 MG tablet 10/25/19 18 Active rosuvastatin (CRESTOR) 40 MG tablet 12/27/19 18 Active esomeprazole (nexIUM) 40 MG capsule 11/03/19 18 Active triamcinolone (KENALOG) 0.1 % cream triamcinolone acetonide [...] ok to use on the left leg. Active predniSONE (DELTASONE) 5 MG tabletIndicatio ns:Malignant neoplasm of prostate Take 1 tablet by mouth 2 (Two) Times a Day. 60 tablet 11 05/03/19 20 Active UNIFINE PENTIPS 32G X 4 MM misc 07/25/19 20 Active ANORO ELLIPTA 62.5-25 MCG/INH aerosol powder inhaler 09/04/19 20 Active Toujeo Max SoloStar 300 UNIT/ML solution pen-injector injection Inject 90 Units under the skin into the appropriate area as directed Daily. 02/26/20 21 Active dapagliflozin Propanediol (Farxiga) 10 MG tablet Take 10 mg by mouth Daily. Active Accu-Chek Shabana Plus test strip USE DIRECTED FOR TWICE DAILY DIABETIC TESTING 06/15/19 Active HumaLOG Mix 75/25 (75-25) 100 UNIT/ML suspension injection Inject 100 Units under the skin into the appropriate area as directed 2 (Two) Times a Day With Meals. And 75 units before bed 07/18/19 Active BD Insulin Syringe U/F 31G X 08/03 1 ML misc 08/04/19 Active Accu-Chek Softclix Lancets lancets USE DIRECTED TWICE DAILY FOR DIABETIC TESTING 06/11/19 Active gabapentin (NEURONTIN) 300 MG capsule Take 1 capsule by mouth 2 (Two) Times a Day. Morning and bedtime Active gabapentin (NEURONTIN) 400 MG capsule Take 1 capsule by mouth Daily. In afternoon Active HumaLOG 100 UNIT/ML injection Inject 100 units 3 times a day by subcutaneous route for 30 days. 11/18/19 24 Active methylphenidate (RITALIN) 5 MG tabletIndicatio ns:Malignant neoplasm of prostate TAKE 2 TABLETS BY MOUTH EACH MORNING AND 1 TABLET BY MOUTH EACH EVENING. 90 tablet 10/11/19 25 Active abiraterone acetate (ZYTIGA) 500 MG tabletIndicatio ns:Malignant neoplasm of prostate Take 2 tablets by mouth Daily. 60 tablet 11 10/17/19 25 Active furosemide (LASIX) 20 MG tablet 11/23/19 25 Active hydrALAZINE (APRESOLINE) 25 MG tablet 11/29/19 25 Active Tresiba FlexTouch 100 UNIT/ML solution pen-injector injection INJECT 76 units SUBCUTANEOUSLY EVERY DAY 11/09/19 25 Active bisoprolol (ZEBeta) 10 MG tablet 09/27/19 25 Active losartan (COZAAR) 100 MG tablet 0 01/02/20 18 025 Discontin ued(*Ther apy completed ) bisoprolol (ZEBeta) 5 MG tablet 0 12/24/19 18 025 Discontin ued(*Ther apy completed ) Active Problems Problem Noted Date Diagnosed Date Malignant neoplasm of prostate 01/16/2018 Cancer Staging:Clinical:Stage IVB(cTX, cNX, cM1b, PSA: 159, Grade Group: 4) - Signed by Edilberto Xiong MD on 01/16/2018 Malignant neoplasm metastatic to bone 01/16/2018 Encounters Date Type Department Care Team Description 12/10/2024 2:30 PM EDT - 12/10/2024 11:59 PM EDT Hospital Encounter [facility] OUTPATIENT ONCOLOGY [place] 3000 [facility] [address] [place] [address] Edilberto Xiong MD Malignant neoplasm of prostate (Primary Dx); Malignant neoplasm metastatic to bone Discharge Disposition: Home or Self Care 12/10/2024 2:00 PM EDT Office Visit [facility] HEMATOLOGY & ONCOLOGY 3000 [facility] [address] [place] [address] Edilberto Xiong MD Malignant neoplasm of prostate (Primary Dx); Malignant neoplasm metastatic to bone 12/10/2024 Travel 10/09/2024 Refill [facility] HEMATOLOGY & ONCOLOGY 1700 [facility] [address] [place] [address] Edilberto Xiong MD Malignant neoplasm of prostate from Last 3 Months Immunizations Immunization Administration Dates Next Due 31-influenza Vac Quardvalent Preservativ 018,12/08/2016 Arexvy (RSV, Adults 60+ yrs) 11/29/2023 FLUAD TRI 65YR+ 12/14/2023 Fluad Quad 65+ 01/23/2021 Fluzone High-Dose 65+YRS 12/15/2018 Fluzone High-Dose 65+yrs 12/27/2022,02/01/2022,0 12/18/2019 Shingrix 07/16/2022,03/03/2020 Tdap 03/25/2021,12/08/2016 Family History Medical History Relation Name Comments Esophageal cancer Brother Heart disease Father Lung cancer Mother Relation Name Status Comments Brother Father Mother Social History Tobacco Use Types Packs/Day Years Used Date Smoking Tobacco: Some Days Cigarettes Smokeless Tobacco: Never Tobacco Cessation:Ready to Q uit: Not Asked; Counseling Given: Not Answered Comments:~2 cigs/weekly Alcohol Use Standard Drinks/Week Comments [...] on file Sexual Orientation Not on file Last Filed Vital Signs Vital Sign Reading [...] Mass Index 35.08 12/10/2024 1:57 PM EDT Plan of Treatment Upcoming Encounters Date Type Department Care Team (Late st Contact Info) Description 03/11/2025 1:00 PM EST Office Visit [facility] HEMATOLOGY & ONCOLOGY 3000 [facility] [address] [place] [phone] Edilberto Xiong MD 1700 [facility] [address] [place] [address] 03/11/2025 1:30 PM EST Appointment [facility] OUTPATIENT ONCOLOGY [place] 3000 [facility] [address] [place] [phone] Health Maintenance Due Date Last Done Comments DIABETIC EYE EXAM 01/13/1955 DIABETIC FOOT EXAM 01/13/1955 URINE MICROALBUMIN-CREATININ E RATIO (uACR) 01/13/1955 Pneumococcal Vaccine 50+ (1 of 2 - PCV) 01/13/1963 COLOGUARD 01/13/1989 COLON CANCER SCREENING 5 YEA R SIGMOIDOSCOPY 01/13/1989 CT COLONOGRAPHY 01/13/1989 FECAL OCCULT BLOOD TEST 01/13/1989 FIT Testing (1 year) 01/13/1989 ZOSTER VACCINE (2 of 2) 07/16/2022 07/16/2022, 03/03 HEMOGLOBIN A1C 07/20/2023 01/19/2023, 08/0 04/2022, 04/16/2022, Additional history exists ANNUAL WELLNESS VISIT 01/20/2024 01/19/2023, 021 INFLUENZA VACCINE 10/19/2024 12/14/2023, , 12/27/2022, Additional history exists COVID-19 Vaccine (4 - 2024-2 6 season) 2024 02/18/2021, 05/13/2020, 04/18/2020 TDAP/TD VACCINES (3 - Td or Tdap) 03/25/2031 022, 12/08/2016 COLONOSCOPY 06/06/2031 06/05/2021 COLORECTAL CANCER SCREENING 06/06/2031 RSV Vaccine - Adults Completed 11/29/2023 Goals Goal Patient Goal Type Associated Problems Recent Progress Patient-Stated? Author Specialty Pharmacy General Goal General On track( 024 3:21 PM EST) Amarilis Bustos, [facility] Note: Clinical [...] as evidenced by imaging or provider/clinic documentation. Procedures Procedure Name Priority Date/Time Associated Diagnosis Comments PSA DIAGNOSTIC Routine 12/10/2024 2:46 PM EDT Malignant neoplasm of prostate Malignant neoplasm metastatic to bone HEMOGLOBIN A1C STAT 03/26/2020 1:13 PM EST Type 2 diabetes mellitus with chronic kidney disease, with long-term current use of insulin, unspecified CKD stage Hyperlipidemia, unspecified hyperlipidemia type from Last 3 Months or Most Recently Relevant to Health Maintenance Results * PSA (12/10/2024 2:46 PM EDT) PSA 1.640 0.000 - 4.000 ng/mL 12/11/2024 2:34 AM EDT [facility] Blood Venipuncture / Unknown 12/10/2024 2:46 PM EDT 12/10/2024 2:56 PM EDT Narrative [facility] - 12/11/2024 2:34 AM EDT Testing Method: [employer] Electrochemiluminescence Immunoassay(ECLIA) Values obtained with different assay methods or kits cannot be used interchangeably. us Chel Van APRN LAB BLOOD ORDERABLES Final Result [facility]
[address] [place] [address], * (ABNORMAL) Hemoglobin A1c (03/26/2020 1:13 PM EST) Hemoglobin A1C 7.80(H) 4.80 - 5.60 % 03/26/2020 3:47 PM EST [facility] Blood Venipuncture / Unknown 03/26/2020 1:13 PM EST 03/26/2020 1:13 PM EST Narrative [facility] - 03/26/2020 3:47 PM EST Hemoglobin A1C Ranges: Increased Risk for Diabetes 5.7% to 6.4% Diabetes >= 6.5% Diabetic Goal < 7.0% Roland Dasilva MD LAB BLOOD ORDERABLES Final R esult [facility]
[address] [place] [address], from Last 3 Months or Most Recently Relevant to Health Maintenance Insurance MEDICARE A & B Member Subscriber Plan / Payer (Ef fective 2009-Present) Name:Brant Alvarado Member ID:[id number] Relation to Subscriber:Self Name:Brant Alvarado Subscriber ID:[id number] Payer ID:[id number] Group ID:Not on file Type:Not on file Address: [address] [employer] Care Teams Strategy Planning Consultant Relationship Specialty Start Date End Date Roland Dasilva MD 12[address] [facility] [address] [place] [address] PCP - General Adolescent Medicine 01/16/18
--- OUTSIDE RECORDS SUMMARY | 2025-01-03 16:02 | XMS_ITS | Data Portability ---
Author Organization [facility] GIBRAN Bray CRESTON CLOSED Address [address] [place] [address] Care Team Providers Care Area Development Consultant Name Role Phone DANIEL WAY Referring Provider GISELLE INMAN Phys. [facility] TRACY RIDDLE Internal Medicine [phone] Assessment Encounter Date Assessment Date Assessment LastModified by Organization Details LastModified Time 02/27/2024 02/27/2024 f/up 6 months skin check is Geena Alvarado [email or web address] Not available 02/27/2024 16:10:17 Plan of Treatment Reminders Order Date Submit Date Provider Last Modified By Organization Details Last Modified Time Details Appointments RECHECK 2024 11:40A M GISELLE INMAN MD Not available Not available Not available Lab glucose, fingerst ick, blood [address] Endocrinology , [address] [place] [address], [phone], 02/29/2024 09:07:55 hemoglob in A1C, fingerst ick [address] Endocrinology , [address] [place] [address], [phone], 02/29/2024 09:07:55 lipid panel, serum 2023 024 [email or web address] [facility], [address] [place] [address], [id number], 04/16/2024 10:18:14 surgical patholog y study 2023 024 [facility], [address] [place] [address], [id number], 02/29/2024 12:38:35 microalb umin/cre atinine, mass ratio, urine 2023 024 [email or web address] [facility], [address] [place] [address], [id number], 12/13/2023 16:23:28 CMP, serum or plasma 2023 024 [facility], [address] [place] [address], [id number], 12/13/2023 16:23:29 glucose, fingerst ick, blood 2023 024 [facility], [address] [place] [address], [id number], 11/15/2023 16:07:37 hemoglob in A1C, fingerst ick 2023 024 [email or web address] [facility], [address] [place] [address], [id number], 11/15/2023 15:32:31 lipid panel, serum 2023 024 [email or web address] [facility], [address] [place] [address], [id number], 12/13/2023 16:23:[address] referral 2023 024 [email or web address] Not available 06/20/2024 11:20:48 physical therapis t referral 2023 024 [email or web address] 1 [facility], [address], [place], [address], 05/30/2024 08:41:[address] referral 2023 024 [email or web address] [facility], [address], [place], [address], 02/08/2024 10:55:43 nutritio nist/ titian referral 2023 024 [email or web address] [facility] Nutritional/Di etitian Counseling, [address], [place], [address], 02/08/2024 10:55:44 Procedures None recorded . Surgeries None recorded . Imaging None recorded . Medication Orders gabapent in 300 mg capsule 2024 025 [facility], [address] [place] [address], [facility], [place], [address], 08/28/2024 17:11:25 gabapent in 400 mg capsule 2024 025 [facility], [address] [place] [address], [facility], [place], [address], 08/28/2024 17:11:28 Farxiga 5 mg tablet [address] [facility], [address] [place] [address], [facility], [place], [address], 02/29/2024 09:07:55 Toujeo Max U-300 SoloStar 300 unit/mL (3 mL) subcutan eous insulin pen [address] [facility], [address] [place] [address], [facility], [place], [address], 02/29/2024 09:07:55 Humalog Mix 75-25 KwikPen U-100 insulin 100 unit/mL subcutan eous pen [address] [facility], [address] [place] [address], [facility], [place], [address], 02/29/2024 09:07:55 Farxiga 5 mg tablet [address], [address] [place] [address], [address], [place], [address], 11/15/2023 15:32:28 Toujeo Max U-300 SoloStar 300 unit/mL (3 mL) subcutan eous insulin pen [address], [address] [place] [address], [address], [place], [address], 11/15/2023 15:32:28 Humalog KwikPen U-200 Insulin 200 unit/mL (3 mL) subcutan eous 2023 024 [facility], [address] [place] [address], [facility], [place], [address], 11/15/2023 15:39:27 Patient TargetsNo targets recorded. Patient Instructions Encounter Date Encounter Id Patient Instructions Last Modified By Organization Details Last Modified Time 11/15/2023 [id number] medical record request* - Most recent diabetic eye exam [email or web address] Not available 02/02/2024 08:38:56 02/27/2024 [id number] Risks/Benefits/O pti ons/Side Effects of diagnosis and treatment discussed. UV protection and signs of skin cancer discussed [email or web address] Not available 02/14/2024 12:06:55 02/28/2024 [id number] medical record request* - Any lab work patient has gotten over the last 6 months. [email or web address] Not available 03/29/2024 11:39:46 02/28/2024 [id number] CATEGORY DESCRIPTION MINUTES Prepare to see the patient (e.g. review of tests) Obtain/review separately obtained history Perform medically appropriate exam/evaluation Order medications, tests, or procedures Bridge Opener/educate the patient/family/lead care manager Refer/communicate w/other healthcare professionals Document clinical information into health record Non-billable independent interp of results Non-billable care coordination TOTAL TIME 31835 (15-29) 08339 (30-44) 84447 (45-59) 87917 (60-74) 79729 (10-19) 37636 (20-29) 46731 (30-39) 42751 (40-54) 40 [email or web address] Not available 02/28/2024 14:55:39 08/28/2024 [id number] The patient's management plan involves exploring physical [...] into the health record, in minutes: 42 73327 (10-19) 90474 (20-29) 00109 (30-39) 82834 (40-54) [email or web address] Not available 08/28/2024 17:11:17 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 [address] [place], [address], 11/15/2023 14:19:52 11/15/19 24 11/15/2023 hemog lobin A1C, finge rstic k hemoglobin A1C % 7.0 % 4.0 - 5.6 Not Available [facility] [address] [place], [address], 11/15/2023 14:20:02 02/27/20 24 02/27/2024 SURGI STERLING [...] vs SCC Gross Descr iptio n: Guy nt name and date of verif ied. Recei carlita in forma andreas label ed with the patie nt's name and desig nated left knee [...] in one casse tte label ed A1. JAB 02/27 09:52 AM Micro scopi c Descr iptio n: A micro scopi c exami natio n has been perfo rmed and the resul t(s) are as noted above . DEA JARVIS M.D. Anastasia violetta Out Date: 02/28 12:38 Page 1 of 1 Not Available [facility] [address] [place], [address], 02/29/2024 12:38:35 02/28/2002/28/2024 hemog lobin A1C, finge rstic k hemoglobin A1C % 7.1 % 4.0 - 5.6 Not Available [facility] [address] [place], [address], 02/24/2024 14:12:26 02/28/20 24 02/28/2024 gluco se, finge rstic k, blood glucose, fingerstick 393 mg/dL 70 - 100 Not Available [facility] [address] [place], [address], 02/24/2024 14:12:25 Result Notes None recorded. Problems Name Problem SNOMED Code Status Onset Date Resolution Date Notes Provider Name and Address Organization Details Recorded Time Hemangiom a 943747937 Active 2014 From Automated Load;Provi nahid: Michael Pacheco: Active Not Available [facility] 6 05:12:51 [place] Active 2014 From Automated Load;Provi nahid: Michael Pacheco atus: Active Not Available [facility] 6 05:12:51 Senile hyperkera tosis 919094946 Active 2014 From Automated Load;Provi nahid: Michael Pachecous: Active Not Available [facility] 6 05:12:51 Actinic keratosis 974872849 Active 2015 From Automated Load;Provi nahid: Mushtaq Sidhu tus: Active Not Available [facility] 08:12:33 Problem Notes Documentation Provider Name and Address Organization Details Recorded Time Endocrinology Consult Note : [facility] [address] [address]RNUQABW, Marc D (id #[id number], : 1945) [facility] [address] [place] [address] Date: 4RE: Brant Alvarado, : 1945, PT ID #[id number] Tutt MD, I would like to thank you for referring Brant Alvarado to our practice for consultation and evaluation. I have enclosed a copy of the office evaluation for your records. Sincerely, Electronically Signed by: ROSEANNA AMATO APRN, GISELLAEncounter Reason/DateNone recorded 11/15/2023 - 02:30PM - ENDOCRINOLOGY SB History of Present IllnessMark is a 78-year-old male who presents office today after referral for diabetes management. Patient states his A1c has consistently been less than 8% over the last couple years, however he is currently taking a large amount of insulin. Patient states he is currently being followed by [facility] med and rehab physician for severe [...] mellitus uncontrolled-In the office today A1c 7%.Random cerct-vv-kbap blood glucose of 219 in the office [...] Once greater than 70 follow-up with ricien. Recommendations:Will obtain routine labs, orders placed and printed for patient.Continue Farxiga 5 dailyContinue Toujeo 76 units at bedtimeContinue Humalog 100 units twice a dayFollow-up in 3 monthsPodiatry consult Diabetic nutrition consult Eye exam: Patient states he is up-to-date and negative for diabetic retinopathy with Dr. Garcia in [place]. Records have been requested.10 g monofilament test: Performed and unremarkable. Podiatry consult has been placed for nail clipping per patient request in [place].Medical Nutrition therapy: Consult placed at today's oezfkT87.65: Type 2 diabetes mellitus with hyperglycemia MICROALBUMIN/CREATININE RATIO CMP GLUCOSE, FINGERSTICK, BLOOD HEMOGLOBIN A1C, FINGERSTICK Farxiga 5 mg tablet - Take 1 tablet(s) every day by oral route for 30 days. Qty: (90) tablet Refills: 0 Pharmacy: [facility] CAPACITOR TESTER REFERRAL - Schedule Within: provider's discretionPlace of service: OFFICE # of requested visits: 6 Procedure code: 74972, 52941, 43896, 23681, 93426, 73546, 24159, 43587, 00489, 95088 Authorization: [place] (Medicare[place]REQUIRED Not Required for [address], [address], 03736, 43964, 66376, 65336, 60609, 85527, 18970, 47132Czzesxbjlspkm: AARP (Medicare Supplement) NOTREQUIRED Not Required for 49290, 06899, 81749, 64647, 72577, 74428, 52041, 37280, 32988, 46383 BIOMASS PLANT TECHNICIAN/DIETITIAN REFERRAL - Schedule Within: provider's discretionPlace of service: OFFICE # of requested visits: 6 Procedure code: 76937 Authorization: [place]REQUIRED Not Required for [address]Ojarltgsuiqqk: AARP (Medicare Supplement) [place] [address] MEDICAL RECORD REQUEST* - Note to Provider: Most recent diabetic eye exam Declined, Treatment changed - insulin aspart (niacinamide)(U-100) 100 unit/mL (3 mL) subcu cartridge - Inject 100 unit(s) twice a day by subcutaneous route for 30 days. Qty: (180) mL Refills: 0 Pharmacy: [facility] Toujeo Max U-300 SoloStar 300 unit/mL (3 mL) subcutaneous insulin pen - Inject 76 unit(s) every day by subcutaneous route for 30 days. Qty: (24) mL Refills: 2 Pharmacy: [facility] Humalog KwikPen U-200 Insulin 200 unit/mL (3 mL) subcutaneous - Inject 100 unit(s) twice a day by subcutaneous route for 30 days. Qty: (90) mL Refills: 3 Pharmacy: [facility] Note to Pharmacy: Please disregard the [...] to see DANIEL MCLAUGHLIN MD at [facility] on or around 06/05/2024 Devonte Albert [facility] 11/16/2023 11:46:08 Pain Management Consult Note : [address] [address]HJBSUWS, Marc D (id #[id number], : 1945) [address] [address] Encounter Summary - Progress Note Date Printed: [...] received this fax in error, please visit [email or web address] to notify the sender and confirm that the information will be destroyed. If you do not have internet access, please call to notify the sender and confirm that the information will be destroyed. Thank you for your attention and cooperation. [ID:[id number]] Patient Brant Alvarado (79yo, M) #[id number] 1945 Patient Demographics: Address [address] [place] [address] Work Phone Encounter Notes: Encounter Reason/DateNone recorded 02/28/2024 - 02:00PM - PHYSICAL MEDICINE & REHABILITATION History of Present Weqajja34-ucbo-fmo male here for follow-up. He has chronic [...] recorded Vitals Ht: 5 ft 9 in Kmjqgk5702/28/2024 02:11 pm Wt: 225 lbs With zkhioqb5702/28/2024 02:13 pm BMI: 33. 02:13 pm BP: [...] # of requested visits: 6 Procedure code: 46329, 39628, 51925 Authorization: [place] (Med[place] for [address], [address], 66092Uwbfcyzotyoaj: AARP (Medicare Supplement) [place]REQUIRED [place] [address], 78[address], [address] 2. Lumbar wyllrnlhbhthyjjcxJ08.16: Spondylolisthesis, lumbar region 3. 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 Follow-up in 6 months.E11.42: Type 2 diabetes mellitus with diabetic polyneuropathy 4. Arthropathy of lumbar facet orheeU69.816: Spondylosis without myelopathy or radiculopathy, lumbar region Discussion Notes CATEGORYDESCRIPTIONMINUTES Prepare to see the patient (e.g. review of tests) Obtain/review separately obtained history Perform medically appropriate exam/evaluation Order medications, tests, or procedures Bridge Opener/educate the patient/family/caregiver Refer/communicate w/other healthcare professionals Document clinical information into health record Non-billable independent interp of results Non-billable care coordination TOTAL TIME 62249 (15-29) 16654 (30-44) 41873 (45-59) 10167 (60-74) 60426 (10-19) 83124 (20-29) 59749 (30-39) 73482 (40-54) 40 Return to Office to see DANIEL MCLAUGHLIN MD at [facility] on or around 06/05/2024 to see DANIEL MCLAUGHLIN MD at [facility] on or around 06/05/2024 KALPANA SAUCEDA PA-C for NEW PATIENT at [facility] on 08/22/2024 at 02:30 PM GISELLE INMAN MD for RECHECK at PHYSICAL MEDICINE & REHABILITATION on 08/28/2024 at 02:00 PM Patient Medical History: Allergies List Reviewed Allergies AMLODIPINE: Swelling Medications Reviewed Medications NameDate Source dqrjqduepunqm58/06/23 entered Alycia Vaughn Alma Srxlhex89/06/23 entered Alycia Vaughn bisoprolol fumarate 5 mg tabletTake 1 tablet(s) every day by oral route.10/14/16 entered LYNDA PUCKETT APRN clobetasoL 0.05 % topical ointmentAPPLY A THIN LAYER TO THE AFFECTED AREA(S) OF POISON YOSSI BY TOPICAL ROUTE 2 TIMES PER DAY UP TO 2 WEEKS PRN ZOZIML55/30/23 prescribed JAMES PACHECO APRN dapagliflozin fkjirtfjpsi04/09/22 entered VANESA ROMANO Farxiga 5 mg tabletTake [...] AREA(S) BY TOPICAL ROUTE 1-4 TIMES DAILY JLIUXS98/22/24 prescribed GISELLE INMAN MD jonpkavd44/09/22 entered VANESA ROMANO NexIUM 40 mg capsule,delayed releaseDaily Internal Note:Duration: 30 days;Frequency: daily;Medication Description: esomeprazole; Dosage:1; Route:oral; refills: entered jessica.243 predniSONE 10 mg tabletTake 1 tablet(s) every day by oral route.11/05/21 entered LISANDRA MONTERO PA-C Svqrggo26/09/22 entered VANESA ROMAON rosuvastatin 40 mg tabletTake 1 tablet(s) every [...] GISELLE INMAN MD Maris Rowe [facility] 02/28/2024 15:08:18 Endocrinology Consult Note : [address] [address]SBBXYWD, Marc D (id #[id number], : 1945) [address] [address] Encounter Summary - Progress Note Date Printed: [...] received this fax in error, please visit [email or web address] to notify the sender and confirm that the information will be destroyed. If you do not have internet access, please call to notify the sender and confirm that the information will be destroyed. Thank you for your attention and cooperation. [ID:[id number]] Patient Brant Alvarado (79yo, M) #[id number] 1945 Patient Demographics: Address [address] [place] [address] [place] [address] Work Phone Encounter Notes: Encounter Reason/DateNone recorded [...] pm Wt: 225 lbs104/30/2023 03:02 pm BMI: 33. 03:02 pm BP: 130/78 sitting R arm02/28/2024 [...] office today A1c 7.1%, up from 7%.Random fqksl-lp-aikd blood glucose of 393 in the office [...] states that he had these completed at [facility]. Records have been requested.Continue Farxiga 5 dailyContinue Toujeo 76 units at bedtimeContinue Humalog 75/25, 100 units three times a dayFollow-up in 3 monthsPodiatry consult placed again at today's visit at [facility] podiatry. Eye exam: Patient states he is up-to-date and negative for diabetic retinopathy with Dr. Garcia in [place]. Records have been requested.10 g monofilament test: Performed and unremarkable. Podiatry consult has been placed for nail clipping per patient request in [place].Medical Nutrition therapy: Consult placed at prior gwjccM60.65: Type 2 diabetes mellitus with hyperglycemia GLUCOSE, FINGERSTICK, BLOOD Fasting: N HEMOGLOBIN A1C, FINGERSTICK Farxiga 5 mg tablet - To be submitted on or around 02/29/2024 Take 1 tablet(s) every day by oral route for 30 days. Qty: (90) tablet Refills: 0 Pharmacy: [facility] CAPACITOR TESTER REFERRAL - Schedule Within: STATPlace of service: OFFICE # of requested visits: 6 Procedure code: 68137, 21621, 51876, 56125, 56683, 13914, 68616, 77307 Authorization: [place] for [address], 49262, 34943, 41558, 27684, 15438, 07036, 48884Jvgwoabrucrxw: AARP (Medicare Supplement) NOTREQUIRED Not Required for [address], 57514, 99344, 75140, 91848, 06237, 09987, 75062 Toujeo Max U-300 SoloStar 300 unit/mL (3 mL) subcutaneous insulin pen - To be submitted on or around 02/29/2024 Inject 76 unit(s) every day by subcutaneous route for 30 days. Qty: (24) mL Refills: 2 Pharmacy: [facility] BD ULTRA-FINE SHORT PEN NEEDLE 31 GAUGE X 5/16 - To be submitted on or around 02/29/2024 Use as directed inject insulin 3 times a day. Qty: 1 Unit Refills: 3 Supplier: [facility] Humalog Mix 75-25 KwikPen U-100 insulin 100 unit/mL subcutaneous pen - To be submitted on or around 02/29/2024 Inject 100 unit(s) 3 times a day by subcutaneous route before meal(s) for 30 days. Qty: (90) mL Refills: 2 Pharmacy: [facility] MEDICAL RECORD REQUEST* - Note to Provider: [...] SAUCEDA PA-C for NEW PATIENT at [facility] on 08/22/2024 at 02:30 PM GISELLE INMAN MD for RECHECK at PHYSICAL MEDICINE & REHABILITATION on 08/28/2024 at 02:00 PM Patient Medical History: Allergies List Allergies not reviewed (last reviewed 02/28/2024) AMLODIPINE: Swelling Medications Reviewed Medications NameDate Source mmotkrookysaj36/06/23 entered Alycia Vaughn Alma Wldwygv25/06/23 entered Alycia Vaughn bisoprolol fumarate 5 mg tabletTake 1 tablet(s) every day by oral route.10/14/16 entered LYNDA PUCKETT APRN clobetasoL 0.05 % topical ointmentAPPLY A THIN LAYER TO THE AFFECTED AREA(S) OF POISON YOSSI BY TOPICAL ROUTE 2 TIMES PER DAY UP TO 2 WEEKS PRN JOJRCA82/30/23 prescribed JAMES PACHECO APRN dapagliflozin hzmopjowubu97/09/22 entered VANESA ROMANO Farxiga 5 mg tabletTake [...] AREA(S) BY TOPICAL ROUTE 1-4 TIMES DAILY ONYSEQ04/22/24 prescribed GISELLE INMAN MD /09/22 entered VANESA ROMANO NexIUM 40 mg capsule,delayed releaseDaily Internal Note:Duration: 30 days;Frequency: daily;Medication Description: esomeprazole; Dosage:1; Route:oral; refills: entered jessica.243 predniSONE 10 mg tabletTake 1 tablet(s) every day by oral route.11/05/21 entered LISANDRA MONTERO PA-C Xamvgce15/09/22 entered VANESA ROMANO rosuvastatin 40 mg tabletTake [...] recorded Electronically Signed by: ROSEANNA AMATO APRN, DEHYDRATION PLANT OPERATOR Nataliya Fernandez [facility] 02/29/2024 10:04:04 Physical Medicine And Rehabilitation Note : [address] [address]EQVXBZL, Marc Violetta (id #[id number], : 1945) [address] [address] Encounter Summary - Progress Note Date Printed: [...] received this fax in error, please visit [email or web address] to notify the sender and confirm that the information will be destroyed. If you do not have internet access, please call to notify the sender and confirm that the information will be destroyed. Thank you for your attention and cooperation. [ID:[id number]] Patient Brant Alvarado (79yo, M) #[id number] 1945 Patient Demographics: Address [address] [place] [phone] Work Phone Encounter Notes: Encounter Reason/DateNone recorded [...] renal insufficiency. Patient tried epidural injection in [place]. Resulted in severe flare of pain and [...] 300 mg at night. Follow-up in 6 cctagwW94.42: Type 2 diabetes mellitus with diabetic polyneuropathy gabapentin 300 mg capsule - Take 1 capsule(s) twice a day by oral route. Qty: (60) capsule Refills: 5 Pharmacy: [facility] Note to Pharmacy: This will be combined with 400mg at afternoon gabapentin 400 mg capsule - Take 1 capsule(s) every day by oral route. Qty: (30) capsule Refills: 5 Pharmacy: [facility] Note to Pharmacy: This script [...] into the health record, in minutes: 42 63442 (10-19) 79423 (20-29) 00435 (30-39) 97603 (40-54) Return to Office KALPANA SAUCEDA PA-C for NEW PATIENT at [facility] on 09/19/2024 at 02:30 PM GISELLE INMAN MD for RECHECK at PHYSICAL MEDICINE & REHABILITATION [address] [facility] on 02/26/2025 at 02:00 PM Patient Medical History: Allergies List Reviewed Allergies AMLODIPINE: Swelling Medications Reviewed Medications NameDate Source lhuzntoifrkha61/06/23 entered Alycia Vaughn Alma Bbnjcxa94/06/23 entered Alycia Vaughn bisoprolol fumarate 5 mg tabletTake 1 tablet(s) every day by oral route.10/14/16 entered LYNDA PUCKETT APRN clobetasoL 0.05 % topical ointmentAPPLY A THIN LAYER TO THE AFFECTED AREA(S) OF POISON YOSSI BY TOPICAL ROUTE 2 TIMES PER DAY UP TO 2 WEEKS PRN TGMZUT63/30/23 prescribed JAMES PACHECO APRN dapagliflozin xgornyfwqhh82/09/22 entered VANESA ROMANO Farxiga 5 mg tabletTake [...] day by oral route. Note:take 400mg at whcnle49/10/25 prescribed GISELLE INMAN MD HumaLOG KwikPen U-200 [...] AREA(S) BY TOPICAL ROUTE 1-4 TIMES DAILY HQGCQY45/22/24 prescribed GISELLE INMAN MD ooawijeb79/09/22 entered VANESA ROMANO NexIUM 40 mg capsule,delayed releaseDaily Internal Note:Duration: 30 days;Frequency: daily;Medication Description: esomeprazole; Dosage:1; Route:oral; refills: entered jessica.243 predniSONE 10 mg tabletTake 1 tablet(s) every day by oral route.11/05/21 entered LISANDRA MONTERO PA-C Yingszh98/09/22 entered VANESA ROMANO rosuvastatin 40 mg tabletTake [...] Signed by: GISELLE INMAN MD Haylie castillo [facility] 08/29/2024 08:57:22 Procedures Surgical History Date Name Laterality Status Provider Name and Address Organization Details Recorded Time 09/20/19 25 Destruction Premalignant Lesion(s) cancelled Dorinda Marsh [facility] 08/22/2024 08:25:44 02/27/20 24 Biopsy Skin Lesion; Tangential completed Arielle Villanueva [facility] 02/27/2024 15:05:06 02/27/20 24 Skin Tag Removal completed KALPANA SAUCEDA PA-C [address] [place], [address], [facility] 02/27/2024 16:09:27 02/27/20 24 Destruction Premalignant Lesion(s) completed Arielle Villanueva [facility] 02/27/2024 15:17:40 02/27/20 24 Destruction BN Lesions completed Arielle Villanueva [facility] 02/27/2024 15:00:26 10/03/19 24 Suture/Staple removal cancelled Nidia Bonilla [facility] 09/29/2023 16:38:25 09/21/19 24 Wound Repair; Intermediate completed Dione Hill [facility] 09/21/2023 16:10:17 09/21/19 24 Excision MN Lesion (Ludivina); trunk, arm, leg completed BRAYDON BROWER DO [address] [place], [address], [facility] 09/21/2023 17:52:02 08/25/19 24 Biopsy Skin Lesion; Tangential completed JAMES PACHECO APRN [address] [place], [address], [facility] 08/25/2023 15:36:35 08/25/19 24 Destruction Premalignant Lesion(s) completed JAMES PACHECO APRN [address] [place], [address], [facility] 08/25/2023 15:35:44 08/08/19 24 Electromyography (EMG) with Nerve Conduction Study (NCV) completed GISELLE NIMAN MD [address] [place], [address], [facility] 08/08/2023 17:42:50 02/24/20 23 Destruction Premalignant Lesion(s) completed Alycia Vaughn [facility] 02/23/2023 15:43:23 11/18/19 23 Biopsy Skin Lesion; Tangential completed [facility] 11/17/2022 12:07:30 11/18/19 23 Destruction Premalignant Lesion(s) completed [facility] 11/17/2022 12:07:01 11/18/19 23 Destruction BN Lesions completed [facility] 11/17/2022 12:06:59 08/25/19 23 Destruction MN Lesion; scalp, neck, hand, foot, genitalia completed JAMES PACHECO, [employer]LE[employer] [address] [place], [address], [facility] 08/25/2022 14:34:09 08/25/19 23 Destruction Premalignant Lesion(s) completed JAMES PACHECO, TABATHA [address] [place], [address], [facility] 08/24/2022 16:37:21 08/25/19 23 Destruction BN Lesions completed Jami Kessler [facility] 08/24/2022 14:57:25 11/07/19 22 Injection - Joint/Bursa, Major completed Fabian SAUCEDA PA-C [address] [place], [address], [facility] 11/06/2021 15:18:54 08/21/19 22 Destruction Premalignant Lesion(s) completed [facility] 08/20/2021 11:51:35 12/17/19 18 Biopsy Prostate, Needle w/Transrectal US completed TRACY MINOR MD [address] [place], [address], [facility] 12/16/2017 10:40:55 05/02/19 18 Wound Repair; Intermediate completed BRAYDON BROWER DO [address] [place], [address], [facility] 05/02/2017 17:49:13 05/02/19 18 Excision BN lesion; trunk, arms or legs completed BRAYDON BROWER DO [address] [place], [address], [facility] 05/02/2017 17:49:11 10/15/19 17 Destruction MN Lesion; trunk, arm, leg completed BRAYDON BROWER, DO [address], [place], [address], [facility] 10/14/2016 17:50:02 Other completed Haylie Fraserholz [facility] 11/28/2017 13:39:11 Knee arthroscopy/surgery completed Rhonda Tate [facility] 12/07/2017 10:48:50 Imaging Results None recorded. Procedure Notes None recorded. Medical Equipment None Reported. Allergies Allergen ID Allergen Name Allergen Category Reaction Reaction Severity Criticality Documentation Date Start Date Code Code System Note Provider Name and Address Organization Details Recorded Time 258070 amlodipin e medicatio n swelling Not available Not available 08/20/2021 26385 [facility] 11:40:46 Medications Name Sig Start Date Stop [...] 08/28/2024 175.26 cm 70 /min 128/76 mm[Hg] [facility] 08/28/2024 14:06:04 Date Recorded Body height Body mass index (BMI) Body weight Heart rate Systolic And Diastolic Provider Name and Address Organization Details Last Updated DateTime 11/15/2023 175.26 cm 33.1 kg/m2 346532.7 9 g 66 /min 126/78 mm[Hg] Eileen Asher [facility] 11/15/2023 14:16:04 Date Recorded Body height Body mass index (BMI) Body weight Heart rate Systolic And Diastolic Provider Name and Address Organization Details Last Updated DateTime 02/28/2024 175.26 cm 33.2 kg/m2 111709.2 8 g 80 /min 130/78 mm[Hg] Pau Normanette [facility] 02/28/2024 15:04:58 Date Recorded Body height Body mass index (BMI) Body weight Heart rate Systolic And Diastolic Provider Name and Address Organization Details Last Updated DateTime 02/28/2024 175.26 cm 33.2 kg/m2 159629.2 8 g 82 /min 132/76 mm[Hg] [facility] 02/28/2024 14:15:45 Social History Question Answer Notes LastModified by Organizat ion Details LastModified Time Tobacco Smoking Status Current Every Day Smoker LYNDA PUCKETT, [employer]LE[employer] [address] [place], [address], [facility] 10/14/2016 10:10:00 Marital Status Informatio n not [...] Hyperthyroidism N MRSA N Heart Arrhythmia N Head Trauma/Injury N Emphysema N COPD Y Depression N Pneumonia N Prostate Problems Y Cancer Prostate Y Gastrointestinal Disease N Paralysis N Anxiety Disorder N Autoimmune disease N Vision or Eye Problems N Arthritis Y Blood Clot N Acid Reflux (GERD) Y Cancer Y Melanoma N Stroke N Crohn's Disease N Leg or Foot Ulcers N Skin Cancer Y Arrhythmia N Rheumatoid Arthritis N Headaches N Fibromyalgia N Kidney Disease Y Heart Problems N [...] Thyroid Disease N Hernia N Ostomy N Hypothyroidism N Glaucoma N Lung Disease N Thyroid nodule mass [...] Polyps N Stomach trouble N Heart Attack (NV) N Mental Illness N Diabetes Y High [...] Diagnosis SNOMED-CT Code Diagnosis ICD10 Code Diagnosis IMO Codes Diagnosis Note [id number] BRAYDON BROWER DO [facility] [address] [place] [address] 10/14/2016 09:55:10 10/15/2016 11:49:38 Solar lentiginosis 959765720 L81.4 Benign Reassuranc e'sunscree n and hat 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 9264699 L82.1 Benign Reassuranc e 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 Leave the bandage on for 24 hrs. Clean the area daily with warm soapy water, and apply polysporin ointment and a bandaid once daily until healed. Call the office if any increase in redness, drainage, or pain.f/u 6 months for FSE [id number] BRAYDON BROWER DO [facility] [address] [place] [address] 04/13/2017 10:08:59 04/14/2017 11:32:01 Solar lentiginosis 707226868 L81.4 Benign Reassuranc e'sunscree n and hat 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 2934733 L82.1 Benign Reassuranc e Senile angioma 8006401 I 78.1 Benign Reassuranc e Stasis dermatitis 259286 05 I87.2 discussed diagnosis and treatment plan with patientAml odipine is likely contributi ng to condition- he will talk to pcp about a chanehe can continue the triamcinol one cream on these areas after the infection has cleared on right leg History of malignant basal cell neoplasm of skin 455343578 Z85.828 L anterior shouldersc ar - no recurrence History of squamous cell carcinoma of skin 393821164 Z85.828 right upper chestscar - no recurrence Transient acantholytic dermatosis 81016331 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 back and flanksdisc ussed diagnosis and treatment plan with patientthe TAC cream will help with itching and the condition is likely toresolve after the weather changesf/u prn Epidermoid cyst of skin 165920195 L72.0 right upper posterior legdiscuss ed with patient this area looks inflamed and possibly starting to be infected todayrecom mend he take the Keflex as directed for leg, should also help this and f/u in two weeks forexcisio nf/u as scheduled Cellulitis of lower limb 224431401 L03.119 likely secondary to scratching stasis dermatitis discussed with patientr/a /b of Keflex discussedc all the office if does not resolve or worsens in the next few daysf/u prn [id number] BRAYDON BROWER, [facility] [address] [place] [address] 05/02/2017 14:41:36 05/03/2017 08:03:58 Epidermoid cyst 215486615 L72.0 R upper posterior leg Discussed diagnosis [...] drainage, or pain. Cellulitis of lower limb 440816252 L03.119 no cellulitis of LE today much improved I gave him another rx for keflex due to the area of excision at buttock, higher risk of infection. Skin sensa tion disturbance 66437386 R20.9 cyst [id number] DANIEL MCLAUGHLIN MD SURGERY SCHEDULE [address] [place] [address] 07/04/2017 07:22:58 07/04/2017 07:23:07 [id number] DANIEL MCLAUGHLIN MD SURGERY SCHEDULE [address] [place] [address] 07/27/2017 10:18:57 07/27/2017 10:19:[id number] MD [facility] CLOS[facility] [address] [facility] [address] [address] [place] [address] 11/28/2017 12:51:53 12/02/2017 11:47:19 Cervical radiculopathy 46099781 M54.12 Time spent reviewing images, discussing the diagnosis and coordinati ng care: 30 min [id number] TRACY MINOR MD UROLOGY [facility] CLOSED [address] [place] [address] 12/07/2017 10:43:04 12/07/2017 12:49:08 Prostate specific antigen above reference range 694428760 R97.20 [id number] TRACY MINOR MD [facility]OLOGY [facility] [address] [place] [address] 12/16/2017 09:48:33 12/16/2017 11:10:49 Prostate specific antigen above reference range 939011806 R97.20 [id number] TRACY MINOR MD UROLOGY [facility] [address] [place] [address] 01/02/2018 15:50:19 01/04/2018 14:06:45 Malignant neoplasm of prostate 917534737 C61 [id number] DANIEL MCLAUGHLIN MD SURGERY SCHEDULE [address] [place] [address] 02/14/2018 12:33:21 02/14/2018 12:33:48 [id number] MD [facility] [address] [place] [address] 06/06/2018 15:32:43 06/06/2018 16:21:56 History of malignant basal cell neoplasm of skin 166780109 Z85.828 L anterior shouldersc ar - no recurrence History of squamous cell carcinoma of skin 381662349 Z85.828 right upper chestscar - no recurrence Lentigo 032213922 L81.4 Reassuranc e and education regarding the disorder and options. 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 5702535 L82.1 Reassuranc e and education regarding the disorder and options. Hemangioma 799969304 D18 .00 Reassuranc e and education regarding the disorder and options. Lipoma 90873732 D17.9 Reassuranc e and education regarding the disorder and options. [id number] DANIEL MCLAUGHLIN MD SURGERY SCHEDULE [address] [place] [address] 02/26/2019 11:20:49 02/26/2019 11:21:07 [id number] MD [facility] [address] [place] [address] 10/23/2019 14:48:45 10/23/2019 15:26:01 History of malignant basal cell neoplasm of skin 640638626 Z85.828 L anterior shouldersc ar - no recurrence History of squamous cell carcinoma of skin 816599082 Z85.828 right upper chestscar - no recurrence Lentigo 672828971 L81.4 Reassuranc e and education regarding the disorder and options. 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 2064728 L82.1 Reassuranc e and education regarding the disorder and options. Hemangioma 454058323 D18 .00 Reassuranc e and education regarding the disorder and options. Lipoma 20883640 D17.9 Reassuranc e and education regarding the disorder and options. [id number] TABATHA STEPHENS [facility] [address] [place] [address] 08/20/2020 11:17:44 08/20/2020 11:50:35 History of squamous cell carcinoma of skin 430920124 Z85.828 NO EVIDENCE OF REOCCURENC E RECOMMEND ANNUAL FSE History of malignant basal cell neoplasm of skin 763206710 Z85.828 NO EVIDENCE OF REOCCURREN CE RECOMMNEND ANNUAL FSE Solar lentiginosis 18419 2006 L81.4 BENIGN APPEARANCE , PT REASSURED RECOMMEND SUN PROTECTIVE CLOTHING AND EQUATE SPORT SUNSCREEN AND CERAVE AM SUNSCREEN LOTION OTC DAILY. Hemangioma 075566997 D18 .00 BENIGN APPEARANCE , PT REASSURED Raised katie orrheic keratosis 2096014654 97646 L82.1 BENIGN APPEARANCE , PT REASSURED Multiple skin tags 29456 7009 L91.8 BENIGN APPEARANCE , PT REASSURED [id number] DANIEL MCLAUGHLIN MD SURGERY SCHEDULE [address] [place] [address] 06/05/2021 13:32:06 06/05/2021 13:32:28 [id number] TABATHA STEPHENS [facility] [address] [place] [address] 08/20/2021 11:37:58 08/20/2021 11:58:44 History of squamous cell carcinoma of skin 132012522 Z85.828 NO EVIDENCE OF REOCCURENC E RECOMMEND ANNUAL FSE History of malignant basal cell neoplasm of skin 351836902 Z85.828 NO EVIDENCE OF REOCCURREN CE RECOMMNEND ANNUAL FSE Solar lentiginosis 49402 2006 L81.4 BENIGN APPEARANCE , PT REASSURED RECOMMEND SUN PROTECTIVE CLOTHING AND EQUATE SPORT SUNSCREEN AND CERAVE AM SUNSCREEN LOTION OTC DAILY. Hemangioma 100371912 D18 .00 BENIGN APPEARANCE , PT REASSURED Raised katie orrheic keratosis 5680702321 67739 L82.1 BENIGN APPEARANCE , PT REASSURED Multiple skin tags 16513 7009 L91.8 BENIGN APPEARANCE , PT REASSURED Actinic keratosis 873263 007 L57.0 CRYO X 4RISKS OF CRYO SURGERY DISCUSSED; POST OP CARE INSTRUCTIO NS PROVIDED. VERBAL CONSENT TO TREAT GIVEN BY PATIENT. RECHECK IF ANY PERSISTING Multiple b enign melanocytic nevi 633169117 D22.9 BENIGN APPEARANCE , MONITOR AND RECHECK WITH CHANGE Seborrheic dermatitis 50 946209 L21.9 CLEAR TODAY CONTROLLED PT IS TREATING WITH TAC AND WILL CALL US IF HE NEEDS REFILLS [id number] LISANDRA MONTERO PA-C [facility] CL[facility] [address] [place] [address] 10/27/2021 14:58:26 10/27/2021 16:07:05 Pain of left knee joint 9446033807 43773 M25.562 Tear of la teral meniscus of knee 087713319 S83.282A Discussed pathology with patient and reviewed [...] understand ing and agreement with this plan. [id number] Fabian SAUCEDA PA-C [facility] [address] [place] [address] 11/06/2021 14:03:22 11/06/2021 15:12:42 Osteoarthritis of knee 545353518 M17.9 Bilateral knee arthritis with an acute episode of pain on the left knee. We discussed the multitude of etiologies and knee replacemen t versus steroid. Fortunatel y patient agrees that steroid is the better option as that would be my strong recommenda tion. He was given injection today and he will follow-up when pain or buckling episodes recur [id number] JAMES PACHECO APRN [facility] [address] [place] [address] 08/24/2022 14:27:27 08/24/2022 15:00:25 History of squamous cell carcinoma of skin 634569403 Z85.828 NO EVIDENCE OF REOCCURENC E RECOMMEND ANNUAL FSE History of malignant basal cell neoplasm of skin 606130514 Z85.828 NO EVIDENCE OF REOCCURREN CE RECOMMNEND ANNUAL FSE Solar lentiginosis 25619 2006 L81.4 BENIGN APPEARANCE , PT REASSURED RECOMMEND SUN PROTECTIVE CLOTHING AND EQUATE SPORT SUNSCREEN AND CERAVE AM SUNSCREEN LOTION OTC DAILY. Hemangioma 336509178 D18 .00 BENIGN APPEARANCE , PT REASSURED Raised katie orrheic keratosis 5508527975 07815 L82.1 BENIGN APPEARANCE , PT REASSURED Multiple skin tags 98495 7009 L91.8 BENIGN APPEARANCE , PT REASSURED Actinic keratosis 065122 007 L57.0 CRYO X 4RISKS OF CRYO SURGERY DISCUSSED; POST OP CARE INSTRUCTIO NS PROVIDED. VERBAL CONSENT TO TREAT GIVEN BY PATIENT. RECHECK IF ANY PERSISTING Multiple b enign melanocytic nevi 085948475 D22.9 BENIGN APPEARANCE , MONITOR AND RECHECK WITH CHANGE Neoplasm o f uncertain behavior of skin 71182592 D48.5 R/O SCCLOCATIO N: RIGHT FRONTAL CROWNSHAVE BIOPSYEDC x 3 WAS DONEGEL FOAM/PRESS URE BANDAGESEE PROCEDURE NOTECONSEN T SIGNEDWOUN D CARE INSTRUCTIO NS PROVIDEDPH MAYA TAKENFOLLO W UP PER PATH AND 3 MONTHS RECHECK Onychomycosis 638629176 B35.1 DISCUSSED TX OPTIONSDEF ERS TX TODAY, ADVISED TO RTC WITH ANY CHANGES Inflamed s eborrheic keratosis 533173307 L82.0 CRYO X 2RISKS OF CRYO SURGERY DISCUSSED; POST OP CARE INSTRUCTIO NS PROVIDED. VERBAL CONSENT TO TREAT GIVEN BY PATIENT. PARMJIT IF PERSISTING . Squamous c ell carcinoma in situ of skin 663908476 D04.9 BIOPSY PROVEN LESION TREATED ABOVE [id number] JAMES PACHECO APRN [facility] [address] [place] [address] 11/17/2022 11:54:47 11/17/2022 12:31:19 History of squamous cell carcinoma in situ 9180014550 9105 Z86.008 NO EVIDENCE OF RECURRENCE RECOMMEND 6 MONTH FSE Solar lentiginosis 92828 2006 L81.4 BENIGN APPEARANCE , PT REASSURED RECOMMEND SUN PROTECTIVE CLOTHING AND EQUATE SPORT SUNSCREEN AND CERAVE AM SUNSCREEN LOTION OTC DAILY. Hemangioma 234752851 D18 .00 BENIGN APPEARANCE , PT REASSURED Raised katie orrheic keratosis 3376852314 07289 L82.1 BENIGN APPEARANCE , PT REASSURED Multiple skin tags 78748 7009 L91.8 BENIGN APPEARANCE , PT REASSURED Actinic keratosis 977542 007 L57.0 CRYO X 5RISKS OF CRYO [...] Neoplasm o f uncertain behavior of skin 97590138 D48.5 R/O SCCLOCATIO N: R LOWER FOREARMSHA VE BIOPSYEDC x 3 WAS DONEGEL FOAM/PRESS URE BANDAGESEE PROCEDURE NOTECONSEN T SIGNEDWOUN D CARE INSTRUCTIO NS PROVIDEDPH MAYA TAKENFOLLO W UP PER PATH Contact de rmatitis caused by urushiol from [place] poison yossi 123293850 L25.5 HX OF POSION YOSSI INTERMITTE NT FLARESREQU ESTS REFILL CLOBETASOL 0.05% OINTMENT BID UP TO 2 WEEKS PRN FLARE Inflamed s eborrheic keratosis 309000581 L82.0 CRYO X 1RISKS OF CRYO SURGERY DISCUSSED; POST OP CARE INSTRUCTIO NS PROVIDED. VERBAL CONSENT TO TREAT GIVEN BY PATIENT. PARMJIT IF PERSISTING . [id number] JAMES PACHECO APRN [facility] [address] [place] [address] 02/23/2023 15:29:53 02/23/2023 15:47:36 Actinic keratosis 425581605 L57.0 DISCUSSED TX OPTIONS - PT NEVER STARTED EFUDEX AFTER LAST VISITPT WANTS TO CRYO TODAYCRYO X 8RISKS OF CRYO SURGERY DISCUSSED; POST OP CARE INSTRUCTIO YOUNG PROVIDED. VERBAL CONSENT TO TREAT GIVEN BY PATIENT. RECHECK IF ANY PERSISTING START FLUOROURAC IL 5% SOLUTION NEW LESIONS QD X3 WEEKS TO SPOT TREAT NEW PRECANCERS EXPECTED REACTION AND UV PROTECTION DISCUSSEDR ECHECK IN 6 MONTHS Scar 150672639 L90.5 HX VERRUCOUS KERATOSIS- BENIGN [id number] OSCAR VASQUEZ PA-C [facility] CL[facility] [address] [facility] [address] [place] [address] 05/23/2023 08:28:49 05/24/2023 04:41:02 Low back pain 487545412 M54.50 Pain in right foot 30011 30834 52090 M79.671 [id number] GISELLE INMAN MD [facility] CLOSED [address] [place] [address] 08/08/2023 12:40:17 08/10/2023 10:51:01 Bilateral carpal tunnel syndrome 3212071431 3764618 G56.03 Patient already has wrist splints that were his 's. He has used them intermitte ntly throughout the years but never in a consistent manner. Recommend that he wear them at night consistent ly for 2 months. If no improvemen t in numbness or physicist astrophysics strength, would consider surgical evaluation . 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 [id number] JAMES PACHECO APRN [facility] [address] [place] [address] 08/25/2023 14:22:43 08/25/2023 15:09:01 Scar 088520032 L90.5 HX VERRUCOUS KERATOSIS- BENIGN Actinic keratosis 007 L57.0 DISCUSSED TX OPTIONS - PT [...] Neoplasm o f uncertain behavior of skin 61288789 D48.5 ISK R/O SCCLOCATIO N: R WRISTSHAVE BIOPSYGEL FOAM/PRESS URE BANDAGESEE PROCEDURE NOTECONSEN T SIGNEDWOUN D CARE INSTRUCTIO NS PROVIDEDPH MAYA TAKENFOLLO W UP PER PATH Raised katie orrheic keratosis 9367954669 25387 L82.1 BENIGN APPEARANCE , PT REASSURED Solar lentiginosis 93782 2007 L81.4 BENIGN APPEARANCE , PT REASSURED RECOMMEND SUN PROTECTIVE CLOTHING AND EQUATE SPORT SUNSCREEN AND CERAVE AM SUNSCREEN LOTION OTC DAILY. Multiple skin tags 54049 7009 L91.8 BENIGN APPEARANCE , PT REASSURED Hemangioma 975291261 D18 .00 BENIGN APPEARANCE , PT REASSURED [id number] BRAYDON BROWER DO [facility] [address] [place] [address] 09/21/2023 15:08:53 09/21/2023 16:20:41 Squamous cell carcinoma of upper extremity 501655677 C44.622 right wristDiscu ssed diagnosis SCCrecomme nd [...] has DM- recommend keflex for infection prevention [id number] GISELLE INMAN MD [facility] CLOSED [address] [place] [address] 11/10/2023 13:41:57 11/15/2023 07:30:26 Polyneuropathy due to diabetes mellitus 86834048 E11.42 Emphasized the importance of strict glycemic control. Offered to check A1c but patient plans to discuss this with his primary care physician so that it can be checked closer to home. He does request endocrinol ogy referral. Will place that per his request. Bilateral carpal tunnel syndrome 2139240107 0137284 G56.03 Patient reports some improvemen t in symptoms. He feels that it is well-contr olled and is not interested in surgical referral. He will continue wearing brace as needed. Low back pain 291376456 M54.50 He has chronic low back pain. [...] that as needed. Chronic ne uropathic pain 906224174 M79.2 Increase gabapentin to 300 mg in the morning, 400 mg in the afternoon, and 300 mg at night as most of his pain is in the evening. Trial lidocaine ointment. If no improvemen t could try capsaicin and/or compoundin g agent. Follow-up in 4 months [id number] ROSEANNA AMATO APRN ENDOCRINO [facility] [address] [place] [address] 11/15/2023 14:07:39 11/15/2023 16:01:14 Uncontrolled type 2 diabetes mellitus 064020079 E11.65 In the office today A1c 7%.Random [...] 70. Once greater than 70 follow-up with protien. Recommenda tions:Will obtain routine labs, orders placed and printed for patient.Co ntinue Farxiga 5 dailyConti nue Toujeo 76 units at bedtimeCon tinue Humalog 100 units twice a dayFollow- up in 3 monthsPodi atry consult Diabetic nutrition consult Eye exam: Patient states he is up-to-date and negative for diabetic retinopath y with Dr. Garcia in [place]. Records have been requested. 10 g monofilame nt test: Performed and unremarkab le. Podiatry consult has been placed for nail clipping per patient request in [place]. Medical Nutrition therapy: Consult placed at today's visit Essential hypertension 79472063 I10 Goal BP less than 140/90BP in office today 126/78Cont inue current bisoprolol , hydrochlor othiazide, losartan daily as prescribed by PCP.Contin ue BP monitoring at home. Hyperlipidemia 45413662 E78.5 Orders for fasting lipid panel has been placed and printed for patient to have obtained.C ontinue current rosuvastat in 40 mg, Zetia 10 mg therapy as prescribed by PCP.Patien t states understand ing of the above plan of care and with no questions or concerns at this time. Peripheral neuropathy due to type 2 diabetes mellitus 3073834435 107 E11.42 Patient currently taking gabapentin 400 mg daily per PCP. Patient states this dose was increased recently and he is doing better with his symptoms. [id number] KALPANA SAUCEDA PA-C [facility] [address] [place] [address] 02/27/2024 14:26:01 02/27/2024 15:16:46 Actinic keratosis 614154129 L57.0 Pre-malign ant dx discussedR ecommended cryosurger yLN x 8See procedure notePatien t tolerated procedure wellAfter care given to patient He did not treat scalp with 5FU solution that James prescribed Raised katie orrheic keratosis 1299899932 22827 L82.1 Benign reassuranc e Solar lentiginosis 99873 2007 L81.4 Benign reassuranc e Multiple skin tags 79071 7009 L91.8 Benign reassuranc eGradle removal of tag on L axilla. Gets hung on clothingSe e procedure noteAfter care instructio ns provided Hemangioma 069827820 D18 .00 Benign reassuranc e History of squamous cell carcinoma of skin 094560230 Z85.828 R wrist s/p excision 09-21-2023 Dr. Frye EOR Patient ad vised about exposure to the sun 888444890 Z71.89 Counseled on sun protective clothing/h ats and daily UV protection with otc broad-spec trum SPF 30+ on exposed areas. Regular self-skin exams recommende d. Pt encouraged to RTC with any new/changi ng lesions. Inflamed s eborrheic keratosis [id number] L82.0 Benign reassuranc e. Treated with LN due to pt reported sx of itch/disco mfortLN x 2See procedure notePatien t tolerated procedure wellAfter care instructio ns provided Neoplasm o f uncertain behavior of skin [id number] D48.5 L knee - r/o verrucous keratosis vs SCC shave bx taken today with ED to basesee procedure notewound care was givenconse nt was signedphot o takenf/up per path Tenderness of skin 02176 9000 R20.8 Skin tag L axilla [id number] ROSEANNA AMATO APRN ENDOCR[facility] [address] [place] [address] 02/28/2024 14:51:25 03/01/2024 04:35:13 Uncontrolled type 2 diabetes mellitus [id number] E11.65 In the office today A1c 7.1%, [...] states that he had these completed at [facility]. Records have been requested. Continue Farxiga 5 dailyConti nue Toujeo 76 units at bedtimeCon tinue Humalog 75/25, 100 units three times a dayFollow- up in 3 monthsPodi atry consult placed again at today's visit at [facility] podiatry. Eye exam: Patient states he is up-to-date and negative for diabetic retinopath y with Dr. Garcia in [place]. Records have been requested. 10 g monofilame nt test: Performed and unremarkab le. Podiatry consult has been placed for nail clipping per patient request in [place]. Medical Nutrition therapy: Consult placed at prior visit Peripheral neuropathy due to type 2 diabetes mellitus [id number] 107 E11.42 Patient currently taking gabapentin 400 mg daily per PCP. Patient states this dose was increased recently and he is doing better with his symptoms. Essential hypertension [id number] I10 Goal BP less than 140/90BP in office today 130/78Cont inue current bisoprolol , hydrochlor othiazide, losartan daily as prescribed by PCP.Contin ue BP monitoring at home. Hyperlipidemia 76673799 E78.5 Orders for fasting lipid panel has been placed and printed for patient to have obtained.C ontinue current rosuvastat in 40 mg, Zetia 10 mg therapy as prescribed by PCP.Cristobal rivas states understand ing of the above plan of care and with no questions or concerns at this time. [id number] GISELLE INMAN MD [facility] [address] [place] [address] 02/28/2024 13:48:09 02/29/2024 09:11:49 Lumbosacral radiculopathy 9513601 M54.17 Refer to PT to address back pain and to help centralize pain. Improve core stability and teach him a home exercise program to include stretching . He also is seeing pain physician locally and is planning to have a lumbar epidural soon. Lumbar spondylolisthesis [id number] 02194 M43.16 Polyneurop athy due to type 2 diabetes mellitus [id number] E11.42 change gabapentin from 300mg qAM, 400mg qPM, 300 qhs to 300mg qid. Follow-up in 6 months. Arthropath y of lumbar facet joint 841867020 M47.816 [id number] GISELLE INMAN MD [facility] [address] [place] [address] 08/28/2024 13:37:44 08/29/2024 04:17:50 Chronic low back pain [id number] M54.50 G89.29 [id number] He has chronic low back pain. He [...] insufficie ncy. Patient tried epidural injection in [place]. Resulted in severe flare of pain and [...] low back pain. Diabetic p eripheral neuropathy [id number] E11.42 763630 Renew gabapentin . Taking 300 mg in [...] Name 02/23/2024 1 [place] [id number] Brant Ashleyk [id number] Brant Ashleyk 09/18/2024 1 [place] Brant Arguellomack [id number] Brant Arguellomack 09/18/2024 2 [employer] (MEDICARE SUPPLEMENT) Brant Ashleyk [id number] Brant Ashleyk Notes Date Note Type Note Provider Name [...] cancer, diabetic neuropathy, hypertension, hyperlipidemia. ROSEANNA AMATO, [employer] [address] [place], [address], [facility] 11/15/2023 15:41:02 02/27/2024 text/html ROS as noted in the HPI Established Patient--last saw James Pacheco [employer]LEMAN 08-25-2023 Patient presents to the clinic for [...] family history of melanoma. KALPANA SAUCEDA PA-C [address] [place], [address], [facility] 02/27/2024 16:10:58 02/28/2024 text/html 79-year-old male here [...] Glucose levels are improving. GISELLE INMAN MD [facility] [place], [address], [facility] 02/28/2024 14:55:42 02/28/2024 text/html ROS as noted in the HPI Nilesh is an 79-year-old male presents office [...] concerns at this time. ROSEANNA AMATO APRN [address] [place], [address], [facility] 02/29/2024 09:10:37 08/28/2024 text/html The patient is an 79-year-old male presenting with [...] his primary care provider. GISELLE INMAN MD [address] [place] [address], [address], [facility] 08/28/2024 17:11:19
[2025-01-03 16:16] LABS: Hematocrit 36.6 % (42.0-52.0); Hemoglobin 12.1 g/dL (14.1-18.0); Immature Granulocytes % 0.4 %; Mean Corpuscular HGB Conc 33.1 g/dL (31.8-35.4); Mean Corpuscular Hemoglobin 33.0 pg (27.0-31.2); Mean Corpuscular Volume 99.7 fl (80-94); Nucleated Red Blood Cells % 0 %; Platelet Count 163 K/mm3 (142-424); Red Blood Count 3.67 M/mm3 (4.60-6.20); Red Cell Distribution Width-SD 57.9 fL; White Blood Count 9.3 K/mm3 (4.8-10.8)
[2025-01-03 16:32] LABS: Hemoglobin A1C 6.7 % (4.0-6.0)
[2025-01-03 16:47] LABS: Alanine Aminotransferase 32 U/L (12-78); Albumin Level 4.1 g/dl (3.5-5.0); Albumin/Globulin Ratio 1.6 (1.1-1.8); Alkaline Phosphatase 70 U/L (38-126); Anion Gap 16.1 mEq/L (5-15); Aspartate Amino Transferase 28 U/L (17-59); Bilirubin,Total 1.0 mg/dl (0.2-1.3); Blood Urea Nitrogen 33 mg/dl (9-20); Calcium 9.1 mg/dl (8.4-10.2); Carbon Dioxide 24 mmol/L (22.0-30.0); Chloride 105 mmol/L (98-107); Cholesterol 170 mg/dl (140-200); Creatinine,Serum 1.60 mg/dl (0.66-1.25); Estimated Glomerular Filt Rate 42 ml/min (>60); GFR (African American) 51 ML/MIN (>60); Globulin 2.6 g/dL (1.3-3.2); Glucose 277 mg/dl (74-100); HDL Cholesterol 48 mg/dl (40-60); Potassium 4.1 mmoL/L (3.5-5.1); Sodium 141 mmol/L (136-145); Total Protein,Serum 6.7 g/dl (6.3-8.2); Triglycerides 409 mg/dl (30-150)
== END 2025-01-03 23:59 | disposition home or self-care (01) ==
LOC: LAB 15:59
PROVIDERS: PCP Internal Medicine Adolescent Medicine; Visit Provider Internal Medicine Adolescent Medicine
DX: C61 Malignant neoplasm of prostate (principal); E11.9 Type 2 diabetes mellitus without complications; E78.5 Hyperlipidemia, unspecified
CPT/HCPCS: 36415; 80053; 80061; 83036; 85025